=== PATIENT | female | born 1975 | race Caucasian/White ===

== ENCOUNTER 2017-06-28 09:16 | Day surgery (SDC) | payer OTHER ==
[2017-06-25 10:13] VITALS: BMI 19.3
[~2017-06-28 09:16] MED LIST: LEVOFLOXACIN 500 MG PREMIX BAG IVPB ONE
[2017-06-28] MEDS ORDERED: ONDANSETRON 4 MG/2 ML VIAL IVPUSH PRN (09:26)
[2017-06-28] MEDS ORDERED: oxyCODONE HCL 5 MG TABLET PO PRN (09:26)
[2017-06-28] MEDS ORDERED: LACTATED RINGERS SOLUTION 1,000 ML IV SCH (09:30)
[2017-06-28] MEDS ORDERED: MIDAZOLAM HCL 2 MG/2 ML SINGLE DOSE VIAL ONE ×2 (10:28)
[2017-06-28] MEDS ORDERED: LEVOFLOXACIN 500 MG PREMIX BAG IVPB ONE (10:30)
[2017-06-28] MEDS ORDERED: LEVOFLOXACIN 500 MG IVPB 100 ML IVPB ONE (10:47)
[2017-06-28] MEDS ORDERED: DEXAMETHASONE SOD PHOSPHATE 4 MG/1 ML VIAL ONE (10:56)
[2017-06-28 12:36] VITALS: TEMP 98
--- NOTE | 2017-06-28 13:11 | OP ---
Operative Note - Note: Operative Date: 06/28/17 Pre-Operative Diagnosis: left renal stone Operation: left eswl Findings: left 8 mm mid pole stone Post-Operative Diagnosis: Same as Pre-op Surgeon: Antolin Elizabeth Anesthesia: General
[2017-06-28 15:10] VITALS: BP 106/66; PULSE 84
--- NOTE | 2017-06-29 11:03 | OP ---
DATE OF OPERATION: 06/28/2017 PREOPERATIVE DIAGNOSIS: Left renal stone. POSTOPERATIVE DIAGNOSIS: Left renal stone. PROCEDURE: Left extracorporeal shock wave lithotripsy. ATTENDING: Merary Hector MD ANESTHESIA: General. DESCRIPTION OF OPERATION: The patient was brought in the operating room and placed in supine position on the operating room table. General anesthesia was administered. An 8-mm stone was noted under real-time ultrasonography and fluoroscopy. Antibiotics were given preoperatively. Lithotripsy was performed with 3000 impulses at 17 joules of power administered. Excellent fragmentation of the stone was noted. No complications were noted. The patient tolerated the procedure very well. MERARY HECTOR M.D. /[id number]
== END 2017-06-28 15:00 | disposition home or self-care (01) ==
LOC: JASU-SURG 09:16
PROVIDERS: ATTEND Urology
PROC: 0TF4XZZ Fragmentation in Left Kidney Pelvis, External Approach (ICD-10-PCS; principal; 2017-06-28 10:15)
DX: N20.0 Calculus of kidney (principal)
CPT/HCPCS: 84703; 94760

== ENCOUNTER 2017-11-15 21:58 | Emergency (ER) | payer OTHER ==
[2017-11-15 22:14] VITALS: BP 109/71; PULSE 72; TEMP 98.1; BMI 19.3
[2017-11-15] MEDS ORDERED: SODIUM CHLORIDE 1,000 ML IV ONE (23:55)
[2017-11-15] MEDS ORDERED: METOCLOPRAMIDE HCL INJECTION 10 MG/2 ML VIAL IVPUSH STA (23:55)
[2017-11-15] MEDS ORDERED: KETOROLAC TROMETHAMINE 30 MG/1 ML VIAL IVPUSH ONE (23:57)
--- NOTE | 2017-11-15 23:58 | PDOC ---
History of Present Illness - General Chief Complaint: Migraine Headache Stated Complaint: HEADACHE Time Seen by Provider: 11/15/17 22:42 History Source: Patient - History of Present Illness Initial Comments: 11/16/17 01:41 42 year old female with right sided headache, eye pain and face pain x 1 day with blurred vision. denies weakness, dizziness, diaphoresis, chest pain, NVD, abdominal pain. 11/16/17 01:43 Past History - Past Medical History Allergies/Adverse Reactions: Allergies Allergy/AdvReac Type Severity Reaction Status Date / Time morphine AdvReac Severe Verified 11/15/17 22:15 KIWI Allergy Severe Uncoded 11/15/17 22:15 Anemia: No Asthma: No Cancer: No Cardiac Disorders: No CVA: No COPD: No CHF: No Dementia: No Diabetes: No GI Disorders: No Disorders: No HTN: No Hypercholesterolemia: No Liver Disease: No Seizures: No Thyroid Disease: No - Surgical History Abdominal Surgery: Yes (renal stents/ then removed) Appendectomy: No Cardiac Surgery: No Cholecystectomy: Yes Lung Surgery: No Neurologic Surgery: No Orthopedic Surgery: No - Immunization History Immunization Up to Date: Yes - Suicide/Smoking/Psychosocial Hx Smoking Status: No Smoking History: Never smoked Have you smoked in the past 12 months: No Number of Cigarettes Smoked Daily: 0 Information on smoking cessation initiated: No Hx Alcohol Use: No Drug/Substance Use Hx: No Substance Use Type: None Hx Substance Use Treatment: No Review of Systems - Review of Systems Able to Perform ROS?: Yes Is the patient limited Zambian proficient: No Constitutional: No: Symptoms Reported, See HPI, Chills, Diaphoresis, Fever, Loss of Appetite, Malaise, Night Sweats, Weakness, Weight Stable, Unintentional Wgt. Loss, Unexplained wgt Loss, Other ABD/GI: No: Symptoms Reported, See HPI, Abdominal Distended, Abd. Pain w/ defecation, Blood Streaked Bowels, Constipated, Diarrhea, Difficulty Swallowing , Nausea, Poor Appetite, Poor Fluid Intake, Rectal Bleeding, Vomiting, Indigestion, Abdominal cramping, Tarry Stools, Other : No: Symptoms Reported, See HPI, Burning, Dysuria, Discharge, Frequency, Flank Pain, Hematuria, Incontinence, Pain, Urgency, Testicular Mass, Testicular Swelling, Lesions, Testicular Pain, Other Neurological: Yes: Headache. No: Symptoms reported, See HPI, Numbness, Paresthesia, Pre-Existing Deficit, Seizure, Tingling, Tremors, Weakness, Unsteady Gait, Ataxia, Dizziness, Other *Physical Exam - Vital Signs Last Vital Signs Temp Pulse Resp BP Pulse Ox 98.1 F 72 18 109/71 97 11/15/17 22:11 11/15/17 22:11 11/15/17 22:11 11/15/17 22:11 11/15/17 22:11 - Physical Exam General Appearance: Yes: Appropriately Dressed HEENT: positive: Normal ENT Inspection Respiratory/Chest: positive: Lungs Clear, Normal Breath Sounds Cardiovascular: positive: Regular Rhythm, Regular Rate Gastrointestinal/Abdominal: positive: Normal Bowel Sounds, Soft Extremity: positive: Normal Capillary Refill, Normal Inspection, Normal Range of Motion Integumentary: positive: Normal Color, Dry, Warm Neurologic: positive: wellness educator II-XII NML intact, Fully Oriented, Alert, Normal Mood/ Affect, Normal Response, Motor Strength 5/5, Finger to Nose, Other (PERRLA, VIsion right eye 20/25 left eye 20/20 with glasses) ED Treatment Course - LABORATORY CBC & Chemistry Diagram: 11/15/17 00:20 11/15/17 00:20 Progress Note - Progress Note Progress Note: A: headache P: CBC CMP UA UHCG CT head: neg *DC/Admit/Observation/Transfer Diagnosis at time of Disposition: Tension headache - Discharge Dispostion Disposition: HOME - Referrals Referrals: Batsheva Gomez MD [Primary Care Provider] - Call tomorrow - Patient Instructions Printed Discharge Instructions: Tension Headache Additional Instructions: drink plenty of fluids. follow up with your doctor as soon as possible you may take tylenol or ibuprofen for headache. - Post Discharge Activity
[2017-11-16] MEDS ORDERED: KETOROLAC TROMETHAMINE 30 MG/1 ML VIAL ONE (00:20)
[2017-11-16] MEDS ORDERED: METOCLOPRAMIDE HCL INJECTION 10 MG/2 ML VIAL ONE (00:20)
[2017-11-16 00:27] LABS: BASO % 1.9 % (0-2.0); EOS % 4.3 % (0-4.5); HEMATOCRIT 32.5 % (32.4-45.2); HEMOGLOBIN 10.6 GM/dL (10.7-15.3); LYMPH % 41.3 % (8-40); MCH 29.1 pg (25.7-33.7); MCHC 32.6 g/dl (32.0-36.0); MEAN CELL VOLUME 89.1 fl (80-96); MEAN PLT VOLUME 8.6 fl (7.5-11.1); NEUT % 40.5 % (42.8-82.8); PLATELET COUNT 342 K/MM3 (134-434); RBC 3.65 M/mm3 (3.60-5.2); RDW 17.5 % (11.6-15.6); WHITE BLOOD COUNT 6.2 K/mm3 (4.0-10.0)
[2017-11-16 00:42] LABS: INR 1.09 (0.82-1.09); PROTHROMBIN TIME (PATIENT) 12.3 SEC (9.98-11.88)
[2017-11-16 00:45] LABS: URINE APPEARANCE SLCLOUDY; URINE BILIRUBIN NEGATIVE (NEGATIVE); URINE BLOOD NEGATIVE (NEGATIVE); URINE COLOR LTYELLOW; URINE GLUCOSE (UA) NEGATIVE (NEGATIVE); URINE KETONE NEGATIVE (NEGATIVE); URINE LEUK ESTERASE NEGATIVE (NEGATIVE); URINE NITRITE NEGATIVE (NEGATIVE); URINE PROTEIN NEGATIVE (NEGATIVE); URINE UROBILINOGEN NEGATIVE mg/dL (0.2-1.0)
[2017-11-16 00:50] LABS: ALBUMIN 3.6 g/dl (3.4-5.0); ANION GAP 6 (8-16); BILIRUBIN,TOTAL 0.2 mg/dL (0.2-1.0); BLOOD UREA NITROGEN 17 mg/dL (7-18); CALCIUM 8.5 mg/dL (8.5-10.1); CHLORIDE 106 mmol/L (98-107); CO2 29 mmol/L (21-32); CREATININE 0.7 mg/dL (0.55-1.02); GLUCOSE,RANDOM 100 mg/dL (74-106); POTASSIUM 4.3 mmol/L (3.5-5.1); SGOT/AST 13 U/L (15-37); SGPT/ALT 17 U/L (12-78); SODIUM 141 mmol/L (136-145); TOT PROT 7.3 g/dl (6.4-8.2)
[2017-11-16 00:51] LABS: ALK PHOS 70 U/L (45-117)
== END 2017-11-16 02:05 | disposition home or self-care (01) ==
LOC: JER 21:58
PROC: 3E0333Z Introduction of Anti-inflammatory into Peripheral Vein, Percutaneous Approach (ICD-10-PCS; principal; 2017-11-15)
PROC: 3E033GC Introduction of Other Therapeutic Substance into Peripheral Vein, Percutaneous Approach (ICD-10-PCS; 2017-11-15)
DX: G44.209 Tension-type headache, unspecified, not intractable (principal)
CPT/HCPCS: 36415; 70450-TC; 80053; 81003; 84703; 85025; 85610; 86850; 86900; 86901; 96374; 96375; 99282-25

== ENCOUNTER 2018-04-09 22:55 | Emergency (ER) | payer OTHER ==
[2018-04-09 23:07] VITALS: TEMP 98; BMI 20.1
--- NOTE | 2018-04-09 23:27 | PDOC ---
History of Present Illness - History of Present Illness Initial Comments: 04/10/18 00:22 The patient is a 42 year old female with no significant PMH who presents for evaluation of generalized weakness and chest pain. The patient reports a 6 day history of worsening generalized weakness. She noted intermittent sharp left sided chest pain over the past 4 days prompting her presentation to the ED for further evaluation. She denies similar symptoms in the past and otherwise denies fevers, chills, SOB, nausea, vomiting, abdominal pain, or changes with urination or bowel movements. <Gregory Cheatham - Last Filed: 04/10/18 01:46> <Juany Gonzales - Last Filed: 04/10/18 03:30> - General Chief Complaint: Chest Pain Stated Complaint: CHEST PAIN Time Seen by Provider: 04/09/18 23:27 Past History - Past Medical History Anemia: No Asthma: No Cancer: No Cardiac Disorders: No CVA: No COPD: No CHF: No Dementia: No Diabetes: No GI Disorders: No Disorders: No HTN: No Hypercholesterolemia: No Liver Disease: No Seizures: No Thyroid Disease: No - Surgical History Abdominal Surgery: Yes (renal stents/ then removed) Appendectomy: No Cardiac Surgery: No Cholecystectomy: Yes Lung Surgery: No Neurologic Surgery: No Orthopedic Surgery: No - Immunization History Immunization Up to Date: Yes - Suicide/Smoking/Psychosocial Hx Smoking Status: No Smoking History: Never smoked Have you smoked in the past 12 months: No Number of Cigarettes Smoked Daily: 0 Information on smoking cessation initiated: No Hx Alcohol Use: No Drug/Substance Use Hx: No Substance Use Type: None Hx Substance Use Treatment: No <Gregory Cheatham - Last Filed: 04/10/18 01:46> <Juany Gonzales - Last Filed: 04/10/18 03:30> - Past Medical History Allergies/Adverse Reactions: Allergies Allergy/AdvReac Type Severity Reaction Status Date / Time morphine AdvReac Severe Verified 04/09/18 23:07 KIWI Allergy Severe Uncoded 04/09/18 23:07 Review of Systems - Review of Systems Comments:: 04/10/18 00:23 Constitutional: Generalized Weakness. No fevers, chills, malaise HEENT: No Rhinorrhea, nasal congestion, visual changes Cardiovascular: Chest pain, Lightheadedness. No syncope, palpitations, Respiratory: No Cough, SOB, Hemoptysis, Gastrointestinal: No Abdominal pain, Nausea, Vomiting, Constipation, Diarrhea, Melena Genitourinary: No Dysuria, Frequency, Urgency, Hesitancy, Hematuria, Flank pain Musculoskeletal: No Myalgia, arthralgia Skin: No rashes, itching, bruising, pallor Neurologic: No Headache, Dizziness, Numbness, Weakness, or Tingling Psychiatric: No Hallucinations. No SI or HI <Gregory Cheatham - Last Filed: 04/10/18 01:46> *Physical Exam - Vital Signs Last Vital Signs Temp Pulse Resp BP Pulse Ox 98.0 F 75 16 108/67 100 04/09/18 23:04 04/09/18 23:04 04/09/18 23:04 04/09/18 23:04 04/09/18 23:04 - Physical Exam Comments: 04/10/18 00:24 General Appearance: Nourished. No Apparent Distress HEENT: No Pharyngeal Erythema, Tonsillar Exudate, Tonsillar Erythema Neck: No Cervical Lymphadenopathy Respiratory/Chest: Lungs Clear, Normal Breath Sounds. Reproducible tenderness to palpation along the left sided sternum. No Crackles, Rales, Rhonchi, Wheezing Cardiovascular: Regular Rhythm, Regular Rate. No Murmur, Gallops, Rubs Gastrointestinal/Abdominal: Normal Bowel Sounds, Soft. No Guarding, Rebound, Tenderness Musculoskeletal: No CVA Tenderness Extremity: Normal Capillary Refill Integumentary: Normal Color, Dry, Warm Neurologic: Fully Oriented, Alert, Normal Mood/Affect, Normal Response, <Gregory Cheatham - Last Filed: 04/10/18 01:46> - Vital Signs Last Vital Signs Temp Pulse Resp BP Pulse Ox 98.0 F 70 18 90/61 100 04/09/18 23:04 04/10/18 01:19 04/10/18 01:19 04/10/18 01:19 04/10/18 01:19 <Juany Gonzales - Last Filed: 04/10/18 03:30> Heart Score/ECG Review #1 ECG reviewed & interpreted by me at: 00:33 General ECG Interpretation: Sinus Rhythm, Normal Rate, Normal Intervals, No acute ischemic changes <Gregory Cheatham - Last Filed: 04/10/18 01:46> ED Treatment Course - LABORATORY CBC & Chemistry Diagram: 04/09/18 23:30 04/09/18 23:30 <Ney Cheathamel - Last Filed: 04/10/18 01:46> - LABORATORY CBC & Chemistry Diagram: 04/09/18 23:30 04/09/18 23:30 - ADDITIONAL ORDERS Additional order review: Laboratory Results 04/10/18 04/09/18 02:05 23:30 Sodium 139 Potassium 4.1 Chloride 105 Carbon Dioxide 30 Anion Gap 4 L BUN 13 Creatinine 0.6 Creat Clearance w eGFR > 60 Random Glucose 96 Calcium 8.5 Total Bilirubin < 0.1 L AST 15 ALT 18 Alkaline Phosphatase 67 Creatine Kinase 114 Troponin I < 0.02 Total Protein 6.8 Albumin 3.5 Serum , Qual Negative 04/09/18 23:30 RBC 3.41 L MCV 88.9 MCHC 32.8 RDW 17.0 H MPV 8.7 Neutrophils % 57.8 D Lymphocytes % 27.0 D Monocytes % 11.6 H Eosinophils % 2.4 Basophils % 1.2 - Medications Given in the ED: ED Medications Discontinued Medications Generic Name Dose Route Start Last Admin Trade Name Rigoberto PRN Reason Stop Dose Admin Acetaminophen 1,000 mg 04/09/18 23:33 04/09/18 23:41 Ofirmev Injection - IVPB 04/09/18 23:34 1,000 mg ONCE ONE Administration Sodium Chloride 1,000 mls @ 1,000 mls/hr 04/09/18 23:33 04/09/18 23:41 Normal Saline - IV 04/10/18 00:32 1,000 mls/hr ASDIR STA Administration <Juany Gonzales - Last Filed: 04/10/18 03:30> Medical Decision Making - Medical Decision Making 04/10/18 00:26 The patient is a 42 year old female with no significant PMH who presents for evaluation of generalized weakness and chest pain. Differential includes but is not limited to: ACS, Musculoskeletal, Arrhythmia, Infectious, Metabolic Derangement. Given the patient's history and physical exam, we will obtain a cbc, cmp, troponin, ekg, chest plain film, UA to evaluate further for possible etiologies. We will treat with iv fluids and iv tylenol and continue to monitor and reassess while here in the ED. <Gregory Cheatham - Last Filed: 04/10/18 01:46> *DC/Admit/Observation/Transfer <Gregory Cheatham - Last Filed: 04/10/18 01:46> - Discharge Dispostion Decision to Admit order: No <Juany Gonzales - Last Filed: 04/10/18 03:30> Diagnosis at time of Disposition: Chest pain Qualifiers: Chest pain type: unspecified Qualified Code(s): R07.9 - Chest pain, unspecified - Discharge Dispostion Disposition: HOME Condition at time of disposition: Improved - Referrals Referrals: Tashi Cisneros MD [Staff Physician] - - Patient Instructions Printed Discharge Instructions: DI for Atypical Chest Pain Additional Instructions: Please return to the ER if you experience concerning or worsening symptoms including worsening chest pain, vomiting, or difficulty breathing. Your lab results were normal here in the ER. Please call to schedule a follow up appointment with our hostage negotiator Dr. Stewart within 2-3 days to discuss your ER visit and further management of your symptoms.
[2018-04-09] MEDS ORDERED: ACETAMINOPHEN 1000 MG/100 ML VIAL (NON FORMULARY) IVPB ONE (23:33)
[2018-04-09] MEDS ORDERED: SODIUM CHLORIDE 1,000 ML IV STA (23:33)
[2018-04-09] MEDS ORDERED: ACETAMINOPHEN INJECTION 100 ML IVPB ONE (23:36)
[2018-04-09 23:48] LABS: BASO % 1.2 % (0-2.0); EOS % 2.4 % (0-4.5); HEMATOCRIT 30.4 % (32.4-45.2); HEMOGLOBIN 9.9 GM/dL (10.7-15.3); MCH 29.1 pg (25.7-33.7); MCHC 32.8 g/dl (32.0-36.0); MEAN CELL VOLUME 88.9 fl (80-96); MEAN PLT VOLUME 8.7 fl (7.5-11.1); MONO % 11.6 % (3.8-10.2); NEUT % 57.8 % (42.8-82.8); PLATELET COUNT 366 K/MM3 (134-434); RBC 3.41 M/mm3 (3.60-5.2); WHITE BLOOD COUNT 8.5 K/mm3 (4.0-10.0)
--- NOTE | 2018-04-09 23:53 | PDOC ---
Attending Attestation - HPI HPI: 04/10/18 00:32 The patient is a 42 year old female with a significant PMH of chronic constipation who presents to the emergency department with 6 days of generalized weakness and 4 days of intermittent chest pain. She describes her chest pain as an intermittent sharp sensation localized on the left side with no radiation, which is aggravated by palpation and is nonexertional. The patient denies shortness of breath. She denies fevers or chills. She denies nausea or vomiting. Allergies: Morphine PCP: None reported. <Gagandeep Lopez - Last Filed: 04/10/18 00:32> - Resident Resident Name: Gregory Cheatham - ED Attending Attestation I have performed the following: I have examined & evaluated the patient, The case was reviewed & discussed with the resident, I agree w/resident's findings & plan, Exceptions are as noted - Physicial Exam PE: 04/10/18 00:31 GENERAL: The patient is in no acute distress. HEAD: Normal with no signs of trauma. EYES: PERRLA, EOMI, sclera anicteric, conjunctiva clear. ENT: Ears normal, nares patent, oropharynx clear without exudates. Moist mucous membranes. NECK: Normal range of motion, supple without lymphadenopathy, JVD, or masses. LUNGS: Breath sounds equal, clear to auscultation bilaterally. No wheezes, and no crackles. HEART:Regular rate and rhythm, normal S1 and S2 without murmur, rub or gallop. ABDOMEN: Soft, nontender, normoactive bowel sounds. No guarding, no rebound. No masses palpable. EXTREMITIES: Normal range of motion, no edema. No clubbing or cyanosis. No erythema, or tenderness. NEUROLOGICAL: Cranial nerves II through XII grossly intact. Normal speech. No focal neurological deficits. MUSCULOSKELETAL: Back non-tender to palpation, no CVA tenderness SKIN: Warm, Dry, normal turgor, no rashes or lesions noted. - Medical Decision Making DD includes: costochondritis/musculoskeletal (pain is reproducible with palpation), Pleural effusion, pneumothroax, PE unlikely (Low risk wells, PERC negative) ACS unlikely - chest pain does not worsen with exertion of any kind 04/10/18 00:31 EKG: SR rate of 68 bpm, axis nml, no st elevations or depressions, T wave upright 04/10/18 01:35 Laboratory Tests 04/09/18 04/09/18 23:30 23:30 WBC 8.5 Hgb 9.9 L Hct 30.4 L Plt Count 366 Sodium 139 Potassium 4.1 Chloride 105 Carbon Dioxide 30 BUN 13 Creatinine 0.6 Random Glucose 96 Creatine Kinase 114 Troponin I < 0.02 pt given tylenol for pain Will plan to discharge to home pt will be able to follow up with Dr Peacock in the office Return to the ER for any other concerns to complaints <Dhara Vasquez - Last Filed: 04/10/18 01:38> Heart Score/ECG Review - History History: Slightly suspicious - Electrocardiogram EKG: Normal - Age Age: </= 45 - Risk Factors Based on the list above the patient has:: No risk factors known - Troponin Troponin: </= normal limit - Score Heart Score - Total: 0 <Dhara Vasquez - Last Filed: 04/10/18 01:38>
[2018-04-10 00:12] LABS: ALBUMIN 3.5 g/dl (3.4-5.0); ANION GAP 4 (8-16); BLOOD UREA NITROGEN 13 mg/dL (7-18); CALCIUM 8.5 mg/dL (8.5-10.1); CHLORIDE 105 mmol/L (98-107); CO2 30 mmol/L (21-32); CREATININE 0.6 mg/dL (0.55-1.02); GLUCOSE,RANDOM 96 mg/dL (74-106); POTASSIUM 4.1 mmol/L (3.5-5.1); SGOT/AST 15 U/L (15-37); SODIUM 139 mmol/L (136-145); TOT PROT 6.8 g/dl (6.4-8.2)
[2018-04-10 00:16] LABS: ALK PHOS 67 U/L (45-117); SGPT/ALT 18 U/L (12-78)
[2018-04-10 00:57] LABS: BILIRUBIN,TOTAL < 0.1 mg/dL (0.2-1.0)
[2018-04-10 01:20] VITALS: BP 90/61; PULSE 70
--- NOTE | 2018-04-10 10:08 | EKG ---
Test Reason : Blood Pressure : / mmHG Vent. Rate : 067 BPM Atrial Rate : 067 BPM P-R Int : 172 ms QRS Dur : 082 ms QT Int : 410 ms P-R-T Axes : 042 012 030 degrees QTc Int : 433 ms NORMAL SINUS RHYTHM NORMAL ECG WHEN COMPARED WITH ECG OF 23-APR-2014 11:02, NO SIGNIFICANT CHANGE WAS FOUND Confirmed by CHIVO MUHAMMAD MD ([id number]) on 04/10/2018 10:08:02 AM Referred By: Confirmed By:CHIVO MUHAMMAD MD
== END 2018-04-10 03:39 | disposition home or self-care (01) ==
LOC: JER 22:55
PROC: 3E033NZ Introduction of Analgesics, Hypnotics, Sedatives into Peripheral Vein, Percutaneous Approach (ICD-10-PCS; principal; 2018-04-09)
DX: R07.9 Chest pain, unspecified (principal)
CPT/HCPCS: 36415; 71045-TC-FY; 80053; 82550; 84484; 84703; 85025; 93005; 93010; 96374; 99283-25; J0131; J7030

== ENCOUNTER 2018-06-09 22:34 | Emergency (ER) | payer OTHER ==
[2018-06-09 22:37] VITALS: BP 95/63; PULSE 72; TEMP 98.4; BMI 20.1
--- NOTE | 2018-06-09 23:00 | PDOC ---
History of Present Illness - General Chief Complaint: Lightheaded Stated Complaint: EAR PROBLEM Time Seen by Provider: 06/09/18 22:58 History Source: Patient Exam Limitations: No Limitations - History of Present Illness Initial Comments: 06/09/18 23:27 Ms. Gordon is a 42 yo F with a hx of nephrolithiasis who presents to the emergency department for right ear and post-auricular pain with concurrent right numbness on the right side of the head. She states the ear and post auricular pain has been ongoing for the past month without progressive worsening. She states she cleans her ears everyday with soap and water and uses her nail to get the soap out. Starting today, she began having numbness on the right side of her head. Endorses having multiple sneezes throughout the month that is new onset with multiple epistaxis with the most recent 1 week ago. Denies the following: recent URI, fevers, chills, nausea, vomiting, dizziness, chest pain, SOB, recent trauma, dysuria, diarrhea, and melena. Past History - Past Medical History Allergies/Adverse Reactions: Allergies Allergy/AdvReac Type Severity Reaction Status Date / Time morphine AdvReac Severe Verified 06/09/18 22:37 KIWI Allergy Severe Uncoded 06/09/18 22:37 Home Medications: Ambulatory Orders Ciprofloxacin HCl/Dexameth [Ciprodex Otic Suspension] 4 drop AD BID 7 Days #1 bottle 06/09/18 Anemia: No Asthma: No Cancer: No Cardiac Disorders: No CVA: No COPD: No CHF: No Dementia: No Diabetes: No GI Disorders: No Disorders: No HTN: No Hypercholesterolemia: No Liver Disease: No Seizures: No Thyroid Disease: No - Surgical History Abdominal Surgery: Yes (renal stents/ then removed) Appendectomy: No Cardiac Surgery: No Cholecystectomy: Yes Lung Surgery: No Neurologic Surgery: No Orthopedic Surgery: No - Immunization History Immunization Up to Date: Yes - Suicide/Smoking/Psychosocial Hx Smoking Status: No Smoking History: Never smoked Have you smoked in the past 12 months: No Number of Cigarettes Smoked Daily: 0 Hx Alcohol Use: No Drug/Substance Use Hx: No Substance Use Type: None Hx Substance Use Treatment: No Review of Systems - Review of Systems Able to Perform ROS?: Yes Constitutional: No: Chills, Diaphoresis, Fever, Weakness HEENTM: Yes: Ear Pain (right). No: Eye Pain, Recent change in vision, Nose Pain , Nose Congestion, Throat Pain, Throat Swelling, Mouth Pain Respiratory: No: Cough, Shortness of Breath, Hemoptysis Cardiac (ROS): No: Chest Pain, Lightheadedness, Palpitations, Syncope, Chest Tightness ABD/GI: No: Abdominal Distended, Constipated, Diarrhea, Nausea, Rectal Bleeding , Vomiting, Tarry Stools : No: Burning, Dysuria, Flank Pain, Hematuria Musculoskeletal: No: Back Pain Integumentary: No: Rash Neurological: Yes: Numbness (right side of the head). No: Headache, Tingling, Tremors, Weakness Psychiatric: No: Stressors Endocrine: No: Unexplained Weight Gain Hematologic/Lymphatic: No: Anemia *Physical Exam - Vital Signs Last Vital Signs Temp Pulse Resp BP Pulse Ox 98.4 F 72 18 95/63 98 06/09/18 22:35 06/09/18 22:35 06/09/18 22:35 06/09/18 22:35 06/09/18 22:35 - Physical Exam General Appearance: Yes: Nourished, Appropriately Dressed HEENT: positive: EOMI, DOC, Normal Voice, Symmetrical, Pharynx Normal, TM Dull (right side), Other (irritation to the ear canal at the 6 o'clock position right ear). negative: TM Bulging, TM Erythema Neck: positive: Trachea midline. negative: Lymphadenopathy (R), Lymphadenopathy (L) Respiratory/Chest: positive: Lungs Clear, Normal Breath Sounds. negative: Chest Tender, Respiratory Distress Cardiovascular: positive: Regular Rhythm, Regular Rate, S1, S2. negative: Systolic Murmur Vascular Pulses: Dorsalis-Pedis (R): 3+, Doralis-Pedis (L): 3+ Gastrointestinal/Abdominal: positive: Normal Bowel Sounds. negative: Tender Lymphatic: negative: Adenopathy Musculoskeletal: positive: Normal Inspection. negative: CVA Tenderness Extremity: positive: Normal Capillary Refill, Normal Inspection, Normal Range of Motion. negative: Tender, Pelvis Stable Integumentary: positive: Normal Color, Dry, Warm Neurologic: positive: terminal superintendent II-XII NML intact, Fully Oriented, Alert, Normal Mood/ Affect, Normal Response, Motor Strength 5/5 Medical Decision Making - Medical Decision Making 06/09/18 23:52 42 yo F presenting with ear canal pain and post auricular pain with associative right head numbness. Initial vitals: Initial Vital Signs Temp Pulse Resp BP Pulse Ox 98.4 F 72 18 95/63 98 06/09/18 22:35 06/09/18 22:35 06/09/18 22:35 06/09/18 22:35 06/09/18 22:35 ddx: BPPV, otitis externa vs media, mastoiditis, ear canal irritation (most likely), and sinusitis. She was evaluated and found to have no signs of infection on physical exam. On PE, we saw irritation in the right canal with slight dulling of the right TM. Likely the pain is due to excoriation from aggressive cleaning of the ear with the nail of the finger on a daily basis. will give her ciprodex. Dispo: DC to home *DC/Admit/Observation/Transfer Diagnosis at time of Disposition: Irritation of external ear canal Qualifiers: Laterality: right Qualified Code(s): H61.891 - Other specified disorders of right external ear - Discharge Dispostion Disposition: HOME Decision to Admit order: No - Prescriptions Prescriptions: Ciprofloxacin HCl/Dexameth [Ciprodex Otic Suspension] 4 drop AD BID 7 Days #1 bottle - Referrals Referrals: Batsheva Gomez MD [Primary Care Provider] - Aaron Rogers MD [Staff Physician] - - Patient Instructions Additional Instructions: You have been seen in the emergency department to evaluate your ear pain and right sided head numbness. Based on our physical examination, it appears you have irritations in the ear canal. Please follow up with your primary medical doctor within 24-48 hours. In addition, please follow up with Dr. Rogers the ENT specialist which ultimately may include needing a MRI to evaluate the ear more in depth. Please take the drops in the right ear twice a day 4 drops each time for 7 days. Please return to the emergency department if you have worsening of your symptoms or develop new concerning symptoms. Thank you. - Post Discharge Activity
--- NOTE | 2018-06-10 | PDOC ---
Attending Attestation - Resident Resident Name: RaulKelby - ED Attending Attestation I have performed the following: I have examined & evaluated the patient, The case was reviewed & discussed with the resident, I agree w/resident's findings & plan - HPI HPI: 06/09/18 23:55 Healthy 42-year-old female presents with 1 month of right ear irritation and episode today of lightheadedness. Patient describes 1 month of right ear canal discomfort with occasional dizziness with positional changes, particularly bending down. No hearing change/loss, no sinus issues, no f/c. no imbalance otherwise. Today, had 1-2 minutes of "scalp numbness" on the right so she presents for evaluation. no motor weakness, no headache, no tinnitus, no n/v. now resolved, presents for evaluation - Physicial Exam PE: 06/09/18 23:58 Vital signs normal Well-appearing seated in stretcher, speaking on her cell phone and texting Head is atraumatic, sensation is intact Right external ear with some superficial excoriations and auditory canal irritation, some dullness of the tympanic membrane but there is no clear effusion or infection. No periauricular lymphadenopathy or mastoid tenderness. Left ear is normal. Neck supple, no audible carotid bruit NEURO: Mental status: The patient is alert and oriented x3. Cranial nerves: Cranial nerves II through XII are intact Motor: The upper extremities are 5 over 5 in all muscle groups. The lower extremities are 5 over 5 in all muscle groups. Sensation: Sensation is intact to light touch throughout. Cerebellar: [id number] is normal in both upper extremities. Gait: Normal. Heel and toe walking are normal. Tandem gait is normal. - Medical Decision Making 06/09/18 23:59 42-year-old female with possible inflammatory process in her right auditory canal and right TM, neurologically intact without evidence of acute infection. Question Mnire's or labyrinthitis the tinnitus or vertigo, had normal CT imaging in November of this year. Patient reassured, she was most concerned that there was a foreign body in her ear We'll prescribe Ciprodex given the skin irritation and inflammation ENT referral, MRI as outpatient if symptoms persist Understands return criteria
== END 2018-06-10 00:31 | disposition home or self-care (01) ==
LOC: JER 22:34
DX: H61.891 Other specified disorders of right external ear (principal); N20.0 Calculus of kidney
CPT/HCPCS: 99281-25

== ENCOUNTER 2018-10-28 20:06 | Emergency (ER) | payer OTHER ==
[2018-10-28 20:12] VITALS: BP 112/70; PULSE 66; TEMP 97.4; BMI 20.9
--- NOTE | 2018-10-28 20:14 | PDOC ---
Rapid Medical Evaluation Time Seen by Provider: 10/28/18 20:09 Medical Evaluation: Allergies Allergy/AdvReac Type Severity Reaction Status Date / Time morphine AdvReac Severe Verified 10/27/18 16:41 KIWI Allergy Severe Uncoded 10/27/18 16:41 10/28/18 20:09 Pt c/o: rt flank pain since today, no chills, + nausea, pain to epigastric with eating, pending lithotripsy for left renal colic. Pt on brief exam: rt cva tenderness Patient ordered for: cbc. comp, lipase, ua, upreg, uc x Pt to proceed to the ED Discharge Disposition - Diagnosis Abdominal pain - Referrals Referrals: Batsheva Gomez MD [Primary Care Provider] - - Patient Instructions - Post Discharge Activity
[2018-10-28 21:01] LABS: BASO % 1.4 % (0-2.0); EOS % 2.3 % (0-4.5); HEMATOCRIT 31.3 % (32.4-45.2); HEMOGLOBIN 10.9 GM/dL (10.7-15.3); MCH 31.5 pg (25.7-33.7); MCHC 34.9 g/dl (32.0-36.0); MEAN CELL VOLUME 90.1 fl (80-96); MEAN PLT VOLUME 9.1 fl (7.5-11.1); MONO % 13.1 % (3.8-10.2); NEUT % 47.2 % (42.8-82.8); PLATELET COUNT 355 K/MM3 (134-434); RBC 3.48 M/mm3 (3.60-5.2); RDW 15.2 % (11.6-15.6); WHITE BLOOD COUNT 7.9 K/mm3 (4.0-10.0)
--- NOTE | 2018-10-28 21:14 | PDOC ---
History of Present Illness - General Chief Complaint: Pain, Acute Stated Complaint: RIGHT AND LEFT SIDE PAIN Time Seen by Provider: 10/28/18 20:09 History Source: Patient - History of Present Illness Initial Comments: 10/28/18 21:31 The patient is a 43 year old female with a PMH of L sided nephorlithiasis (s/p lithotripsy), R sided ureteral stent (2/2 to closed uterer) presents with B/L abdominal/flano pain. H/o recently diagnosed L sided nephrolithiasis with lithotripsy scheduled for Wednesday. Came to the ED this evening because she started to noticed R sided abdominal/flank pain. No fevers/chills, dysuria/ hematuria. Endorses nausea w/o vomiting. Allergy: Morphine Surgical:Hysterectomy, GB, Lithotripsy Social: denies toxic habits PMD: Dr. Fowler [place] Measurer: Dr. Elizabeth Past History - Past Medical History Allergies/Adverse Reactions: Allergies Allergy/AdvReac Type Severity Reaction Status Date / Time morphine AdvReac Severe Verified 10/28/18 20:12 KIWI Allergy Severe Uncoded 10/28/18 20:12 Home Medications: Ambulatory Orders NK [No Known Home Medication] 10/27/18 Anemia: No Asthma: No Cancer: No Cardiac Disorders: No CVA: No COPD: No CHF: No Dementia: No Diabetes: No GI Disorders: No Disorders: No HTN: No Hypercholesterolemia: No Liver Disease: No Seizures: No Thyroid Disease: No - Surgical History Abdominal Surgery: Yes (renal stents/ then removed) Appendectomy: No Cardiac Surgery: No Cholecystectomy: Yes Lung Surgery: No Neurologic Surgery: No Orthopedic Surgery: No - Immunization History Immunization Up to Date: Yes - Suicide/Smoking/Psychosocial Hx Smoking Status: No Smoking History: Never smoked Have you smoked in the past 12 months: No Number of Cigarettes Smoked Daily: 0 Hx Alcohol Use: No Drug/Substance Use Hx: No Substance Use Type: None Hx Substance Use Treatment: No *Physical Exam - Vital Signs Last Vital Signs Temp Pulse Resp BP Pulse Ox 97.4 F L 66 18 112/70 100 10/28/18 20:09 10/28/18 20:09 10/28/18 20:09 10/28/18 20:09 10/28/18 20:09 Moderate Sedation - Procedure Monitoring Vital Signs: Procedure Monitoring Vital Signs Temperature 97.4 F L 01/25/19 20:09 Pulse Rate 66 10/28/18 20:09 Respiratory Rate 18 10/28/18 20:09 Blood Pressure 112/70 10/28/18 20:09 O2 Sat by Pulse Oximetry (%) 100 10/28/18 20:09 ED Treatment Course - LABORATORY CBC & Chemistry Diagram: 10/28/18 20:39 10/28/18 20:39 Medical Decision Making - Medical Decision Making 10/28/18 21:43 43 year old female with B/L flank pain. H/o known nephrolith on L w/pending lithotripsy, now c/o R sided flank and abdominal pain. VS unremarkable. Mild TTP in suprapubic area. Frontal diagnosis: nephrolithiasis, cystitis/ pyelonephritis, gastritis, PUD, also consider . Will obtain basic labs , UA/Urine culture, Urine . and Renal U/S. Tylenol for pain control. Reassess. 10/28/18 22:51 Urine negative UA clean No leukocytosis CMP unremarkable Patient reassessed @ bedside. Symptomatically improved. Renal U/S pending. 10/28/18 23:27 Renal ultrasound shows mild to moderate R sided hydronephrosis. As patient is symptomatically improved, ambulatory, tolerating PO intake and has previously scheduled nephrology appointment in 2 days will discharge home with return precautions. Patient is comfortable with discharge plan and understands the importance of follow-up evaluation. I discussed the physical exam findings, ancillary test results and final diagnoses with the patient. I answered all of the patient's questions and the patient understands her discharge instructions and follow up care including follow-up with her nephrology as previously scheduled. The patient will return to the Emergency Department with any new/worsening/concerning symptoms. *DC/Admit/Observation/Transfer Diagnosis at time of Disposition: Flank pain - Discharge Dispostion Disposition: HOME Condition at time of disposition: Good Decision to Admit order: No - Referrals Referrals: Batsheva Gomez MD [Primary Care Provider] - - Patient Instructions Printed Discharge Instructions: Hydronephrosis -- Adult Additional Instructions: You were evaluated today for your flank pain. An ultrasound of your kidneys showed R sided hydronephrosis. At this time you are safe for discharge home. We are providing you with a copy of your ultrasound. Please take this to your previously scheduled nephrology appointment. 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 Return to the Emergency Department for any new/worsening/concerning symptoms. - Post Discharge Activity
[2018-10-28] MEDS ORDERED: ACETAMINOPHEN 1000 MG/100 ML VIAL (NON FORMULARY) IVPB ONE (21:35)
--- NOTE | 2018-10-28 21:40 | PDOC ---
Attending Attestation - HPI HPI: 10/28/18 22:06 The patient is a 43-year-old female with a past medical history significant for L sided nephrolithiasis, R sided ureteral stent presents to the emergency department with abdominal pain. The patient presents with bilateral flank pain. The patient presents with 1 day hx of bilateral flank pain, worse on the right side. The patient reports associated concern of Mid-upper abdominal pain, that s aggravated with PO intake. The patient states she was recently diagnosed with nephrolithiasis and is scheduled for lithotripsy on 10/31/2017 at 6:[address] Elizabeth. Denies fever, chills, chest pain, SOB, urinary symptoms or changes in bowel habits. Allergies: Morphine and Kiwi Social history: None reported Surgical history: Hysterectomy, GB, Lithotripsy PCP: Dr. Fowler - Physicial Exam PE: 10/28/18 23:25 GENERAL: Awake, alert, and fully oriented, in no acute distress HEAD: No signs of trauma EYES: PERRLA, EOMI, sclera anicteric, conjunctiva clear ENT: Auricles normal inspection, hearing grossly normal, nares patent, oropharynx clear without exudates. Moist mucosa NECK: Normal ROM, supple, no lymphadenopathy, JVD, or masses LUNGS: Breath sounds equal, clear to auscultation bilaterally. No wheezes, and no crackles HEART: Regular rate and rhythm, normal S1 and S2, no murmurs, rubs or gallops ABDOMEN: No flank pain. Soft, nontender. No guarding, no rebound. No masses EXTREMITIES: Normal range of motion, no edema. No clubbing or cyanosis. No cords, erythema, or tenderness NEUROLOGICAL: Cranial nerves II through XII grossly intact. Normal speech. SKIN: Warm, Dry, normal turgor, no rashes or lesions noted. - Medical Decision Making 10/28/18 22:06 Documentation prepared by Nurys Miller, acting as medical underwriter for Juany Gonzales MD. <Nurys Miller - Last Filed: 10/28/18 23:24> - Resident Resident Name: Stephany Whaley - ED Attending Attestation I have performed the following: I have examined & evaluated the patient, The case was reviewed & discussed with the resident, I agree w/resident's findings & plan - Medical Decision Making 10/28/18 23:26 Labs normal; sono normal 10/28/18 23:33 Pt's exam is normal. She feels better with ofirmev; Pt is afebrile. She has no flank pain with hard percussion. 10/29/18 00:47 Pt will follow up for outpatient surgical procedure with her urologist in 3 days as previously scheduled. Stable for d/c home. Return for worsening pain or fever. <Juany Gonzales - Last Filed: 10/29/18 00:48>
[2018-10-28 21:52] LABS: ALBUMIN 3.8 g/dl (3.4-5.0); ALK PHOS 70 U/L (45-117); ANION GAP 8 MMOL/L (8-16); BILIRUBIN,TOTAL 0.2 mg/dL (0.2-1); BLOOD UREA NITROGEN 15 mg/dL (7-18); CALCIUM 8.3 mg/dL (8.5-10.1); CHLORIDE 104 mmol/L (98-107); CO2 28 mmol/L (21-32); CREATININE 0.7 mg/dL (0.55-1.3); GLUCOSE,RANDOM 86 mg/dL (74-106); LIPASE 228 U/L (73-393); MAGNESIUM 1.8 mg/dL (1.8-2.4); POTASSIUM 3.8 mmol/L (3.5-5.1); SGOT/AST 11 U/L (15-37); SGPT/ALT 16 U/L (13-61); SODIUM 140 mmol/L (136-145); TOT PROT 7.1 g/dl (6.4-8.2)
[2018-10-28 22:19] LABS: URINE APPEARANCE SLCLOUDY; URINE BILIRUBIN NEGATIVE (<2.0 mg/dL); URINE COLOR YELLOW; URINE GLUCOSE (UA) NEGATIVE (NEGATIVE); URINE KETONE NEGATIVE (NEGATIVE); URINE LEUK ESTERASE NEGATIVE (NEGATIVE); URINE NITRITE NEGATIVE (NEGATIVE); URINE PROTEIN NEGATIVE (NEGATIVE); URINE UROBILINOGEN NEGATIVE mg/dL (0.2-1.0)
[2018-10-28 22:20] LABS: HCG,QUALITATIVE URINE Negative
[2018-10-28] MEDS ORDERED: ACETAMINOPHEN INJECTION 100 ML IVPB ONE (23:00)
== END 2018-10-28 23:34 | disposition home or self-care (01) ==
LOC: JER 20:06
PROC: 3E033NZ Introduction of Analgesics, Hypnotics, Sedatives into Peripheral Vein, Percutaneous Approach (ICD-10-PCS; principal; 2018-10-28)
DX: N13.30 Unspecified hydronephrosis (principal); Z87.442 Personal history of urinary calculi; Z90.49 Acquired absence of other specified parts of digestive tract; Z90.710 Acquired absence of both cervix and uterus
CPT/HCPCS: 36415; 76775-TC; 80053; 81003; 83690; 83735; 84703; 85025; 87086; 96374; 99283-25; J0131

== ENCOUNTER 2018-10-31 09:37 | Day surgery (SDC) | payer OTHER ==
[2018-10-27 16:41] VITALS: BMI 20.9
[2018-10-31] MEDS ORDERED: PROPOFOL 20 ML ONE (11:46)
[2018-10-31] MEDS ORDERED: LIDOCAINE HCL/PF 2% SDV 5ML VIAL ONE ×2 (11:46→12:09)
[2018-10-31] MEDS ORDERED: MIDAZOLAM HCL 2 MG/2 ML SINGLE DOSE VIAL ONE (11:46)
[2018-10-31] MEDS ORDERED: KETOROLAC TROMETHAMINE 30 MG/1 ML VIAL ONE (12:02)
--- NOTE | 2018-10-31 13:03 | OP ---
Operative Note - Note: Operative Date: 10/31/18 Pre-Operative Diagnosis: Left renal stone Operation: Left ESWL Findings: 3 mm upper pole left renal stone Surgeon: Antolin Elizabeth Anesthesia: Fractional Estimated Blood Loss (mls): 0
[2018-10-31 16:09] VITALS: BP 90/55; PULSE 76; TEMP 98
--- NOTE | 2018-10-31 19:32 | OP ---
DATE OF OPERATION: 10/31/2018 PREOPERATIVE DIAGNOSIS: Left renal stone. POSTOPERATIVE DIAGNOSIS: Left renal stone. PROCEDURE: Left extracorporeal shock wave lithotripsy. ATTENDING: Merary Hector MD ANESTHESIA: General. DESCRIPTION OF OPERATION: Patient was brought in the operating room, placed in supine position on the operating room table. Ultrasonography and fluoroscopy were performed. A 3-mm left upper pole stone was identified. Anesthesia and preoperative antibiotics were then given. Shock wave lithotripsy was performed. No complications were noted. The disposition of the patient was to the recovery room. MERARY HECTOR M.D. [id number]
== END 2018-10-31 16:09 | disposition home or self-care (01) ==
LOC: JASU-SURG 09:37
PROVIDERS: ATTEND Urology
PROC: 0TF4XZZ Fragmentation in Left Kidney Pelvis, External Approach (ICD-10-PCS; principal; 2018-10-31 18:30)
DX: N20.0 Calculus of kidney (principal)
CPT/HCPCS: 84703

== ENCOUNTER 2019-04-01 09:58 | Emergency (ER) | payer OTHER ==
[2019-04-01 10:03] VITALS: BMI 20.9
[2019-04-01] MEDS ORDERED: SODIUM CHLORIDE 0.9% 500 ML INFUS.BAG IV ONE (10:09)
--- NOTE | 2019-04-01 10:18 | PDOC ---
History of Present Illness - General Chief Complaint: Pain, Acute Stated Complaint: LEFT FLANK PAIN Time Seen by Provider: 04/01/19 10:07 - History of Present Illness Initial Comments: The pt is a 43F w/ a history of nephrolithiasis, L lithotripsy, R ureteral sent s/p removal, s/p BTL, s/p jennifer who presents for evaluation of 3 days of b/l flank pain. Her pain is achy/sharp, constant, non-radiating, associated w/ decreased PO intake. She denies dysuria, hematuria, N/V/C/D, or blood in her stool, vaginal bleeding/discharge. Notes no menses for this past month. She tried rishabh tea for her pain with some relief. 04/01/19 10:33 Past History - Past Medical History Allergies/Adverse Reactions: Allergies Allergy/AdvReac Type Severity Reaction Status Date / Time morphine AdvReac Severe Verified 04/01/19 10:03 KIWI Allergy Severe Uncoded 04/01/19 10:03 Home Medications: Ambulatory Orders Ibuprofen 600 mg PO Q8H PRN #14 tablet 04/01/19 Anemia: No Asthma: No Cancer: No Cardiac Disorders: No CVA: No COPD: No CHF: No Dementia: No Diabetes: No GI Disorders: No Disorders: No HTN: No Hypercholesterolemia: No Liver Disease: No Seizures: No Thyroid Disease: No - Surgical History Abdominal Surgery: Yes (renal stents/ then removed) Appendectomy: No Cardiac Surgery: No Cholecystectomy: Yes Lung Surgery: No Neurologic Surgery: No Orthopedic Surgery: No - Immunization History Immunization Up to Date: Yes - Suicide/Smoking/Psychosocial Hx Smoking Status: No Smoking History: Never smoked Have you smoked in the past 12 months: No Number of Cigarettes Smoked Daily: 0 Hx Alcohol Use: No Drug/Substance Use Hx: No Substance Use Type: None Hx Substance Use Treatment: No Review of Systems - Review of Systems Able to Perform ROS?: Yes Comments:: GENERAL/CONSTITUTIONAL: No fever or chills. No weakness HEAD, EYES, EARS, NOSE AND THROAT: No change in vision. No ear pain or discharge. No sore throat CARDIOVASCULAR: No chest pain or shortness of breath RESPIRATORY: Denies cough, hemoptysis GASTROINTESTINAL: No nausea, vomiting, diarrhea or constipation GENITOURINARY: No dysuria, frequency, or change in urination MUSCULOSKELETAL: No joint or muscle swelling or pain. No neck or back pain SKIN: No rash NEUROLOGIC: No headache, vertigo, loss of consciousness, or change in strength/ sensation ENDOCRINE: No increased thirst. No abnormal weight change HEMATOLOGIC/LYMPHATIC: No anemia, easy bleeding, or history of blood clots ALLERGIC/IMMUNOLOGIC: No hives or skin allergy 04/01/19 10:17 Is the patient limited [place] proficient: No *Physical Exam - Vital Signs Last Vital Signs Temp Pulse Resp BP Pulse Ox 98.3 F 80 18 95/56 L 99 04/01/19 10:01 04/01/19 10:01 04/01/19 10:01 04/01/19 10:04/01/19 10:01 - Physical Exam Comments: GENERAL: Awake, alert, and oriented to person/place/time, in no acute distress HEAD: No signs of trauma, normocephalic, atraumatic EYES: PERRLA, EOMI, sclera anicteric, conjunctiva clear ENT: Hearing grossly normal, nares patent, oropharynx clear without exudates. No uvular deviation. Moist mucosa LUNGS: No distress, speaks in full sentences, clear to auscultation bilaterally HEART: Regular rate and rhythm, normal S1 and S2, no murmurs appreciated, peripheral pulses normal and equal bilaterally ABDOMEN: Soft, b/l flank TTP, L inguinal TTP, b/l mild CVA TTP w/o rebound or guarding, normoactive bowel sounds EXTREMITIES: Normal inspection, Normal range of motion, no edema. No clubbing or cyanosis NEUROLOGICAL: Cranial nerves II through XII grossly intact. Normal speech, normal gait, no focal sensorimotor deficits SKIN: Warm, Dry 04/01/19 10:18 ED Treatment Course - LABORATORY CBC & Chemistry Diagram: 04/01/19 10:30 04/01/19 10:30 Medical Decision Making - Medical Decision Making The pt is a 43F w/ a history of nephrolithiasis, L lithotripsy, R ureteral sent s/p removal, s/p BTL, s/p jennifer who presents for evaluation of 3 days of b/l flank pain Ddx includes nephrolithiasis, UTI/pyelo, less likely SBO, colitis, pt s/p jennifer ED Course CMP, CBC, UA, UCx, Upreg IVF, Tylenol UA w/ trace blood No leukocytosis No CHANELL LFTs unremarkable No anemia Pt w/ stable right hydronephrosis Pt feels improved s/p Tylenol and IVF Plan for D/C w/ Urology and PCP f/u Discharge instructions and return precautions given Pt in agreement and verbalized understanding Dispo: home 04/01/19 13:14 *DC/Admit/Observation/Transfer Diagnosis at time of Disposition: Flank pain Hydronephrosis Qualifiers: Hydronephrosis type: unspecified Qualified Code(s): N13.30 - Unspecified hydronephrosis - Discharge Dispostion Disposition: HOME Condition at time of disposition: Improved Decision to Admit order: No - Prescriptions Prescriptions: Ibuprofen 600 mg PO Q8H PRN #14 tablet PRN Reason: Pain - Referrals Referrals: Batsheva Gomez MD [Primary Care Provider] - Antolin Elizabeth MD [Staff Physician] - - Patient Instructions Printed Discharge Instructions: DI for Flank Pain Additional Instructions: You were seen in the Emergency Department for evaluation of flank pain. Your ultrasound was negative and your labs were unremarkable. Review the handout provided at discharge and follow up with your Urologist and primary care provider. You may take Ibuprofen or Tylenol for pain. Return to the Emergency Department if you develop worsening/persistent pain, inability to tolerate food , chest pain, trouble breathing, blood in your urine or stool, worsening symptoms, or any new/concerning symptoms. - Post Discharge Activity
[2019-04-01] MEDS ORDERED: ACETAMINOPHEN 325 MG TABLET (FP) PO ONE (10:33)
[2019-04-01 10:51] LABS: BASO % 2.5 % (0-2.0); EOS % 3.4 % (0-4.5); HEMATOCRIT 33.4 % (32.4-45.2); HEMOGLOBIN 10.9 GM/dL (10.7-15.3); LYMPH % 25.2 % (8-40); MCH 29.5 pg (25.7-33.7); MCHC 32.7 g/dl (32.0-36.0); MEAN CELL VOLUME 90.3 fl (80-96); MEAN PLT VOLUME 8.7 fl (7.5-11.1); MONO % 21.5 % (3.8-10.2); NEUT % 47.4 % (42.8-82.8); RDW 17.6 % (11.6-15.6); WHITE BLOOD COUNT 6.4 K/mm3 (4.0-10.0)
[2019-04-01 10:55] LABS: EPI CELLS 2.4 /HPF (0-5/HPF); HYALINE CASTS 2 /lpf (0-8); PH,URINE 6.5 (5.0-8.0); URINE APPEARANCE CLEAR; URINE BACTERIA 173.6 /hpf (NEGATIVE); URINE BILIRUBIN NEGATIVE (NEGATIVE); URINE COLOR YELLOW; URINE GLUCOSE (UA) NEGATIVE (NEGATIVE); URINE KETONE NEGATIVE (NEGATIVE); URINE LEUK ESTERASE NEGATIVE (NEGATIVE); URINE NITRITE NEGATIVE (NEGATIVE); URINE PROTEIN NEGATIVE (NEGATIVE); URINE RBC 7 /hpf (0-4); URINE UROBILINOGEN 0.2 mg/dL (0.2-1.0); URINE WBC 1 /hpf (0-5)
[2019-04-01] MEDS ORDERED: ACETAMINOPHEN 325 MG TABLET (FP) ONE (11:00)
--- NOTE | 2019-04-01 11:00 | PDOC ---
Attending Attestation - Resident Resident Name: Torres Gupta - ED Attending Attestation I have performed the following: I have examined & evaluated the patient, The case was reviewed & discussed with the resident, I agree w/resident's findings & plan - HPI HPI: 04/01/19 10:58 43 year old female with a PMH of L sided nephrolithiasis (s/p lithotripsies), R sided ureteral stent (2/2 to closed ureter) presenting with b/l flank pain x 3 days, left > right. described as sharp/aching, constant, nonradiating. feels similar to prior kidney stones. Urgent care yesterday, no remarkable findings. No f/c, n/v/d, bloody stools, hematuria, dysuria. 1 month late on period. Allergy: Morphine Surgical:Hysterectomy, GB, Lithotripsy Social: denies toxic habits PMD: Dr. Hancock [employer] Supervisor: Dr. Elizabeth - Physicial Exam PE: 04/01/19 11:03 Agree with the resident's HPI and PE as documented in the electronic medical record. NAD, EOMI, PERRL, MMM, nl conjunctiva, anicteric; neck supple. lungs clear, RRR , abdomen soft nontender. +left CVAT. no rebound or guarding. [place] x4, no focal neuro deficits. No peripheral edema. normal color for ethnicity, WWP. 04/01/19 11:54 - Medical Decision Making 04/01/19 11:00 See HPI for details. Prior notes reviewed, including admissions, discharges and consultations. Vital signs reviewed, BP soft, 95/60, baseline per records here, mentating and well appearing otherwise. no tachy, no fever or systemic findings DDX renal colic, kidney stones, obstructed stone, UTI, pyelonephritis. Doubt obstruction or infectious colitis, as no BM or abdominal pain, passing gas and able to tolerate PO. laboratory results and imaging reviewed, basic labs and lytes wnl, LFTs normal, normal WBC ct. UA with trace blood, RBC 7; does not appear infections neg preg test. ED course -interventions: IVF, analgesia, reassess. feels improved on tylenol/toradol does not appear toxic, sx very similar to prior clinical presentations defer CT imaging due to risk of radiation/costs outweighing benefits with clinical history and findings Clinically doubt any intra-abdominal process at this time and defer further imaging. renal US Stable right-sided hydronephrosis, otherwise no acute findings On clinical reevaluation, patient has much improved declined and nsaid. Discussed This with patient this could be a passage of a small stone without overt evidence of hydronephrosis on imaging and with trace blood in the UA. Remainder of workup has been negative including normal creatinine and no evidence of infection/pyelonephritis. Patient will be discharged with urology follow-up, she has seen Dr. tee wallace, in the past and told to stay hydrated with the recent heat wave, OTC analgesia, supportive care and return precautions for worsening symptoms including pain, inability to tolerate by mouth intake, vomiting, infection/fevers. 04/01/19 11:01 04/01/19 11:55 04/01/19 11:55 04/01/19 13:14
[2019-04-01 11:13] LABS: ALBUMIN 3.8 g/dl (3.4-5.0); BILIRUBIN,TOTAL 0.4 mg/dL (0.2-1); CALCIUM 8.7 mg/dL (8.5-10.1); CREATININE 0.7 mg/dL (0.55-1.3); POTASSIUM 4.1 mmol/L (3.5-5.1); TOT PROT 7.4 g/dl (6.4-8.2)
[2019-04-01 11:31] LABS: PLATELET COUNT 345 K/MM3 (134-434)
[2019-04-01] MEDS ORDERED: KETOROLAC TROMETHAMINE 15 MG/ML VIAL IVPUSH ONE (11:53)
[2019-04-01] MEDS ORDERED: KETOROLAC TROMETHAMINE 15 MG/ML VIAL ONE (12:05)
[2019-04-01 13:07] LABS: ANISOCYTOSIS 0; HELMET CELLS 0; HOWELL-JOLLY BODIES 0; MACROCYTOSIS 0; OVALOCYTE 0; PLATELET ESTIMATE NORMAL; ROULEAU 0; SICKELED CELLS 0; TARGET CELLS 0; TEAR DROP CELLS 0; TOXIC GRANULATION 0
[2019-04-01 13:31] VITALS: BP 101/63; PULSE 68; TEMP 98
== END 2019-04-01 13:36 | disposition home or self-care (01) ==
LOC: JER 09:58
PROC: 3E0333Z Introduction of Anti-inflammatory into Peripheral Vein, Percutaneous Approach (ICD-10-PCS; principal; 2019-04-01)
PROC: 3E0337Z Introduction of Electrolytic and Water Balance Substance into Peripheral Vein, Percutaneous Approach (ICD-10-PCS; 2019-04-01)
DX: N13.30 Unspecified hydronephrosis (principal); Z87.442 Personal history of urinary calculi
CPT/HCPCS: 36415; 76775-TC; 80053; 81003; 84703; 85025; 87086; 96374; 99282-25

== ENCOUNTER 2019-10-03 07:21 | Inpatient (IN) | payer OTHER ==
--- NOTE | 2019-10-03 07:41 | PDOC ---
History of Present Illness - General Chief Complaint: Syncope/Near Syncope Stated Complaint: SYNCOPE,ABD PAIN Time Seen by Provider: 10/03/19 07:40 - History of Present Illness Initial Comments: HPI: 44yo F with PMH of nephrolithiasis (s/p lithotripsby about one year ago and ureteral stent several years ago), anemia, bilateral tubal ligation, cholecystitis presenting with R. flank pain and two syncopal episodes. Patient states this pain is similar to when she has had kidney stones in the past. Has taken awtn-ahm-wqipser medications at home with minimal relief. Last saw her urologist one month ago. Her pain is rated 10/10 and described as sharp. Patient denies urinary symptoms. This morning after getting up from the toilet, patient felt weak/dizzy/diaphoretic and next remembers waking up in the living room. She syncopized and suffered an unwitnessed fall. Her daughter who was nearby heard the noise and noted that she saw the patient on the floor having landed with her head on a pillow. EMS was notified. By the time the ambulance arrived, patient was propped with her back against the couch when she experienced another syncopal episode-- this time witnessed-- for about thirty seconds. Patient denies chest pain or shortness of breath. No fevers or chills. PCP: Dr. Gomez Urology: Dr. Elizabeth ROS: Constitutional: no fever, +diaphoresis HEENT: no throat pain, no dysphagia Cardiovascular: no chest pain, no palpitations Respiratory: no cough, no shortness of breath Gastrointestinal: +abdominal pain, +vomiting Genitourinary: +flank pain, no dysuria Musculoskeletal: no myalgia, no arthralgia Skin: no rash, no itching Neurologic: +lightheadedness, +weakness PE: General: Awake, alert, and fully oriented, in no acute distress Head: No signs of trauma Eyes: EOMI, sclera anicteric ENT: Moist mucus membranes Neck: Normal ROM, supple Lungs: Lungs clear, Normal breath sounds Cardio: Regular rhythm, S1 and S2 present Abdomen: Soft, nontender. No guarding, no rebound, no masses; pain is overlying with right flank, but no increased tenderness elicited upon palpation Extremities: Normal range of motion, Distal pulses present SKIN: Warm, Dry, normal turgor Neurologic: Cranial nerves II through XII intact. Normal speech, sensation, strength, coordination, and gait. ED Course/MDM: DDX including but not limited to nephrolithiasis, UTI/pyelonephritis, aortic dissection, vasovagal syncope, cardiogenic syncope, metabolic syncope, neurogenic syncope, postural syncope, aortic dissection, , seizure Labs, EKG CT spiral POCUS Fluids Ofirmev (patient states she has an adverse reaction to morphine) 10/03/19 07:41 POCUS renal shows right hydronephrosis CBC WBC 7.3 K/mm3 (4.0-10.0) 10/03/19 08:00 RBC 3.82 M/mm3 (3.60-5.2) 10/03/19 08:00 Hgb 11.7 GM/dL (10.7-15.3) 10/03/19 08:00 Hct 35.0 % (32.4-45.2) 10/03/19 08:00 MCV 91.4 fl (80-96) 10/03/19 08:00 MCH 30.6 pg (25.7-33.7) 10/03/19 08:00 MCHC 33.4 g/dl (32.0-36.0) 10/03/19 08:00 RDW 17.1 % (11.6-15.6) H 10/03/19 08:00 Plt Count 281 K/MM3 (134-434) 10/03/19 08:00 MPV 9.0 fl (7.5-11.1) 10/03/19 08:00 Absolute Neuts (auto) 5.8 K/mm3 (1.5-8.0) 10/03/19 08:00 Neutrophils % 79.5 % (42.8-82.8) D 10/03/19 08:00 Lymphocytes % 10.6 % (8-40) D 10/03/19 08:00 Monocytes % 9.1 % (3.8-10.2) 10/03/19 08:00 Eosinophils % 0.4 % (0-4.5) D 10/03/19 08:00 Basophils % 0.4 % (0-2.0) 10/03/19 08:00 Nucleated RBC % 0 % (0-0) 10/03/19 08:00 No leukocytosis CMP Sodium 139 mmol/L (136-145) 10/03/19 08:00 Potassium 3.7 mmol/L (3.5-5.1) 10/03/19 08:00 Chloride 108 mmol/L (98-107) H 10/03/19 08:00 Carbon Dioxide 23 mmol/L (21-32) 10/03/19 08:00 Anion Gap 7 MMOL/L (8-16) L 10/03/19 08:00 BUN 7.9 mg/dL (7-18) 10/03/19 08:00 Creatinine 0.6 mg/dL (0.55-1.3) 10/03/19 08:00 Est GFR (CKD-EPI)AfAm 126.69 10/03/19 08:00 Est GFR (CKD-EPI)NonAf 109.31 10/03/19 08:00 Random Glucose 109 mg/dL (74-106) H 10/03/19 08:00 Calcium 8.3 mg/dL (8.5-10.1) L 10/03/19 08:00 Total Bilirubin 0.3 mg/dL (0.2-1) 10/03/19 08:00 AST 30 U/L (15-37) 10/03/19 08:00 ALT 25 U/L (13-61) 10/03/19 08:00 Alkaline Phosphatase 66 U/L (45-117) 10/03/19 08:00 Troponin I < 0.02 ng/ml (0.00-0.05) 10/03/19 08:20 Total Protein 6.8 g/dl (6.4-8.2) 10/03/19 08:00 Albumin 3.4 g/dl (3.4-5.0) 10/03/19 08:00 Electrolytes unremarkable Cr normal No transaminitis Tpn undetectable EKG: rate 69, QTc 435, NSR CT as read by radiology: "EXAM#: TYPE/EXAM: RESULT: [id number] CT/SPIRAL- RENAL- STONE CT HISTORY PROVIDED: Right flank pain TECHNIQUE: Sequential axial images were obtained from the domes of the diaphragm through the symphysis pubis utilizing urinary tract calculi protocol. The lung bases are clear. There is no evidence of calcifications within the kidneys, ureters or urinary bladder suspicious for urinary tract calculi. There is a mild degree of right-sided hydronephrosis with dilatation of the proximal two thirds of the right ureter. The distal third of the ureter could not be identified and does not appear to be dilated. The etiology for the mild hydronephrosis is uncertain. There does not appear to be an obstructing calculus or mass lesion. A follow-up contrast- enhanced study with delayed imaging may be helpful. There is no evidence of left -sided hydronephrosis or obstructive uropathy. No significant abnormalities of the liver, spleen, pancreas, or adrenal glands are identified. There are a few tiny hypodensities within the liver that most likely represent cysts, however, they are too small to accurately characterize. The gallbladder has been removed. There is no evidence of intra-abdominal, retroperitoneal or pelvic mass lesions, fluid collections or lymphadenopathy. The uterus is markedly enlarged consistent with leiomyomata. There is a small amount of free fluid within the cul-de-sac. There is no evidence of acute bony pathology. IMPRESSION : 1. No evidence of urinary tract calculi. 2. Mild right-sided hydronephrosis and hydroureter without obvious obstruction. Clinical correlation and follow-up recommended. 3. No definite evidence of acute pathology within the abdomen or pelvis. Please see above discussion. Reported By: Steve Tapia MD 10/03/19 1002 " 10/03/19 10:[address] Gomez, Awaiting callback from Britney CHAN 10/03/19 10:34 Received call back from call service; Dr. Vahid Cody is admitting Dr. Gomez's patients today. He can be reached at [phone], 10/03/19 11:[address] Cody in the ED who accepted patient for admission under himself 10/03/19 11:47 Past History - Past Medical History Allergies/Adverse Reactions: Allergies Allergy/AdvReac Type Severity Reaction Status Date / Time morphine AdvReac Severe Verified 10/03/19 08:29 KIWI Allergy Severe Uncoded 10/03/19 08:29 Home Medications: Ambulatory Orders Ferrous Sulfate [Feosol] 325 mg PO DAILY 10/03/19 Anemia: No Asthma: No Cancer: No Cardiac Disorders: No CVA: No COPD: No CHF: No Dementia: No Diabetes: No GI Disorders: No Disorders: No HTN: No Hypercholesterolemia: No Liver Disease: No Seizures: No Thyroid Disease: No - Surgical History Abdominal Surgery: Yes (renal stents/ then removed) Appendectomy: No Cardiac Surgery: No Cholecystectomy: Yes Lung Surgery: No Neurologic Surgery: No Orthopedic Surgery: No - Immunization History Immunization Up to Date: Yes - Psycho Social/Smoking Cessation Hx Smoking Status: No Smoking History: Never smoked Have you smoked in the past 12 months: No Number of Cigarettes Smoked Daily: 0 Hx Alcohol Use: No Drug/Substance Use Hx: No Substance Use Type: None Hx Substance Use Treatment: No ED Treatment Course - LABORATORY CBC & Chemistry Diagram: 10/03/19 08:00 10/03/19 08:00 Discharge - Discharge Information Problems reviewed: Yes Clinical Impression/Diagnosis: Syncope and collapse, Flank pain Condition: Guarded - Admission Yes - Follow up/Referral - Patient Discharge Instructions - Post Discharge Activity
[2019-10-03] MEDS ORDERED: ACETAMINOPHEN 1000 MG/100 ML VIAL (NON FORMULARY) IVPB ONE (08:12)
[2019-10-03] MEDS ORDERED: ACETAMINOPHEN INJECTION 100 ML IVPB ONE (08:15)
--- NOTE | 2019-10-03 08:15 | PDOC ---
Attending Attestation - Resident Resident Name: Natividad Alfonso - ED Attending Attestation I have performed the following: I have examined & evaluated the patient, The case was reviewed & discussed with the resident, I agree w/resident's findings & plan, Exceptions are as noted - HPI HPI: 10/03/19 09:18 44yo female with 2 syncopal episodes this AM. 1 episode of bilious vomiting/ scant blood per the daughter. Pt states b/l flank pain which is chronic- hx of kidney stones and hx of chronic hydro on the R. No f/c. States flu like symptoms yesterday and didn't eat or drink all day. Pt states worsening flank pain overnight. Per the daughter- 2 witnessed syncopal episodes- landed on pillows. Pt states constipated and took a laxative, states bm was black this AM , but also on iron tablets. Denies cp/sob. Denies f.c. Denies dysuria. Pt denies sherwood. No blurred vision. NO paresthesias. - Physicial Exam PE: 10/03/19 09:51 Gen: aaox3, nad heent: PERRl, EOMI, dry mm neck: supple heart: +s1s2 reg lungs: cta b/l abd: soft, b/l R>L cva ttp, suprapubic ttp ext: no c/c/e neuro: cn ii-xii grossly intact, no focal deficits, moves all extremities - Medical Decision Making 10/03/19 09:52 a/p: 44yo female with n/v and 2 syncopal episodes -no head trauma -b/l flank pain that is worse than normal -will send labs, ekg, ct abd/pelvis -bedside ultrasound show R mod hydro -will need obs for syncope x 2 -rectal per the resident Heart Score/ECG Review - ECG Intrepretation Comment:: 10/03/19 09:54 sinus at 76, nl axis, nl interval, no acute st/t wave findings 10/03/19 09:54 repeat ekg: sinus at 69, nl axis, nl interval, no acute st/t wave findings
[2019-10-03 08:44] LABS: BASO % 0.4 % (0-2.0); EOS % 0.4 % (0-4.5); HEMOGLOBIN 11.7 GM/dL (10.7-15.3); LYMPH % 10.6 % (8-40); MCH 30.6 pg (25.7-33.7); MCHC 33.4 g/dl (32.0-36.0); MEAN CELL VOLUME 91.4 fl (80-96); MONO % 9.1 % (3.8-10.2); NEUT % 79.5 % (42.8-82.8); PLATELET COUNT 281 K/MM3 (134-434); RBC 3.82 M/mm3 (3.60-5.2); RDW 17.1 % (11.6-15.6); WHITE BLOOD COUNT 7.3 K/mm3 (4.0-10.0)
[2019-10-03 09:11] LABS: ALBUMIN 3.4 g/dl (3.4-5.0); BILIRUBIN,TOTAL 0.3 mg/dL (0.2-1); BLOOD UREA NITROGEN 7.9 mg/dL (7-18); CALCIUM 8.3 mg/dL (8.5-10.1); CREATININE 0.6 mg/dL (0.55-1.3); POTASSIUM 3.7 mmol/L (3.5-5.1); TOT PROT 6.8 g/dl (6.4-8.2)
[2019-10-03 09:30] LABS: EPI CELLS 1.9 /HPF (0-5/HPF); HYALINE CASTS 6 /lpf (0-8); URINE APPEARANCE CLEAR; URINE BACTERIA 35.6 /hpf (NEGATIVE); URINE BILIRUBIN NEGATIVE (NEGATIVE); URINE COLOR YELLOW; URINE GLUCOSE (UA) NEGATIVE (NEGATIVE); URINE KETONE NEGATIVE (NEGATIVE); URINE LEUK ESTERASE NEGATIVE (NEGATIVE); URINE NITRITE NEGATIVE (NEGATIVE); URINE PROTEIN NEGATIVE (NEGATIVE); URINE RBC 2 /hpf (0-4); URINE UROBILINOGEN 0.2 mg/dL (0.2-1.0); URINE WBC 2 /hpf (0-5)
[2019-10-03 09:34] LABS: INR 1.1 (0.83-1.09)
--- NOTE | 2019-10-03 10:30 | EKG ---
Test Reason : Blood Pressure : / mmHG Vent. Rate : 069 BPM Atrial Rate : 069 BPM P-R Int : 166 ms QRS Dur : 076 ms QT Int : 406 ms P-R-T Axes : 043 006 026 degrees QTc Int : 435 ms NORMAL SINUS RHYTHM NORMAL ECG WHEN COMPARED WITH ECG OF 03-OCT-2019 07:29, NO SIGNIFICANT CHANGE WAS FOUND Confirmed by MD Barreto Edward ([id number]) on 10/03/2019 10:29:51 AM Referred By: Confirmed By:Arik Barreto MD
--- NOTE | 2019-10-03 10:30 | EKG ---
Test Reason : Blood Pressure : / mmHG Vent. Rate : 076 BPM Atrial Rate : 076 BPM P-R Int : 168 ms QRS Dur : 076 ms QT Int : 382 ms P-R-T Axes : 056 007 038 degrees QTc Int : 429 ms NORMAL SINUS RHYTHM NORMAL ECG WHEN COMPARED WITH ECG OF 09-APR-2018 23:38, NO SIGNIFICANT CHANGE WAS FOUND Confirmed by MD Barreto Edward ([id number]) on 10/03/2019 10:29:26 AM Referred By: Confirmed By:Arik Barreto MD
[2019-10-03] MEDS ORDERED: KETOROLAC TROMETHAMINE 30 MG/1 ML VIAL IVPUSH ONE (10:54)
[2019-10-03] MEDS ORDERED: KETOROLAC TROMETHAMINE 30 MG/1 ML VIAL ONE (11:02)
--- NOTE | 2019-10-03 12:16 | HP ---
Admitting History and Physical - Admission Chief Complaint: Acute syncope preceded by dizziness, nausea, and cold sweat. History of Present Illness: This 44 yr old female with history of nephrolithiasis, status post tubal ligation, lithotripsy, mild right sided hydronephrosis, and status post cholecystectomy admitted with acute syncope and collapse preceded by an acute severe bilateral lower abdominal pain, nausea, cold sweat, and dizziness having occurred twice this morning. 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 Cardiovascular: No: AFIB, Aneurysm, Aortic Insufficiency, Aortic Stenosis, CAD, CHF, Deep Vein Thrombosis, HTN, Hyperlipdemia, NV, Mitral Insufficiency, Mitral Stenosis, Murmur, Pulmonary Hypertension, Other Pulmonary: No: Asthma, Bronchitis, Cancer, COPD, O2 Dependent, Pneumonia, Previously Intubated, Pulmonary Embolus, Pulmonary Fibrosis, Sleep Apnea, Other Gastrointestinal: Yes: Constipation (On Ferrous sulfate 325mg po od) Hepatobiliary: Yes: Other (personal history of cholecystectomy) Renal/: Yes: Hematuria (microscopic), Renal Calculi Reproductive: Yes: Fibroids ...LMP: 10/14/18 Heme/Onc: No: Anemia, B12 Deficiency, Bleeding Disorder, Cancer, Current Chemotherapy, Current Radiation Therapy, Hemochromatosis, Hypercoaguable State, Myeloproliferative Synd, Sickle Cell Disease, Sickle Cell Trait, Thrombocytopenia, Other Infectious Disease: No: AIDS, C-Diff, Herpes Zoster, HIV, MRSA, STD's, Tuberculosis, VREF, Other Psych: No: Addictions, Anxiety, Bipolar, Depression, Panic, Psychosis, Schizophrenia, Other Musculoskeletal: No: Bursitis, Chronic low back pain, Hemiparesis, Hemiplegia, Osteoarthritis, Paraplegia, Other Rheumatology: No: Fibromyalgia, Gout, Lupus, Rheumatoid Arthritis, Sarcoidosis, Vasculitis, Other ENT: No: Allergic Rhinitis, Sinusitis, Other Endocrine: No: Librado's Disease, [place]'s Disease, Diabetes Insipidus, Diabetes Mellitus, Hyperparathyroidism, Hyperthyroidism, Hypothyroidism, Osteopenia, SIADH, Other Dermatology: No: Basal Cell, Cellulitis, Eczema, Melanoma, Psoriasis, Squamous Cell, Other - Past Surgical History Past Surgical History: Yes: , Tubal Ligation, Cholecystectomy - Smoking History Smoking history: Never smoked Have you smoked in the past 12 months: No Aproximately how many cigarettes per day: 0 - Alcohol/Substance Use Hx Alcohol Use: No History of Substance Use: reports: None - Social History ADL: Independent Home Medications - Allergies Allergies/Adverse Reactions: Allergies Allergy/AdvReac Type Severity Reaction Status Date / Time morphine AdvReac Severe Verified 10/03/19 08:29 KIWI Allergy Severe Uncoded 10/03/19 08:29 - Home Medications Home Medications: Ambulatory Orders NK [No Known Home Medication] 10/03/19 Family Medical History Family Hx Renal Disease: Mother (nephrolithiasis) Review of Systems - Review of Systems Constitutional: reports: Diaphoresis (preceded syncope), Weakness (preceded syncope) Eyes: reports: No Symptoms HENT: reports: No Symptoms Neck: reports: No Symptoms Cardiovascular: reports: No Symptoms Respiratory: reports: No Symptoms Gastrointestinal: reports: Abdominal Pain (lower bilateral pain), Constipation, Nausea Genitourinary: reports: Flank Pain, Hematuria, Urgency Breasts: reports: No Symptoms Reported Musculoskeletal: reports: No Symptoms Integumentary: reports: No Symptoms Neurological: reports: Syncope (preceded by acute severe lower abdominal pain, nausea, dizziness, and cold sweat) Hematology/Lymphatic: reports: No Symptoms Psychiatric: reports: No Symptoms Physical Examination Vital Signs: Vital Signs Temperature 98.8 F 10/03/19 07:25 Pulse Rate 73 10/03/19 07:25 Respiratory Rate 11 10/03/19 07:25 Blood Pressure 105/65 10/03/19 07:25 O2 Sat by Pulse Oximetry (%) 99 10/03/19 07:46 Constitutional: Yes: Well Nourished, Moderate Distress Eyes: Yes: Conjunctiva Clear, EOM Intact HENT: Yes: Atraumatic, Normocephalic Neck: Yes: Supple, Trachea Midline Cardiovascular: Yes: Regular Rate and Rhythm Respiratory: Yes: Regular, CTA Bilaterally Gastrointestinal: Yes: Normal Bowel Sounds, Soft, Tenderness (bilateral lower part of abdomen) ...Rectal Exam: Yes: Deferred Renal/: Yes: CVA Tenderness - Left, CVA Tenderness - Right, Hematuria ( microscopic) Breast(s): Yes: WNL Musculoskeletal: Yes: WNL Extremities: Yes: WNL Edema: No Peripheral Pulses WNL: Yes Peripheral Pulses: Left Radial: 3+, Right Radial: 3+, Left Doralis Pedis: 3+, Right Dorsalis Pedis: 3+, Left Femoral: 3+, Right Femoral: 3+ Integumentary: Yes: WNL Neurological: Yes: WNL ...Motor Strength: WNL Psychiatric: Yes: WNL, Alert, Oriented Labs: CBC, BMP 10/03/19 08:00 10/03/19 08:00 Imaging - Results Other: Report Reviewed (Lab data reviewed) Problem List - Problems (1) Flank pain Code(s): R10.9 - UNSPECIFIED ABDOMINAL PAIN (2) Syncope and collapse Code(s): R55 - SYNCOPE AND COLLAPSE (3) Abdominal pain Code(s): R10.9 - UNSPECIFIED ABDOMINAL PAIN (4) Constipation Code(s): K59.00 - CONSTIPATION, UNSPECIFIED Qualifiers: Constipation type: slow transit constipation Qualified Code(s): K59.01 - Slow transit constipation (5) Hydronephrosis Code(s): N13.30 - UNSPECIFIED HYDRONEPHROSIS Qualifiers: Hydronephrosis type: unspecified Qualified Code(s): N13.30 - Unspecified hydronephrosis Assessment/Plan Assessment/plan: Acute syncope and collapse, acute bilateral lower abdominal pain, mild right sided hydronephrosis; Oral Tylenol for analgesia, IV fluids.
[2019-10-03] MEDS ORDERED: ACETAMINOPHEN 500 MG TABLET (FP) PO PRN (12:33)
[2019-10-03] MEDS ORDERED: POLYETHYLENE GLYCOL 3350 119 GM BTL PO ONE (12:33)
[2019-10-03] MEDS ORDERED: FERROUS SO4 325 MG TABLET (FP) ONE (13:13)
[2019-10-03] MEDS: D5-1/2NS+20 MEQ KCL - 20 MEQ/1,000 ML INFUS.BAG IV SCH ×2 (13:21→18:25)
[2019-10-03] MEDS ORDERED: ONDANSETRON 4 MG/2 ML VIAL IVPUSH ONE (14:35)
[2019-10-03] MEDS ORDERED: ONDANSETRON 4 MG/2 ML VIAL ONE (14:36)
[2019-10-03] MEDS ORDERED: FAMOTIDINE 20 MG/50 ML IVPB 20 MG/50 ML MG IVPB ONE (14:45)
[2019-10-04] MEDS ORDERED: ONDANSETRON 4 MG TABLET PO PRN (01:01)
[2019-10-04 07:02] LABS: BASO % 0.7 % (0-2.0); EOS % 1.4 % (0-4.5); HEMATOCRIT 31.2 % (32.4-45.2); HEMOGLOBIN 10.4 GM/dL (10.7-15.3); LYMPH % 16.5 % (8-40); MCH 30.5 pg (25.7-33.7); MCHC 33.3 g/dl (32.0-36.0); MEAN CELL VOLUME 91.7 fl (80-96); MONO % 11.7 % (3.8-10.2); NEUT % 69.7 % (42.8-82.8); PLATELET COUNT 241 K/MM3 (134-434); RBC 3.41 M/mm3 (3.60-5.2); RDW 17.5 % (11.6-15.6); WHITE BLOOD COUNT 4.8 K/mm3 (4.0-10.0)
[2019-10-04 07:37] LABS: ALBUMIN 2.8 g/dl (3.4-5.0); BILIRUBIN,TOTAL 0.2 mg/dL (0.2-1); BLOOD UREA NITROGEN 7.4 mg/dL (7-18); CALCIUM 7.9 mg/dL (8.5-10.1); CREATININE 0.5 mg/dL (0.55-1.3); TOT PROT 5.7 g/dl (6.4-8.2)
[2019-10-04] MEDS: FERROUS SO4 325 MG TABLET (FP) PO SCH (10:01)
--- NOTE | 2019-10-04 14:36 | PN ---
Progress Note, Physician Chief Complaint: Patient seen and examined at the bedside in ICU, feeling much better, feeling stronger and no longer dizzy, diaphoretic or weak. History of Present Illness: This 44 yr old female with hx of nephrolithiasis, status post tubal ligation, status post lithotripsy, and mild right sided hydronephrosis admitted via ER with acute syncope and collapse, acute right sided flank pain, acute periumbilical pain, acute nausea, and acute dehydration. - Current Medication List Current Medications: Active Medications Acetaminophen (Tylenol -) 1,000 mg PO Q8H PRN PRN Reason: MODERATE PAIN Ferrous Sulfate (Feosol -) 325 mg PO DAILY [facility] Last Admin: 10/04/19 10:01 Dose: 325 mg Potassium Chloride/Dextrose/Sod Cl (D5-1/2ns+20 Meq Kcl -) 20 meq in 1,000 mls @ 125 mls/hr IV ASDIR [facility] Last Admin: 10/03/19 18:25 Dose: 125 mls/hr Ondansetron HCl (Zofran -) 4 mg PO Q8H PRN PRN Reason: NAUSEA - Objective Vital Signs: Vital Signs Temperature 98 F 10/04/19 12:00 Pulse Rate 76 10/04/19 12:00 Respiratory Rate 18 10/04/19 12:00 Blood Pressure 96/61 10/04/19 12:00 O2 Sat by Pulse Oximetry (%) 98 10/03/19 21:00 Constitutional: Yes: Well Nourished, Mild Distress Eyes: Yes: Conjunctiva Clear, EOM Intact HENT: Yes: Atraumatic, Normocephalic Neck: Yes: Supple, Trachea Midline Cardiovascular: Yes: Regular Rate and Rhythm Respiratory: Yes: Regular, CTA Bilaterally Gastrointestinal: Yes: Normal Bowel Sounds, Soft, Tenderness (mild right flank tenderness) ...Rectal Exam: Yes: Deferred Genitourinary: Yes: WNL, CVA Tenderness - Right (mild) Breast(s): Yes: WNL Musculoskeletal: Yes: WNL Extremities: Yes: WNL Edema: No Peripheral Pulses WNL: Yes Peripheral Pulses: Left Radial: 3+, Right Radial: 3+, Left Doralis Pedis: 3+, Right Dorsalis Pedis: 3+, Left Femoral: 3+, Right Femoral: 3+ Integumentary: Yes: WNL Neurological: Yes: Alert, Oriented ...Motor Strength: WNL Psychiatric: Yes: Alert, Oriented Labs: CBC, BMP 10/04/19 05:35 10/04/19 05:35 INR, PTT INR 1.10 (0.83-1.09) H 10/03/19 08:00 - ....Imaging Other: Report Reviewed (Lab data reviewed) Problem List - Problems (1) Flank pain Code(s): R10.9 - UNSPECIFIED ABDOMINAL PAIN (2) Syncope and collapse Code(s): R55 - SYNCOPE AND COLLAPSE (3) Abdominal pain Code(s): R10.9 - UNSPECIFIED ABDOMINAL PAIN (4) Constipation Code(s): K59.00 - CONSTIPATION, UNSPECIFIED Qualifiers: Constipation type: slow transit constipation Qualified Code(s): K59.01 - Slow transit constipation (5) Hydronephrosis Code(s): N13.30 - UNSPECIFIED HYDRONEPHROSIS Qualifiers: Hydronephrosis type: unspecified Qualified Code(s): N13.30 - Unspecified hydronephrosis (6) Transaminasemia Code(s): R74.0 - NONSPEC ELEV OF LEVELS OF TRANSAMNS & LACTIC ACID DEHYDRGNSE Assessment/Plan Assessment/plan: acute right sided renal colic, acute syncope and collapse, acute dehydration, acute gastritis, acute transaminasemia mild right sided hydronephrosis; IV fluids, oral Famotidine, oral ferrous sulfate, ambulation.
[2019-10-04] MEDS: D5-1/2NS+20 MEQ KCL - 20 MEQ/1,000 ML INFUS.BAG IV SCH (16:05)
[2019-10-04] MEDS: FAMOTIDINE 20 MG TABLET PO SCH (18:56)
[2019-10-04] MEDS ORDERED: TAMSULOSIN HCL 0.4 MG CAP PO ONE (21:16)
[2019-10-04] MEDS ORDERED: INSULIN (NOVOLOG) ASPART 100 UNITS/ML 10ML VIAL ONE (21:57)
[2019-10-04] MEDS ORDERED: BISACODYL 10 MG SUPP.RECT RC ONE (22:15)
--- NOTE | 2019-10-04 22:55 | CONS ---
DATE OF CONSULTATION: DATE OF DICTATION: 10/04/2019 HISTORY OF PRESENT ILLNESS: The patient is a 44-year-old female admitted via the emergency room with acute syncope which was preceded by severe bilateral lower abdominal pain, nausea, vomiting, cold sweats as well as vertigo. It occurred twice this morning. The patient came to the emergency room. She does have history of nephrolithiasis, and she is status post nephrolithotripsy. She also had history of right kidney stones. She denies any chest pain or shortness of breath. She is status post bilateral tubal ligation as well as a cholecystectomy in the past. In the emergency room, a CAT scan of the abdomen and pelvis was performed. This revealed right-sided hydronephrosis. There was also dilated proximal 2/3 of the ureter. The distal 1/3 of the ureter was unable to be visualized. There was no evidence of an obstructing stone or mass lesion in the right side. The left side was normal. LABORATORY DATA: The patient's lab data revealed a BUN and creatinine of 7.9 over 0.6. White count is 4.1, hemoglobin and hematocrit is 10.4 over 31.2, platelets were 241. The urine revealed 1+ blood, negative nitrates. PT, INR was 13 over 1.1, respectively. The patient continues to complain of right sided abdominal pain. She is no longer nauseous at present. Does have some frequency. Abdomen soft. There is some right CVA tenderness. No organomegaly is palpated. IMPRESSION: At present is right hydronephrosis, history of nephrolithiasis, possible spontaneous passage of stone. Will recommend straining all urine, repeating renal sonogram in a.m., increasing p.o. fluids. Will follow with you. Flavio [id number]
[2019-10-05 06:08] LABS: BASO % 0.9 % (0-2.0); EOS % 4.5 % (0-4.5); HEMATOCRIT 31.2 % (32.4-45.2); HEMOGLOBIN 10.5 GM/dL (10.7-15.3); LYMPH % 36.7 % (8-40); MCH 30.4 pg (25.7-33.7); MCHC 33.5 g/dl (32.0-36.0); MEAN CELL VOLUME 90.7 fl (80-96); MEAN PLT VOLUME 8.9 fl (7.5-11.1); MONO % 23.6 % (3.8-10.2); NEUT % 34.3 % (42.8-82.8); PLATELET COUNT 261 K/MM3 (134-434); RBC 3.44 M/mm3 (3.60-5.2); RDW 17.1 % (11.6-15.6); WHITE BLOOD COUNT 3.6 K/mm3 (4.0-10.0)
[2019-10-05 06:38] LABS: ALBUMIN 2.9 g/dl (3.4-5.0); ALK PHOS 80 U/L (45-117); ANION GAP 7 MMOL/L (8-16); BILIRUBIN,TOTAL < 0.1 mg/dL (0.2-1); BLOOD UREA NITROGEN 4.4 mg/dL (7-18); CHLORIDE 108 mmol/L (98-107); CO2 26 mmol/L (21-32); CREATININE 0.6 mg/dL (0.55-1.3); GLUCOSE,RANDOM 105 mg/dL (74-106); POTASSIUM 3.9 mmol/L (3.5-5.1); SGOT/AST 77 U/L (15-37); SGPT/ALT 173 U/L (13-61); SODIUM 140 mmol/L (136-145); TOT PROT 5.8 g/dl (6.4-8.2)
[2019-10-05] MEDS: D5-NS + 20 MEQ KCL - 20 MEQ/1,000 ML INFUS.BAG IV SCH (09:50)
[2019-10-05] MEDS: FERROUS SO4 325 MG TABLET (FP) PO SCH (09:54)
[2019-10-05] MEDS: FAMOTIDINE 20 MG TABLET PO SCH (09:54)
[2019-10-05 11:09] LABS: ANISOCYTOSIS 0; MACROCYTOSIS 0; PLATELET ESTIMATE NORMAL
--- NOTE | 2019-10-05 17:48 | PN ---
Progress Note, Physician Chief Complaint: Patient examined at the bedside in ICU. Feeling stronger. Denies to nausea, vomiting, dizziness, cold sweat. Still remains hypotensive. History of Present Illness: This 44 yr old female with history of nephrolithiasis, tubal ligation, lithotripsy, and mild right sided hydronephrosis admitted via ER with acute syncope and collapse with unwitnessed concussion, acutely severe right flank pain, acute periumbilical pain, acute nausea, acute diaphoresis, acute dizziness and acute dehydration. - Current Medication List Current Medications: Active Medications Famotidine (Pepcid -) 20 mg PO DAILY [facility] Last Admin: 10/05/19 09:54 Dose: 20 mg Ferrous Sulfate (Feosol -) 325 mg PO DAILY [facility] Last Admin: 10/05/19 09:54 Dose: 325 mg Dextrose/Sodium Chloride (Dextrose 5%-Normal Saline+20 Meq Kcl -) 20 meq in 1, 000 mls @ 100 mls/hr IV ASDIR [facility] Last Admin: 10/05/19 09:50 Dose: 100 mls/hr Ondansetron HCl (Zofran -) 4 mg PO Q8H PRN PRN Reason: NAUSEA - Objective Vital Signs: Vital Signs Temperature 98.4 F 10/05/19 08:53 Pulse Rate 72 10/05/19 14:00 Respiratory Rate 17 10/05/19 14:00 Blood Pressure 90/63 10/05/19 14:00 O2 Sat by Pulse Oximetry (%) 97 10/05/19 08:51 Constitutional: Yes: Well Nourished, No Distress, Calm Eyes: Yes: Conjunctiva Clear, EOM Intact HENT: Yes: Atraumatic, Normocephalic Neck: Yes: Supple, Trachea Midline Cardiovascular: Yes: Regular Rate and Rhythm Respiratory: Yes: Regular, CTA Bilaterally Gastrointestinal: Yes: Normal Bowel Sounds, Soft ...Rectal Exam: Yes: Deferred Genitourinary: Yes: CVA Tenderness - Right (Minimal) Breast(s): Yes: WNL Musculoskeletal: Yes: WNL Extremities: Yes: WNL Edema: No Peripheral Pulses WNL: Yes Peripheral Pulses: Left Radial: 3+, Right Radial: 3+, Left Doralis Pedis: 3+, Right Dorsalis Pedis: 3+, Left Femoral: 3+, Right Femoral: 3+ Integumentary: Yes: WNL Neurological: Yes: Alert, Oriented ...Motor Strength: WNL Psychiatric: Yes: Alert, Oriented Labs: CBC, BMP 10/05/19 05:20 10/05/19 05:20 INR, PTT INR 1.10 (0.83-1.09) H 10/03/19 08:00 - ....Imaging Other: Report Reviewed (Lab data reviewed. Urology consult read and appreciated. ) Problem List - Problems (1) Flank pain Code(s): R10.9 - UNSPECIFIED ABDOMINAL PAIN (2) Syncope and collapse Code(s): R55 - SYNCOPE AND COLLAPSE (3) Abdominal pain Code(s): R10.9 - UNSPECIFIED ABDOMINAL PAIN (4) Constipation Code(s): K59.00 - CONSTIPATION, UNSPECIFIED Qualifiers: Constipation type: slow transit constipation Qualified Code(s): K59.01 - Slow transit constipation (5) Hydronephrosis Code(s): N13.30 - UNSPECIFIED HYDRONEPHROSIS Qualifiers: Hydronephrosis type: unspecified Qualified Code(s): N13.30 - Unspecified hydronephrosis (6) Transaminasemia Code(s): R74.0 - NONSPEC ELEV OF LEVELS OF TRANSAMNS & LACTIC ACID DEHYDRGNSE (7) Hypoproteinemia Code(s): E77.8 - OTHER DISORDERS OF GLYCOPROTEIN METABOLISM (8) Hypoalbuminemia Code(s): E88.09 - OTH DISORDERS OF PLASMA-PROTEIN METABOLISM, NEC (9) Renal colic on right side Code(s): N23 - UNSPECIFIED RENAL COLIC (10) Acute dehydration Code(s): E86.0 - DEHYDRATION (11) Orthostatic hypotension Code(s): I95.1 - ORTHOSTATIC HYPOTENSION Assessment/Plan Assessment/plan: Acute syncope and collapse, acute dehydration, acute orthostatic hypotension, acute right flank pain, acute periumbilical pain, acute transaminasemia (gradually resolving), acute renal colic; IV fluids, Oral Tylenol prn for body pain (menstrual period), delinquency prevention social worker request, discharge planning.
[2019-10-05] MEDS ORDERED: ACETAMINOPHEN 500 MG TABLET (FP) PO PRN (17:50)
[2019-10-05 18:37] VITALS: BMI 20.9
--- NOTE | 2019-10-05 20:00 | PN ---
Progress Note (short form) - Note Progress Note: UROLOGY NOTE: 44 y/o F w/ right flank pain, colicky in naturePt w/ h/o nephroithioasis in past. S/p right laser lithotripsy. Presenting to ER with acute onset of right flank pain, n/v. CTAP reveals R hydro, U/S reveals R hydro as well as hydroureter. Will take to OR in am for cysto right retrograde pyelogram possible right ureteroscopic laser lithotripsy. Will keep npo after midnight.
[2019-10-06 06:48] LABS: BASO % 0.6 % (0-2.0); EOS % 4.6 % (0-4.5); HEMATOCRIT 30.9 % (32.4-45.2); HEMOGLOBIN 10.3 GM/dL (10.7-15.3); LYMPH % 34.2 % (8-40); MCH 30.5 pg (25.7-33.7); MCHC 33.3 g/dl (32.0-36.0); MEAN CELL VOLUME 91.7 fl (80-96); MEAN PLT VOLUME 9.2 fl (7.5-11.1); MONO % 22.6 % (3.8-10.2); PLATELET COUNT 264 K/MM3 (134-434); RBC 3.37 M/mm3 (3.60-5.2); WHITE BLOOD COUNT 5.1 K/mm3 (4.0-10.0)
[2019-10-06 07:13] LABS: ALBUMIN 2.8 g/dl (3.4-5.0); BILIRUBIN,TOTAL 0.3 mg/dL (0.2-1); BLOOD UREA NITROGEN 8.6 mg/dL (7-18); CALCIUM 8.3 mg/dL (8.5-10.1); CREATININE 0.6 mg/dL (0.55-1.3); POTASSIUM 4.2 mmol/L (3.5-5.1); TOT PROT 5.8 g/dl (6.4-8.2)
[2019-10-06] MEDS: D5-NS + 20 MEQ KCL - 20 MEQ/1,000 ML INFUS.BAG IV SCH ×3 (09:10→21:57)
[2019-10-06] MEDS: FAMOTIDINE 20 MG TABLET PO SCH (09:10)
[2019-10-06] MEDS: FERROUS SO4 325 MG TABLET (FP) PO SCH (09:10)
[2019-10-06 12:32] LABS: ANISOCYTOSIS 0; MACROCYTOSIS 0; PLATELET ESTIMATE NORMAL
[2019-10-06] MEDS ORDERED: MIDAZOLAM HCL 2 MG/2 ML SINGLE DOSE VIAL ONE (15:04)
[2019-10-06] MEDS ORDERED: PROPOFOL 20 ML ONE (15:04)
[2019-10-06] MEDS ORDERED: ceFAZolin SODIUM 1 GM VIAL ONE (15:04)
[2019-10-06] MEDS ORDERED: LIDOCAINE HCL/PF 2% SDV 5ML VIAL ONE (15:04)
[2019-10-06] MEDS ORDERED: DEXAMETHASONE SOD PHOSPHATE 4 MG/1 ML VIAL ONE (15:04)
[2019-10-06] MEDS ORDERED: ceFAZolin SODIUM 1 GM VIAL IVPB ONE (15:20)
--- NOTE | 2019-10-06 15:38 | HP ---
DATE OF ADMISSION: 10/03/2019 DATE OF DICTATION: 10/06/2019 HISTORY OF PRESENT ILLNESS: The patient is a 44-year-old female admitted to the hospital on October 05, 2019, with nausea, vomiting and acute pelvic pain causing syncope. A CT scan of the abdomen in the emergency room revealed a right hydroureteronephrosis down to the lower two-thirds of the ureter. The distal ureter was unable to be visualized. The patient underwent an ultrasound of his abdomen and pelvis. Twenty-four hours later this again revealed moderate right hydronephrosis with some post void residual. The bladder revealed a preload volume of 172. The post void volume was 26. The ultrasound stated that a distal obstruction cannot be excluded. The patient's urinalysis revealed positive blood, negative nitrites. Her BUN is 8.6 and creatinine is 0.6. Random glucose is 87. PT/INR is 13/1.1 respectively. CBC this morning revealed a white count of 5.1, hemoglobin of 10.3, hematocrit 30.9, platelets were 264. The patient continues to have right flank pain. She also had some dysuria and frequency. PHYSICAL EXAMINATION: General: Physical exam revealed a well-developed adult female. Abdomen: Her abdomen is soft. There was tenderness in the left flank. There was also tenderness in the left lower quadrant. Patient is presently menstruating. Vitals: Her vital signs are stable with a T maximum of 98.4, a blood pressure of 98/64, a pulse of 76 and respiration of 18. ALLERGIES: She denies any allergies. PLAN: Patient will undergo a cystoscopy, right retrograde pyelogram, possible right ureteroscopy with laser lithotripsy. This was explained to the patient and she agrees. Flavio [id number]
--- NOTE | 2019-10-06 15:40 | PN ---
Progress Note, Physician Chief Complaint: Patient examined at the bedside in ICU. Undergone cystoscopy and right ureteral stent placement. History of Present Illness: This 44 yr old female with hx of nephrolithiasis, status post right ureteral stent placement and removal, tubal ligation, lithotripsy, and mild right sided hydronephrosis and hydroureter, admitted via ER with acute syncope and collapse preceded by acute dehydration, nausea, dizziness and diaphoresis, unwitnessed concussion with LOC, acute right flank pain, acute periumbilical pain, and acute orthostatic hypotension. - Current Medication List Current Medications: Active Medications Acetaminophen (Tylenol -) 500 mg PO Q6H PRN PRN Reason: MODERATE PAIN 4-6 Last Admin: 10/05/19 20:03 Dose: 500 mg Famotidine (Pepcid -) 20 mg PO DAILY [facility] Last Admin: 10/06/19 09:10 Dose: Not Given Ferrous Sulfate (Feosol -) 325 mg PO DAILY [facility] Last Admin: 10/06/19 09:10 Dose: Not Given Dextrose/Sodium Chloride (Dextrose 5%-Normal Saline+20 Meq Kcl -) 20 meq in 1, 000 mls @ 100 mls/hr IV ASDIR [facility] Last Admin: 10/06/19 09:10 Dose: 100 mls/hr Ondansetron HCl (Zofran -) 4 mg PO Q8H PRN PRN Reason: NAUSEA - Objective Vital Signs: Vital Signs Temperature 97.8 F 10/06/19 10:24 Pulse Rate 78 10/06/19 10:24 Respiratory Rate 18 10/06/19 10:24 Blood Pressure 98/64 10/06/19 10:24 O2 Sat by Pulse Oximetry (%) 98 10/06/19 09:00 Constitutional: Yes: Well Nourished, No Distress, Calm Eyes: Yes: Conjunctiva Clear, EOM Intact HENT: Yes: Atraumatic, Normocephalic Neck: Yes: Supple, Trachea Midline Cardiovascular: Yes: Regular Rate and Rhythm Respiratory: Yes: Regular, CTA Bilaterally Gastrointestinal: Yes: Normal Bowel Sounds, Soft ...Rectal Exam: Yes: Deferred Genitourinary: Yes: WNL Breast(s): Yes: WNL Musculoskeletal: Yes: WNL Edema: No Peripheral Pulses WNL: Yes Peripheral Pulses: Left Radial: 3+, Right Radial: 3+, Left Doralis Pedis: 3+, Right Dorsalis Pedis: 3+, Left Femoral: 3+, Right Femoral: 3+ Integumentary: Yes: WNL Neurological: Yes: Alert, Oriented ...Motor Strength: WNL Psychiatric: Yes: Alert, Oriented Labs: CBC, BMP 10/06/19 05:25 10/06/19 05:25 INR, PTT INR 1.10 (0.83-1.09) H 10/03/19 08:00 - ....Imaging Other: Report Reviewed (Lab data reviewed, Urology note read and appreciated) Problem List - Problems (1) Flank pain Code(s): R10.9 - UNSPECIFIED ABDOMINAL PAIN (2) Syncope and collapse Code(s): R55 - SYNCOPE AND COLLAPSE (3) Abdominal pain Code(s): R10.9 - UNSPECIFIED ABDOMINAL PAIN (4) Constipation Code(s): K59.00 - CONSTIPATION, UNSPECIFIED Qualifiers: Constipation type: slow transit constipation Qualified Code(s): K59.01 - Slow transit constipation (5) Hydronephrosis Code(s): N13.30 - UNSPECIFIED HYDRONEPHROSIS Qualifiers: Hydronephrosis type: unspecified Qualified Code(s): N13.30 - Unspecified hydronephrosis (6) Transaminasemia Code(s): R74.0 - NONSPEC ELEV OF LEVELS OF TRANSAMNS & LACTIC ACID DEHYDRGNSE (7) Hypoproteinemia Code(s): E77.8 - OTHER DISORDERS OF GLYCOPROTEIN METABOLISM (8) Hypoalbuminemia Code(s): E88.09 - OTH DISORDERS OF PLASMA-PROTEIN METABOLISM, NEC (9) Renal colic on right side Code(s): N23 - UNSPECIFIED RENAL COLIC (10) Acute dehydration Code(s): E86.0 - DEHYDRATION (11) Orthostatic hypotension Code(s): I95.1 - ORTHOSTATIC HYPOTENSION (12) History of cholecystectomy Code(s): Z90.49 - ACQUIRED ABSENCE OF OTHER SPECIFIED PARTS OF DIGESTIVE TRACT (13) Enlarged uterus Code(s): N85.2 - HYPERTROPHY OF UTERUS (14) Leiomyoma Code(s): D21.9 - BENIGN NEOPLASM OF CONNECTIVE AND OTHER SOFT TISSUE, UNSP Assessment/Plan Assessment/plan: acute right flank pain, acute periumbilical pain, acute syncope and collapse, acute unwitnessed fall with concussion and LOC, acute dehydration, acute orthostatic hypotension, acute nausea, loss of appetite and poor intake of fluids for several days prior to admission, acute transaminasemia (gradually resolving), mild right sided hydronephrosis with hydroureter, undergone cystoscopy, right ureteroscopy, right stone basketting, right mid ureteral biopsy,and right ureteral stent placement; IV fluids, oral Cephalexin, oral Tylenol prn for body pain.
[2019-10-06] MEDS ORDERED: SUCCINYLCHOLINE CHLORIDE 200 MG/10 ML SYRINGE ONE (15:50)
[2019-10-06] MEDS ORDERED: EPHEDRINE SULFATE/0.9% NACL/PF 50 MG/10 ML SYRINGE NR ONE (15:59)
--- NOTE | 2019-10-06 16:08 | OP ---
Operative Note - Note: Operative Date: 10/06/19 Pre-Operative Diagnosis: rt. hydronephrosis Operation: cysto, rt. retro, rt. ureteroscopy, rt. stone basketting and rt. mid- ureteral bx. and jj stent placement Findings: rt. ureteral stones, rt. mid-ureteral lesion, rt. hydro Post-Operative Diagnosis: Same as Pre-op Surgeon: Edith Rodriguez Anesthesia: General Specimens Removed: rt. ureteral stones, rt. ureteral lesion, urine Estimated Blood Loss (mls): 0 Drains & Tubes with Location: 24cm-6f rt. jj stent, 18f 10cc berrios Drains, Volume Out (mls): 0 Blood Volume Replaced (mls): 0 Fluid Volume Replaced (mls): 0 Operative Report Dictated: Yes
[2019-10-06] MEDS ORDERED: CEPHALEXIN MONOHYDRATE 500 MG CAPSULE (UD) PO SCH (16:15)
[2019-10-06] MEDS ORDERED: ONDANSETRON 4 MG TABLET PO PRN (16:28)
[2019-10-06] MEDS ORDERED: ACETAMINOPHEN 500 MG TABLET (FP) PO PRN (16:28)
--- NOTE | 2019-10-06 16:39 | OP ---
DATE OF OPERATION: 10/06/2019 PREOPERATIVE DIAGNOSIS: Right hydroureteronephrosis, history of nephrolithiasis. POSTOPERATIVE DIAGNOSIS: Right hydroureteronephrosis, history of nephrolithiasis, with stones in right lower ureter and a ureteral lesion in the right midureter. OPERATIVE PROCEDURE: Cystourethroscopy, right retrograde pyelogram, right ureteroscopy, right stone basketing, ureteral biopsy, and placement of a JJ stent. ANESTHESIA: General. DESCRIPTION OF PROCEDURE: Under above-stated anesthesia, patient is prepped and draped in the usual sterile manner. She was placed in the dorsal lithotomy position. Cystoscopy revealed a normal bladder. Ureteral orifices were within normal limits. There was efflux of urine from the left. None was seen from the right. A Flexi-Tip catheter was placed into the right ureteral orifice and 5 mL of contrast was injected. X-rays revealed a hydroureteronephrosis to the level of the lower third ureter. There appeared to be a tight strictured area at that point. A Glidewire was passed up the right renal unit. The cystoscope was removed. Ureteroscopy was performed. Several stones were found in the lower ureter. A stone basket was introduced and the stones were retrieved. Continuation of the ureteroscopy revealed a papillary lesion on the 6 o'clock position of the midureter. Flexible biopsy forceps were introduced and a biopsy of the lesion was taken. Continuation of ureteroscopy revealed a dilated right renal pelvis and calyceal system. The wire was left in the kidney. The ureteroscope was removed. A 24-cm 6-Tamazight JJ stent was left in place. X-rays confirmed good position of the stent. The bladder was emptied, scope was removed. Patient tolerated the procedure well. She returned to the recovery room in good condition. Flavio [id number]
[2019-10-06] MEDS ORDERED: PT OWN MED DRAWER 7, Y5N ONE ×2 (17:48→21:06)
[2019-10-06] MEDS: CEPHALEXIN MONOHYDRATE 500 MG CAPSULE (UD) PO SCH ×2 (17:55→21:31)
[2019-10-06] MEDS: oxyCODONE HCL 5 MG TABLET PO PRN (18:20)
[2019-10-07] MEDS: CEPHALEXIN MONOHYDRATE 500 MG CAPSULE (UD) PO SCH ×3 (05:33→21:30)
--- NOTE | 2019-10-07 08:36 | PN ---
Progress Note, Physician Chief Complaint: Patient seen and examined at the bedside. Denies to nausea, or abdominal pain. Appetite fair. Passing blood in urine. History of Present Illness: This 44 yr old female with hx of nephrolithiasis, personal hx of right ureteral stent placement and removal due to obstruction, tubal ligation, lithotripsy, and mild right sided hydronephrosis and hydroureter, admitted via ER with acute syncope and collapse preceded by acute volume depletion, nausea, dizziness and diaphoresis, unwitnessed concussion with LOC, acute right flank pain, acute periumbilical pain, and acute orthostatic hypotension. - Current Medication List Current Medications: Active Medications Acetaminophen (Tylenol -) 500 mg PO Q6H PRN PRN Reason: MODERATE PAIN 4-6 Acetaminophen (Tylenol -) 325 mg PO Q4H PRN PRN Reason: PAIN SCALE 1-5 Cephalexin HCl (Keflex -) 500 mg PO TID [facility] Last Admin: 10/07/19 05:33 Dose: 500 mg Famotidine (Pepcid -) 20 mg PO DAILY [facility] Ferrous Sulfate (Feosol -) 325 mg PO DAILY [facility] Dextrose/Sodium Chloride (Dextrose 5%-Normal Saline+20 Meq Kcl -) 20 meq in 1, 000 mls @ 100 mls/hr IV ASDIR [facility] Last Admin: 10/06/19 21:57 Dose: 100 mls/hr Ondansetron HCl (Zofran -) 4 mg PO Q8H PRN PRN Reason: NAUSEA Oxycodone HCl (Roxicodone -) 5 mg PO Q4H PRN PRN Reason: PAIN SCALE 1-5 Last Admin: 10/06/19 18:20 Dose: 5 mg - Objective Vital Signs: Vital Signs Temperature 98.5 F 10/07/19 06:43 Pulse Rate 61 10/07/19 06:43 Respiratory Rate 16 10/07/19 06:43 Blood Pressure 97/63 10/07/19 06:43 O2 Sat by Pulse Oximetry (%) 98 10/06/19 20:46 Constitutional: Yes: Well Nourished, Calm, Mild Distress Eyes: Yes: Conjunctiva Clear, EOM Intact HENT: Yes: Atraumatic, Normocephalic Neck: Yes: Supple, Trachea Midline Cardiovascular: Yes: Regular Rate and Rhythm Respiratory: Yes: Regular, CTA Bilaterally Gastrointestinal: Yes: Normal Bowel Sounds, Soft ...Rectal Exam: Yes: Deferred Genitourinary: Yes: Paz Present, Hematuria Breast(s): Yes: WNL Musculoskeletal: Yes: WNL Extremities: Yes: WNL Edema: No Peripheral Pulses WNL: Yes Peripheral Pulses: Left Radial: 3+, Right Radial: 3+, Left Doralis Pedis: 3+, Right Dorsalis Pedis: 3+, Left Femoral: 3+, Right Femoral: 3+ Integumentary: Yes: WNL Neurological: Yes: Alert, Oriented ...Motor Strength: WNL Psychiatric: Yes: Alert, Oriented Labs: CBC, BMP 10/06/19 05:25 10/06/19 05:25 INR, PTT INR 1.10 (0.83-1.09) H 10/03/19 08:00 Problem List - Problems (1) Flank pain Code(s): R10.9 - UNSPECIFIED ABDOMINAL PAIN (2) Syncope and collapse Code(s): R55 - SYNCOPE AND COLLAPSE (3) Abdominal pain Code(s): R10.9 - UNSPECIFIED ABDOMINAL PAIN (4) Constipation Code(s): K59.00 - CONSTIPATION, UNSPECIFIED Qualifiers: Constipation type: slow transit constipation Qualified Code(s): K59.01 - Slow transit constipation (5) Hydronephrosis Code(s): N13.30 - UNSPECIFIED HYDRONEPHROSIS Qualifiers: Hydronephrosis type: unspecified Qualified Code(s): N13.30 - Unspecified hydronephrosis (6) Transaminasemia Code(s): R74.0 - NONSPEC ELEV OF LEVELS OF TRANSAMNS & LACTIC ACID DEHYDRGNSE (7) Hypoproteinemia Code(s): E77.8 - OTHER DISORDERS OF GLYCOPROTEIN METABOLISM (8) Hypoalbuminemia Code(s): E88.09 - OTH DISORDERS OF PLASMA-PROTEIN METABOLISM, NEC (9) Renal colic on right side Code(s): N23 - UNSPECIFIED RENAL COLIC (10) Acute dehydration Code(s): E86.0 - DEHYDRATION (11) Orthostatic hypotension Code(s): I95.1 - ORTHOSTATIC HYPOTENSION (12) History of cholecystectomy Code(s): Z90.49 - ACQUIRED ABSENCE OF OTHER SPECIFIED PARTS OF DIGESTIVE TRACT (13) Enlarged uterus Code(s): N85.2 - HYPERTROPHY OF UTERUS (14) Leiomyoma Code(s): D21.9 - BENIGN NEOPLASM OF CONNECTIVE AND OTHER SOFT TISSUE, UNSP Assessment/Plan Assessment/plan: acute syncope and collapse, acute right flank pain, acute periumbilical pain, acute unwitnessed fall with concussion and LOC, acute orthostatic hypotension, acute dehydration, acute transaminasemia improving, mild right sided hydronephrosis with hydroureter, undergone cystoscopy, right retrograde pyelogram, right ureteroscopy, right stone basketting, right mid ureteral biopsy, and right ureteral 24cm JJ stent placement; IV fluids, oral Cephalexin, oral Oxycodone for body pain prn.
--- NOTE | 2019-10-07 08:44 | PN ---
Progress Note (short form) - Note Progress Note: 44 F s/p GA for cysto stent insertion. pt feels well. no comps. good result of anesthetic care.
[2019-10-07] MEDS: FERROUS SO4 325 MG TABLET (FP) PO SCH (10:32)
[2019-10-07] MEDS: FAMOTIDINE 20 MG TABLET PO SCH (10:32)
[2019-10-07] MEDS: ACETAMINOPHEN 325 MG TABLET (FP) PO PRN ×2 (10:51→21:32)
[2019-10-07] MEDS: D5-NS + 20 MEQ KCL - 20 MEQ/1,000 ML INFUS.BAG IV SCH (21:34)
[2019-10-08] MEDS: oxyCODONE HCL 5 MG TABLET PO PRN (01:05)
[2019-10-08] MEDS: CEPHALEXIN MONOHYDRATE 500 MG CAPSULE (UD) PO SCH ×3 (06:03→21:46)
[2019-10-08 07:36] LABS: BASO % 0.7 % (0-2.0); EOS % 2.2 % (0-4.5); HEMATOCRIT 32.3 % (32.4-45.2); HEMOGLOBIN 10.7 GM/dL (10.7-15.3); MCH 30.6 pg (25.7-33.7); MCHC 33.2 g/dl (32.0-36.0); MEAN CELL VOLUME 92.2 fl (80-96); MONO % 14.9 % (3.8-10.2); NEUT % 54.2 % (42.8-82.8); PLATELET COUNT 326 K/MM3 (134-434); RDW 16.9 % (11.6-15.6); WHITE BLOOD COUNT 7.9 K/mm3 (4.0-10.0)
[2019-10-08 08:15] LABS: BILIRUBIN,TOTAL 0.2 mg/dL (0.2-1); BLOOD UREA NITROGEN 10.2 mg/dL (7-18); CALCIUM 8.4 mg/dL (8.5-10.1); CREATININE 0.6 mg/dL (0.55-1.3); POTASSIUM 4.5 mmol/L (3.5-5.1)
[2019-10-08] MEDS: FAMOTIDINE 20 MG TABLET PO SCH (10:07)
[2019-10-08] MEDS: ACETAMINOPHEN 325 MG TABLET (FP) PO PRN (10:08)
--- NOTE | 2019-10-08 12:02 | PN ---
Progress Note, Physician Chief Complaint: Acute right flank pain, nausea, hematuria, urine leaking from genital area. History of Present Illness: This 44 yr old female with history of nephrolithiasis, tubal ligation, nephrolithotripsy, status post cholecystectomy, and mild right sided hydronephrosis admitted via ER with acute syncope and collapse preceded by dizziness, cold sweat, and nausea; acute right flank pain, acute periumbilical pain, dehydration, and orthostatic hypotension. - Current Medication List Current Medications: Active Medications Acetaminophen (Tylenol -) 325 mg PO Q4H PRN PRN Reason: PAIN SCALE 1-5 Last Admin: 10/08/19 10:08 Dose: 325 mg Cephalexin HCl (Keflex -) 500 mg PO TID [facility] Last Admin: 10/08/19 06:03 Dose: 500 mg Famotidine (Pepcid -) 20 mg PO DAILY [facility] Last Admin: 10/08/19 10:07 Dose: 20 mg Ferrous Sulfate (Feosol -) 325 mg PO DAILY [facility] Last Admin: 10/07/19 10:32 Dose: 325 mg Dextrose/Sodium Chloride (Dextrose 5%-Normal Saline+20 Meq Kcl -) 20 meq in 1, 000 mls @ 100 mls/hr IV ASDIR [facility] Last Admin: 10/07/19 21:34 Dose: 100 mls/hr Ondansetron HCl (Zofran -) 4 mg PO Q8H PRN PRN Reason: NAUSEA Oxycodone HCl (Roxicodone -) 5 mg PO Q4H PRN PRN Reason: PAIN SCALE 1-5 Last Admin: 10/08/19 01:05 Dose: 5 mg - Objective Vital Signs: Vital Signs Temperature 97.4 F L 10/08/19 10:41 Pulse Rate 73 10/08/19 10:41 Respiratory Rate 18 10/08/19 10:41 Blood Pressure 102/72 10/08/19 10:41 O2 Sat by Pulse Oximetry (%) 98 10/07/19 21:00 Constitutional: Yes: Moderate Distress, Other (Lethargic) Eyes: Yes: Conjunctiva Clear, EOM Intact HENT: Yes: Atraumatic, Normocephalic Neck: Yes: Supple, Trachea Midline Cardiovascular: Yes: Regular Rate and Rhythm Respiratory: Yes: Regular, CTA Bilaterally Gastrointestinal: Yes: Normal Bowel Sounds, Soft, Other (status post cholecystectomy) ...Rectal Exam: Yes: Deferred Genitourinary: Yes: CVA Tenderness - Right, Paz Present, Hematuria Breast(s): Yes: WNL Musculoskeletal: Yes: WNL Extremities: Yes: WNL Edema: No Peripheral Pulses WNL: Yes Peripheral Pulses: Left Radial: 3+, Right Radial: 3+, Left Doralis Pedis: 3+, Right Dorsalis Pedis: 3+, Left Femoral: 3+, Right Femoral: 3+ Neurological: Yes: Alert, Oriented ...Motor Strength: WNL Psychiatric: Yes: Alert, Oriented Labs: CBC, BMP 10/08/19 06:45 10/08/19 06:00 INR, PTT INR 1.10 (0.83-1.09) H 10/03/19 08:00 - ....Imaging Ultrasound: Report Reviewed (Renal sonogram - both kidneys without gross evidence of hydronephrosis) Other: Report Reviewed (Lab data reviewed) Problem List - Problems (1) Flank pain Code(s): R10.9 - UNSPECIFIED ABDOMINAL PAIN (2) Syncope and collapse Code(s): R55 - SYNCOPE AND COLLAPSE (3) Abdominal pain Code(s): R10.9 - UNSPECIFIED ABDOMINAL PAIN (4) Constipation Code(s): K59.00 - CONSTIPATION, UNSPECIFIED Qualifiers: Constipation type: slow transit constipation Qualified Code(s): K59.01 - Slow transit constipation (5) Hydronephrosis Code(s): N13.30 - UNSPECIFIED HYDRONEPHROSIS Qualifiers: Hydronephrosis type: unspecified Qualified Code(s): N13.30 - Unspecified hydronephrosis (6) Transaminasemia Code(s): R74.0 - NONSPEC ELEV OF LEVELS OF TRANSAMNS & LACTIC ACID DEHYDRGNSE (7) Hypoproteinemia Code(s): E77.8 - OTHER DISORDERS OF GLYCOPROTEIN METABOLISM (8) Hypoalbuminemia Code(s): E88.09 - OTH DISORDERS OF PLASMA-PROTEIN METABOLISM, NEC (9) Renal colic on right side Code(s): N23 - UNSPECIFIED RENAL COLIC (10) Acute dehydration Code(s): E86.0 - DEHYDRATION (11) Orthostatic hypotension Code(s): I95.1 - ORTHOSTATIC HYPOTENSION (12) History of cholecystectomy Code(s): Z90.49 - ACQUIRED ABSENCE OF OTHER SPECIFIED PARTS OF DIGESTIVE TRACT (13) Enlarged uterus Code(s): N85.2 - HYPERTROPHY OF UTERUS (14) Leiomyoma Code(s): D21.9 - BENIGN NEOPLASM OF CONNECTIVE AND OTHER SOFT TISSUE, UNSP Assessment/Plan Assessment/plan: acute syncope and collapse, acute unwitnessed fall with concussion with LOC, intermittent acute right flank pain, acute periumbilical pain, mild right sided hydronephrosis resolved, acute dehydration, acute orthostatic hypotension, acute transaminasemia, gross hematuria; IV fluids, oral Tylenol for body pain, oral Cephalexin, status post cystoscopy, right retrograde pyelogram, right ureteroscopy, right stone basketting, right ureteral 24cm JJ stent placement.
[2019-10-08] MEDS: FERROUS SO4 325 MG TABLET (FP) PO SCH (12:49)
[2019-10-08] MEDS: D5-NS + 20 MEQ KCL - 20 MEQ/1,000 ML INFUS.BAG IV SCH (18:48)
[2019-10-09] MEDS: CEPHALEXIN MONOHYDRATE 500 MG CAPSULE (UD) PO SCH (06:16)
[2019-10-09] MEDS: D5-NS + 20 MEQ KCL - 20 MEQ/1,000 ML INFUS.BAG IV SCH (06:17)
[2019-10-09 06:32] LABS: BASO % 1.2 % (0-2.0); EOS % 4.5 % (0-4.5); HEMATOCRIT 31.5 % (32.4-45.2); HEMOGLOBIN 10.6 GM/dL (10.7-15.3); LYMPH % 33.4 % (8-40); MCH 30.4 pg (25.7-33.7); MCHC 33.6 g/dl (32.0-36.0); MEAN CELL VOLUME 90.6 fl (80-96); MEAN PLT VOLUME 8.8 fl (7.5-11.1); MONO % 15.4 % (3.8-10.2); NEUT % 45.5 % (42.8-82.8); PLATELET COUNT 343 K/MM3 (134-434); RBC 3.48 M/mm3 (3.60-5.2); RDW 16.5 % (11.6-15.6); WHITE BLOOD COUNT 6.3 K/mm3 (4.0-10.0)
[2019-10-09 07:02] LABS: ALBUMIN 2.9 g/dl (3.4-5.0); BILIRUBIN,TOTAL 0.1 mg/dL (0.2-1); BLOOD UREA NITROGEN 12.3 mg/dL (7-18); CALCIUM 8.4 mg/dL (8.5-10.1); CREATININE 0.5 mg/dL (0.55-1.3); POTASSIUM 4.2 mmol/L (3.5-5.1); TOT PROT 5.8 g/dl (6.4-8.2)
[2019-10-09] MEDS ORDERED: morphine CARPU-JECT 2 MG/1 ML DISP.SYRIN IVPUSH ONE (07:34)
--- NOTE | 2019-10-09 07:46 | PN ---
Progress Note, Physician Chief Complaint: No specific complaints History of Present Illness: This 44 yr old female with hx of nephrolithiasis, mild right sided hydronephrosis, lithotripsy, and tubal ligation admitted via ER with acute right flank pain preseceded by nausea, diaphoresis, and dizziness and subsequently followed by an acute syncope and collapse, and concussion with LOC. - Current Medication List Current Medications: Active Medications Acetaminophen (Tylenol -) 325 mg PO Q4H PRN PRN Reason: PAIN SCALE 1-5 Last Admin: 10/08/19 10:08 Dose: 325 mg Cephalexin HCl (Keflex -) 500 mg PO TID [facility] Last Admin: 10/09/19 06:16 Dose: 500 mg Famotidine (Pepcid -) 20 mg PO DAILY [facility] Last Admin: 10/08/19 10:07 Dose: 20 mg Ferrous Sulfate (Feosol -) 325 mg PO DAILY [facility] Last Admin: 10/08/19 12:49 Dose: Not Given Dextrose/Sodium Chloride (Dextrose 5%-Normal Saline+20 Meq Kcl -) 20 meq in 1, 000 mls @ 100 mls/hr IV ASDIR [facility] Last Admin: 10/09/19 06:17 Dose: 100 mls/hr Ondansetron HCl (Zofran -) 4 mg PO Q8H PRN PRN Reason: NAUSEA Oxycodone HCl (Roxicodone -) 5 mg PO Q4H PRN PRN Reason: PAIN SCALE 1-5 Last Admin: 10/08/19 01:05 Dose: 5 mg - Objective Vital Signs: Vital Signs Temperature 98 F 10/09/19 02:00 Pulse Rate 63 10/09/19 04:00 Respiratory Rate 20 10/09/19 04:00 Blood Pressure 96/65 10/09/19 04:00 O2 Sat by Pulse Oximetry (%) 98 10/08/19 22:00 Constitutional: Yes: Well Nourished, No Distress Eyes: Yes: Conjunctiva Clear, EOM Intact HENT: Yes: Atraumatic, Normocephalic Neck: Yes: Supple, Trachea Midline Cardiovascular: Yes: Regular Rate and Rhythm Respiratory: Yes: Regular, CTA Bilaterally Gastrointestinal: Yes: Normal Bowel Sounds, Soft ...Rectal Exam: Yes: Deferred Genitourinary: Yes: Paz Present Breast(s): Yes: WNL Musculoskeletal: Yes: WNL Extremities: Yes: WNL Edema: No Peripheral Pulses WNL: Yes Peripheral Pulses: Left Radial: 3+, Right Radial: 3+, Left Doralis Pedis: 3+, Right Dorsalis Pedis: 3+, Left Femoral: 3+, Right Femoral: 3+ Integumentary: Yes: WNL Neurological: Yes: WNL, Alert, Oriented ...Motor Strength: WNL Psychiatric: Yes: WNL Labs: CBC, BMP 10/09/19 05:30 10/09/19 05:30 INR, PTT INR 1.10 (0.83-1.09) H 10/03/19 08:00 - ....Imaging Other: Report Reviewed (Lab data reviewed) Problem List - Problems (1) Flank pain Code(s): R10.9 - UNSPECIFIED ABDOMINAL PAIN (2) Syncope and collapse Code(s): R55 - SYNCOPE AND COLLAPSE (3) Abdominal pain Code(s): R10.9 - UNSPECIFIED ABDOMINAL PAIN (4) Constipation Code(s): K59.00 - CONSTIPATION, UNSPECIFIED Qualifiers: Constipation type: slow transit constipation Qualified Code(s): K59.01 - Slow transit constipation (5) Hydronephrosis Code(s): N13.30 - UNSPECIFIED HYDRONEPHROSIS Qualifiers: Hydronephrosis type: unspecified Qualified Code(s): N13.30 - Unspecified hydronephrosis (6) Transaminasemia Code(s): R74.0 - NONSPEC ELEV OF LEVELS OF TRANSAMNS & LACTIC ACID DEHYDRGNSE (7) Hypoproteinemia Code(s): E77.8 - OTHER DISORDERS OF GLYCOPROTEIN METABOLISM (8) Hypoalbuminemia Code(s): E88.09 - OTH DISORDERS OF PLASMA-PROTEIN METABOLISM, NEC (9) Renal colic on right side Code(s): N23 - UNSPECIFIED RENAL COLIC (10) Acute dehydration Code(s): E86.0 - DEHYDRATION (11) Orthostatic hypotension Code(s): I95.1 - ORTHOSTATIC HYPOTENSION (12) History of cholecystectomy Code(s): Z90.49 - ACQUIRED ABSENCE OF OTHER SPECIFIED PARTS OF DIGESTIVE TRACT (13) Enlarged uterus Code(s): N85.2 - HYPERTROPHY OF UTERUS (14) Leiomyoma Code(s): D21.9 - BENIGN NEOPLASM OF CONNECTIVE AND OTHER SOFT TISSUE, UNSP Assessment/Plan Assessment/plan: acute right flank pain, acute syncope and collapse, acute concussion with LOC, acute dehydration, acute orthostatic hypotension, acute transaminasemia gradually resolving; IV fluids, Paz catheter in place, orange urine, oral Zofran as needed, cystoscopy, right retrograde pyelogram, right ureteroscopy, right stone basketting, right ureter 24cm JJ stent placement.
[2019-10-09 08:53] VITALS: PULSE 78; TEMP 98.4
[2019-10-09] MEDS: FAMOTIDINE 20 MG TABLET PO SCH (10:21)
[2019-10-09] MEDS: FERROUS SO4 325 MG TABLET (FP) PO SCH (10:21)
--- NOTE | 2019-10-09 11:27 | CONS ---
DATE OF CONSULTATION: DATE OF DICTATION: 10/08/2019 HISTORY: Postoperative day 2 status post cystoscopy, right retrograde pyelogram, right ureteroscopy, right mid ureteral biopsy, and right stone basketing with placement of a right JJ stent. PHYSICAL EXAMINATION: Vital Signs: Patient is afebrile. Her maximum temperature is 98.3, blood pressure 92/68. White count 7.9, BUN 10.3, creatinine 0.6. Abdomen: Her abdomen is soft. Genitourinary: Paz patent. Urine pink. PLAN: We will discontinue Paz in AM. If patient voids well, we will clear urologically for discharge. We will follow up patient in office and perform a stone workup. Flavio [id number]
[2019-10-09 11:45] VITALS: BP 101/60
[2019-10-09] MEDS ORDERED: POLYETHYLENE GLYCOL 3350 119 GM BTL PO ONE (11:50)
--- NOTE | 2019-10-09 12:19 | DS ---
Physical Examination Vital Signs: Vital Signs Temperature 98.4 F 10/09/19 08:00 Pulse Rate 78 10/09/19 08:00 Respiratory Rate 20 10/09/19 08:00 Blood Pressure 101/60 10/09/19 11:45 O2 Sat by Pulse Oximetry (%) 100 10/09/19 09:00 Constitutional: Yes: No Distress Eyes: Yes: Conjunctiva Clear HENT: Yes: Atraumatic Neck: Yes: Trachea Midline Respiratory: Yes: Regular, CTA Bilaterally Gastrointestinal: Yes: Normal Bowel Sounds, Soft, Other (constipation) ...Rectal Exam: Yes: Deferred Renal/: Yes: WNL Breast(s): Yes: WNL Musculoskeletal: Yes: WNL Extremities: Yes: WNL Edema: No Peripheral Pulses: Left Radial: 3+, Right Radial: 3+, Left Doralis Pedis: 3+, Right Dorsalis Pedis: 3+, Left Femoral: 3+, Right Femoral: 3+ Integumentary: Yes: WNL Neurological: Yes: Alert, Oriented ...Motor Strength: WNL Psychiatric: Yes: Alert Labs: CBC, BMP 10/09/19 05:30 10/09/19 05:30 Discharge Summary Problems reviewed: Yes Reason For Visit: FLANK PAIN,SYNCOPE AND COLLAPSE Current Active Problems Acute dehydration (Acute) Enlarged uterus (Acute) Flank pain (Acute) History of cholecystectomy (Acute) Hypoalbuminemia (Acute) Hypoproteinemia (Acute) Leiomyoma (Acute) Orthostatic hypotension (Acute) Renal colic on right side (Acute) Syncope and collapse (Acute) Transaminasemia (Acute) Condition: Guarded - Instructions Referrals: Batsheva Gomez MD [Primary Care Provider] - Disposition: HOME - Home Medications Comprehensive Discharge Medication List: Ambulatory Orders Cephalexin Monohydrate [Keflex -] 500 mg PO TID capsule 10/09/19 for 7 days Famotidine [Pepcid -] 20 mg PO DAILY #0 tablet 10/09/19 Ferrous Sulfate [Feosol] 325 mg PO DAILY ud 10/09/19 Drink at least 2 quarts of fluids daily. Follow up with Dr. Edith Rodriguez on Wednesday. Follow up with Dr. Batsheva Gomez Regular diet. Activity as tolerated. Total time spent over 30 minutes.
--- NOTE | 2019-10-10 13:51 | PATH ---
Surgical Pathology Report Patient Name: VANITA WOLF Med. Rec. #: [id number] /Age/Gender: 1975 (Age: 44) / F Account: [id number] Location: EMERGENCY ROOM Taken: 10/06/2019 Received: 10/09/2019 Reported: 10/10/2019 Physicians: Flavio Turcios M.D. Specimen(s) Received A: URETAERAL LEGION UPPER PORTION OF THE LOWER THIRD B: RIGHT URETERAL STONE Clinical History Flank pain Final Diagnosis A. URETERAL LESION, UPPER POSTERIOR OF THE LOWER THIRD, BIOPSY: MUCOSAL TISSUE SHOWING EPITHELIAL DENUDATION AND MILD CHRONIC INFLAMMATION. NO EVIDENCE OF MALIGNANCY. B. RIGHT URETERAL STONE, REMOVAL: URETERAL CALCULI; SENT FOR CHEMICAL ANALYSIS. Electronically Signed Dixie Ferrari M.D. Gross Description A. Received in formalin labeled "ureteral lesion," is a 0.2 cm greatest dimension lovett soft tissue fragment. The formalin is filtered and the specimen is entirely submitted in one cassette. B. Received fresh labeled "ureteral stone," are 2 black, irregular calculi measuring 0.1 and 0.7 cm in greatest dimension. The specimen is sent for chemical analysis. /10/09/2019 saudi10/09/2019
[2019-11-06 13:07] LABS: CA OXALATE MONOHYDR. 46 % (.); CALCIUM PHOSPHATE 24 % (.); SIZE 5x4x2 mm (.)
== END 2019-10-09 13:32 | disposition home or self-care (01) | DRG 446 ==
LOC: JER 07:21 → JERBED 10:13 → J2W 17:08 → OBSVTOIN 10-07 08:55
PROVIDERS: ADMIT Internal Medicine; ATTEND Internal Medicine
PROC: BT1DZZZ Fluoroscopy of Right Kidney, Ureter and Bladder (ICD-10-PCS; 2019-10-06)
PROC: 0T768DZ Dilation of Right Ureter with Intraluminal Device, Via Natural or Artificial Opening Endoscopic (ICD-10-PCS; principal; 2019-10-06 13:00)
PROC: 0TC68ZZ Extirpation of Matter from Right Ureter, Via Natural or Artificial Opening Endoscopic (ICD-10-PCS; 2019-10-06 13:00)
DX: N13.2 Hydronephrosis with renal and ureteral calculous obstruction (principal); R55 Syncope and collapse; I95.1 Orthostatic hypotension; R74.0 Nonspecific elevation of levels of transaminase and lactic acid dehydrogenase [LDH]; E86.0 Dehydration; E88.09 Other disorders of plasma-protein metabolism, not elsewhere classified
CPT/HCPCS: 36415; 70450-TC; 74176-TC; 76775; 76775-TC; 76856-TC; 80053; 81003; 82272; 82360; 84484; 85025; 85610; 87086; 88300-TC; 88305-TC; 93005; 93010; 94010; 94760; 99285-25; G0378; J0131

== ENCOUNTER 2020-05-19 18:07 | Emergency (ER) | payer OTHER ==
[2020-05-19 18:12] VITALS: BP 113/77; PULSE 80; TEMP 98; BMI 21.7
[2020-05-19] MEDS ORDERED: ONDANSETRON 4 MG/2 ML VIAL IVPUSH ONE (19:07)
[2020-05-19] MEDS ORDERED: PANTOPRAZOLE SODIUM 40 MG VIAL IVPUSH ONE (19:07)
[2020-05-19] MEDS ORDERED: KETOROLAC TROMETHAMINE 30 MG/1 ML VIAL IVPUSH ONE (19:07)
--- NOTE | 2020-05-19 19:13 | PDOC ---
History of Present Illness - General Chief Complaint: Pain Stated Complaint: ABDOMINAL PAIN Time Seen by Provider: 05/19/20 18:54 History Source: Patient Exam Limitations: No Limitations - History of Present Illness Initial Comments: 05/19/20 19:08 44-year-old female no significant past medical history presenting to the ED complaining of bilateral flank pain with nausea with associated pain radiating to the groin. Patient states she was seen and evaluated at [facility] 3 weeks ago and found to have a kidney stone with right-sided hydronephrosis. Patient was to follow-up with both her [facility] H[facility]ORIAN and urologist and was scheduled for a lithotripsy with her urologist (Bin) in June. However patient states that her pain has worsened and that she is having difficulty eating secondary to nausea. Patient is able to pass urine and denies any hematuria. Patient is also complaining of a frontal headache which she took Tylenol for with only mild relief. Headache not associated with lacrimation, fever, vomiting, changes in vision, photophobia or neck stiffness; not maximal intensity at onset and non- exertional at onset. Pt otherwise denies: fevers, chills, syncope, lightheadedness, dizziness, changes in vision, changes in hearing, neck pain, chest pain, shortness of breath, palpitations, back pain, vomiting, diarrhea, constipation, melena, hematochezia, dysuria, hematuria, increased urinary frequency/urgency, vaginal bleeding, vaginal discharge. Past History - Medical History Allergies/Adverse Reactions: Allergies Allergy/AdvReac Type Severity Reaction Status Date / Time morphine AdvReac Severe Verified 05/19/20 18:12 KIWI Allergy Severe Uncoded 05/19/20 18:12 Home Medications: Ambulatory Orders NK [No Known Home Medication] 05/19/20 Anemia: No Asthma: No Cancer: No Cardiac Disorders: No CVA: No COPD: No CHF: No Dementia: No Diabetes: No GI Disorders: No Disorders: No HTN: No Hypercholesterolemia: No Kidney Stones: Yes Liver Disease: No Seizures: No Thyroid Disease: No - Surgical History Abdominal Surgery: Yes (renal stents/ then removed) Appendectomy: No Cardiac Surgery: No Cholecystectomy: Yes Lung Surgery: No Neurologic Surgery: No Orthopedic Surgery: No - Reproductive History Is Patient Now?: No - Immunization History Immunization Up to Date: Yes - Psycho-Social/Smoking History Smoking Status: No Smoking History: Never smoked Have you smoked in the past 12 months: No Number of Cigarettes Smoked Daily: 0 *Physical Exam - Vital Signs Last Vital Signs Temp Pulse Resp BP Pulse Ox 98 F 80 18 113/77 100 05/19/20 18:09 05/19/20 18:09 05/19/20 18:09 05/19/20 18:09 05/19/20 18:09 - Physical Exam 05/19/20 19:11 Gen: AAOx 3, no acute distress, comfortable, no signs of respiratory distress HENT: atraumatic, normocephalic with no laceration or contusion. Nasal mucosa without erythema. Oropharynx without erythema or exudates. Mucous membranes moist. EYES: PERRL, EOM intact, conjunctiva pink NECK: supple; trachea midline; no JVD, no lymphadenopathy, or thyromegaly CV: RRR no murmurs, gallops, or rubs. CHEST: CTA b/l no wheezing, rales or rhonchi ABD: +BS/ND. no TTP; soft, no rebound, no guarding -CVAT PELVIC: No external lesions, vaginal vault: - white discharge, no blood, - midline tenderness elicited with manual exam, no CMT or adnexal tenderness; os unable to be visualized EXTREMITY: no cyanosis or erythema. 2+ dorsalis pedis, posterior tibial, and radial pulse. No pedal edema; no calf swelling or tenderness SKIN: no rash, warm and dry, no diaphoresis HEME: no purpura or ecchymosis NEURO: normal speech, CN II-XII intact, sensation intact, normal gait, no cerebellar deficits MS: 5/5 strength in all extremities, FROM intact in all extremities. 05/19/20 23:36 ED Treatment Course - LABORATORY CBC & Chemistry Diagram: 05/19/20 20:24 05/19/20 20:24 Medical Decision Making - Medical Decision Making 05/19/20 19:12 44 year old female with known kidney stone with flank pain, lower abdominal pain and GARCIA VSS Will obtain labs UA UC Will administer Protonix, toradol, zofran Labs all within normal limits UA negative for UTI or hematuria CT shows mild right hydronephrosis no evidence for renal ureteral or urinary bladder stone no perinephric stranding Complex appearing 2.9 cm left ovarian cyst small amount of cul-de-sac free fluid likely physiological Will obtain TVUS to further asses and r/o torsion Due to shift change pt signed out pending TVUS results and further management Discharge - Discharge Information Problems reviewed: Yes Clinical Impression/Diagnosis: Ovarian cyst Qualifiers: Laterality: left Qualified Code(s): N83.202 - Unspecified ovarian cyst, left s matthew Condition: Stable Disposition: HOME - Follow up/Referral - Patient Discharge Instructions Patient Printed Discharge Instructions: DI for Ovarian Cyst Additional Instructions: PLEASE FOLLOW UP WITH [facility] AND UROLOGY - Post Discharge Activity Work/Back to School Note: Back to Work
--- NOTE | 2020-05-19 20:04 | PDOC ---
*Physical Exam - Vital Signs Last Vital Signs Temp Pulse Resp BP Pulse Ox 98 F 80 18 113/77 100 05/19/20 18:09 05/19/20 18:09 05/19/20 18:09 05/19/20 18:09 05/19/20 18:09 ED Treatment Course - LABORATORY CBC & Chemistry Diagram: 05/19/20 20:24 05/19/20 20:24 Medical Decision Making - Medical Decision Making 05/19/20 20:04 Patient seen by the advanced practice provider under my supervision. Ancillary testing reviewed as necessary. I agree with plan as outlined by the advanced practice provider. Discharge - Discharge Information Problems reviewed: Yes Clinical Impression/Diagnosis: Ovarian cyst Qualifiers: Laterality: left Qualified Code(s): N83.202 - Unspecified ovarian cyst, left side Condition: Stable Disposition: HOME - Follow up/Referral - Patient Discharge Instructions Patient Printed Discharge Instructions: DI for Ovarian Cyst Additional Instructions: PLEASE FOLLOW UP WITH [facility] AND UROLOGY - Post Discharge Activity Work/Back to School Note: Back to Work
[2020-05-19] MEDS ORDERED: PANTOPRAZOLE SODIUM 40 MG VIAL ONE (20:29)
[2020-05-19] MEDS ORDERED: KETOROLAC TROMETHAMINE 30 MG/1 ML VIAL ONE (20:29)
[2020-05-19] MEDS ORDERED: SODIUM CHLORIDE 0.9% 500 ML INFUS.BAG IV ONE (20:36)
[2020-05-19 21:01] LABS: BASO % 1.3 % (0-2.0); EOS % 2.2 % (0-4.5); HEMATOCRIT 36.6 % (32.4-45.2); LYMPH % 31.3 % (8-40); MCH 30.9 pg (25.7-33.7); MCHC 32.9 g/dl (32.0-36.0); MEAN PLT VOLUME 9.3 fl (7.5-11.1); MONO % 11.4 % (3.8-10.2); NEUT % 53.8 % (42.8-82.8); PLATELET COUNT 352 K/MM3 (134-434); RBC 3.89 M/mm3 (3.60-5.2); RDW 15.2 % (11.6-15.6); WHITE BLOOD COUNT 7.5 K/mm3 (4.0-10.0)
[2020-05-19 21:09] LABS: INR 1.04 (0.83-1.09); PROTHROMBIN TIME (PATIENT) 12.3 SEC (9.7-13.0)
[2020-05-19 21:11] LABS: ACTIVATED PTT 31.9 SECONDS (25.2-36.5)
[2020-05-19 21:33] LABS: URINE APPEARANCE Error; URINE BILIRUBIN NEGATIVE (NEGATIVE); URINE COLOR YELLOW; URINE GLUCOSE (UA) NEGATIVE (NEGATIVE); URINE KETONE NEGATIVE (NEGATIVE); URINE LEUK ESTERASE NEGATIVE (NEGATIVE); URINE NITRITE NEGATIVE (NEGATIVE); URINE PROTEIN NEGATIVE (NEGATIVE); URINE UROBILINOGEN 0.2 mg/dL (0.2-1.0)
[2020-05-19 21:37] LABS: ALBUMIN 3.9 g/dl (3.4-5.0); ALK PHOS 74 U/L (45-117); ANION GAP 7 MMOL/L (8-16); BILIRUBIN,TOTAL 0.2 mg/dL (0.2-1); BLOOD UREA NITROGEN 10.8 mg/dL (7-18); CALCIUM 8.7 mg/dL (8.5-10.1); CHLORIDE 105 mmol/L (98-107); CO2 28 mmol/L (21-32); CREATININE 0.7 mg/dL (0.55-1.3); GLUCOSE,RANDOM 83 mg/dL (74-106); LIPASE 199 U/L (73-393); POTASSIUM 4.2 mmol/L (3.5-5.1); SGOT/AST 13 U/L (15-37); SGPT/ALT 17 U/L (13-61); SODIUM 140 mmol/L (136-145); TOT PROT 7.7 g/dl (6.4-8.2)
--- NOTE | 2020-05-19 23:50 | PDOC ---
*Physical Exam - Vital Signs Last Vital Signs Temp Pulse Resp BP Pulse Ox 98 F 80 18 113/77 100 05/19/20 18:09 05/19/20 18:09 05/19/20 18:09 05/19/20 18:09 05/19/20 18:09 - Physical Exam Received patient at sign out. At the time of sign out, patient had a pending TVUS. ED Treatment Course - LABORATORY CBC & Chemistry Diagram: 05/19/20 20:24 05/19/20 20:24 - ADDITIONAL ORDERS Additional order review: Laboratory Results 05/19/20 05/19/20 05/19/20 20:49 20:24 20:24 PT with INR 12.30 INR 1.04 PTT (Actin FS) 31.9 Sodium 140 Potassium 4.2 Chloride 105 Carbon Dioxide 28 Anion Gap 7 L BUN 10.8 Creatinine 0.7 Est GFR (CKD-EPI)AfAm 120.43 Est GFR (CKD-EPI)NonAf 103.90 Random Glucose 83 Calcium 8.7 Total Bilirubin 0.2 AST 13 L ALT 17 Alkaline Phosphatase 74 Total Protein 7.7 Albumin 3.9 Lipase 199 Beta HCG, Quant < 1.0 Urine Color Yellow Urine Appearance Error Urine pH 7.0 D Ur Specific [place] 1.022 Urine Protein Negative Urine Glucose (UA) Negative Urine Ketones Negative Urine Blood Negative Urine Nitrite Negative Urine Bilirubin Negative Urine Urobilinogen 0.2 Ur Leukocyte Esterase Negative 05/19/20 20:24 RBC 3.89 MCV 94.0 MCHC 32.9 RDW 15.2 MPV 9.3 Neutrophils % 53.8 Lymphocytes % 31.3 Monocytes % 11.4 H Eosinophils % 2.2 Basophils % 1.3 - Medications Given in the ED: ED Medications Discontinued Medications Generic Name Dose Route Start Last Admin Trade Name Freq PRN Reason Stop Dose Admin Ketorolac Tromethamine 30 mg 05/19/20 19:07 05/19/20 20:48 Toradol Injection - IVPUSH 05/19/20 19:08 30 mg ONCE ONE Administration Ondansetron HCl 4 mg 05/19/20 19:07 05/19/20 20:48 Zofran Injection IVPUSH 05/19/20 19:08 4 mg ONCE ONE Administration Pantoprazole Sodium 40 mg 05/19/20 19:07 05/19/20 20:48 Protonix Iv IVPUSH 05/19/20 19:08 40 mg ONCE ONE Administration Sodium Chloride 1,000 ml 05/19/20 20:36 05/19/20 20:49 Normal Saline - IV 05/19/20 20:37 1,000 ml ONCE ONE Administration Medical Decision Making - Medical Decision Making TVUS shows 2.9x2.6 cm left cyst likely hemmorhagic. Given the nature of the cyst size and contents, I recommended to the patient to follow up with her OBGYN physician within 1 week after discharge for follow up care and management. Per the patient, she had one that she follows with. At the time of sign out, the patient had resolution of pain and was able to ambulate on her own volition. I told the patient if she is unable to see her OBGYN physician, that she needs to use the one we refer to her within 1 week for follow up. Discharge - Discharge Information Problems reviewed: Yes Clinical Impression/Diagnosis: Ovarian cyst Qualifiers: Laterality: left Qualified Code(s): N83.202 - Unspecified ovarian cyst, left side Condition: Stable Disposition: HOME - Follow up/Referral Referrals: Chris Villa MD [Staff Physician] - - Patient Discharge Instructions Patient Printed Discharge Instructions: DI for Ovarian Cyst Additional Instructions: PLEASE FOLLOW UP WITH [facility] AND UROLOGY within 3 days after discharge for follow up care and management. Please return to the emergency department if you have worsening symptoms or new concerning symptoms. Your ultrasound report shows that you have a possible hemorrhagic cyst on the left ovarian. No blood flow interruption to both of your ovaries. Thank you. - Post Discharge Activity Work/Back to School Note: Back to Work
== END 2020-05-20 01:36 | disposition home or self-care (01) ==
LOC: JER 18:07
PROC: 3E0333Z Introduction of Anti-inflammatory into Peripheral Vein, Percutaneous Approach (ICD-10-PCS; principal; 2020-05-19)
PROC: 3E033GC Introduction of Other Therapeutic Substance into Peripheral Vein, Percutaneous Approach (ICD-10-PCS; 2020-05-19)
DX: N83.202 Unspecified ovarian cyst, left side (principal)
CPT/HCPCS: 36415; 74176-TC; 76830-TC; 80053; 81003; 83690; 84702; 85025; 85610; 85730; 87086; 99285-25

== ENCOUNTER 2020-07-22 04:39 | Day surgery (SDC) | payer OTHER ==
--- OUTSIDE RECORDS SUMMARY | 2020-07-12 16:01 | XMS ---
:1975 Author Organization [facility] Care Team Providers Name Role Phone RAYMON CURRIE MD Unavailable Unavailable STEVE TREADWELL Unavailable Unavailable Josselin Unavailable Unavailable Josselin Unavailable Unavailable Josselin Unavailable Unavailable RIZQALLA Unavailable Unavailable RAKHLIN Unavailable Unavailable MARIFER De La Fuente Unavailable Unavailable MARIFER De La Fuente Unavailable Unavailable Lida Das PA-C Unavailable Lida Das PA-C Unavailable Lida Das PA-C Unavailable OSSIP, M Unavailable Unavailable NURSE Unavailable Unavailable EMERGENCY Unavailable Unavailable JONH BECERRA Unavailable Unavailable Re-disclosure Warning The records that you are about to access may contain information from federally- assisted alcohol or drug abuse programs. If such information is present, then the following federally mandated warning applies: This information has been disclosed to you from records protected by federal confidentiality rules (42 CFR part 2). The federal rules prohibit you from making any further disclosure of this information unless further disclosure is expressly permitted by the written consent of the person to whom it pertains or as otherwise permitted by 42 CFR part 2. A general authorization for the release of medical or other information is NOT sufficient for this purpose. The Federal rules restrict any use of the information to criminally investigate or prosecute any alcohol or drug abuse patient.The records that you are about to access may contain highly sensitive health information, the redisclosure of which is protected by Article 27-F of the [facility] Public Health law. If you continue you may haveaccess to information: Regarding HIV / AIDS; Provided by facilities licensed or operated by the [facility] Office of Mental Health; or Provided by the [facility] Office for People With Developmental Disabilities. If such information is present, then the following [facility] mandated warning applies: This information has been disclosed to you from confidential records which are protected by state law. State law prohibits you from making any further disclosure of this information without the specific written consent of the person to whom it pertains, or as otherwise permitted by law. Any unauthorized further disclosure in violation of state law may result in a fine or alf sentence or both. A general authorization for the release of medical or other information is NOT sufficient authorization for further disclosure. Encounters Encounter Providers Location Date Indications Data Source(s ) Outpatient Attender: SVEN GAGNON-ER 05/03/2020 kidney stones [facility] MARCOVICIAttender: 02:10:00 PM EDT DOCTOR - 05/03/2020 EMERGENCYAdmitter: 07:16:00 PM EDT SVEN ROBERTSONIConsultant: YANELIS OSMANConsultant: CONSULT NURSEConsultant: Gregory SchwabConsultant: DA WHITTENENConsultant: Lorelei CAICEDO kidney stones Patient discharged. Outpatient Attender: KEENAN LOMAXHEM-ER 04/24/2020 chest pain, [place] JAIMEAAttender: DOCTOR 09:22:00 PM EDT sob, h [facility] EMERGENCYAdmitter: KEENAN - 04/25/2020 ache MICHAELZQBETTYEAConsultant: RAYMON 02:04:00 AM EDT KUSH BURCIAGAonsultant: LEONOR DIAMONDConsultant: Jennifer Das PA-C chest pain, sob, head ache Patient discharged. Insurance Providers Payer name Policy type Policy ID Covered Covered libertarian's Policy P neli / Coverage libertarian ID relationship to [facility] Inf ormation type alcazar AFFINITY [id number] SP [id number] AFFINITY [id number] Patient is [id number] HEALTH PLAN Insured AFFINITY [id number] Patient is [id number] HEALTH PLAN Ins[place] [id number] [place] [id number] Insured MEDICAID [id number] SP [id number] [facility] [id number] SP [id number] Problems, Conditions, and Diagnoses Code Display Name Description Problem Type Effective Data Dates Source(s) N13.30 Unspecified UNSPECIFIED Diagnosis 05/08/2020 [place] hydronephrosis HYDRONEPHROSIS 07:39:00 AM Hospi quin EDT D25.9 Leiomyoma of LEIOMYOMA OF Diagnosis 05/08/2020 [place] uterus, unspecified UTERUS, UNSPECIFIED 07:39:0 0 AM Hospital EDT R10.9 Unspecified UNSPECIFIED Diagnosis 05/08/2020 [place] abdominal pain ABDOMINAL PAIN 07:39:00 AM Hospi quin EDT R20.0 Anesthesia of skin ANESTHESIA OF SKIN Diagnosis 0 [place] 12:49:00 PM Hospital EDT R25.2 Cramp and spasm CRAMP AND SPASM Diagnosis 04/29/2020 [place] 12:49:00 PM Hospital EDT R06.02 Shortness of breath SHORTNESS OF BREATH Diagnosis 020 [place] 12:49:00 PM Hospital EDT R51 Headache HEADACHE Diagnosis 04/29/2020 [place] 12:49:00 PM Hospital EDT R07.89 Other chest pain OTHER CHEST PAIN Diagnosis 04/29/2020 [place] 12:49:00 PM Hospital EDT Results ID Date Data Source [id number] 07/12/2020 03:33:00 PM EDT [facility] Received: 07/12/2020 at 06:03:00 QTE : [place], [address]Gaston MD Received: 07/12/2020 at 06:03:00 QTE : [place], [address]Gaston MD Received: 07/12/2020 at 06:03:00 QTE : [place], [address]Gaston MD Received: 07/12/2020 at 06:03:00 QTE : [facility], [address], [place], [address], Gaston Coronel MD Received: 07/12/2020 at 06:03:00 QTE : [facility], [address], [place], [address], Gaston Coronel MD Received: 07/12/2020 at 06:03:00 QTE : [facility], [address], [place], [address], Gaston Coronel MD Received: 07/12/2020 at 06:03:00 QTE : [facility], [place], [address], Gaston Coronel MD Received: 07/12/2020 at 06:03:00 QTE : [facility], [place], [address], Gaston Coronel MD Name Value Range Interpretation Description Data Sup porting Code Source(s) Document(s ) Cholesterol 204 <200 Above high [facility] [Mass/volume] mg/dL normal Diagnostics in Serum or Plasma Cholesterol in 62 mg/dL > OR = Normal (applies [facility] HDL 50 to non-numeric Diagnostics [Mass/volume] results) in Serum or Plasma Triglyceride 88 mg/dL <150 Normal (applies [facility] [Mass/volume] to non-numeric Diagnostics in Serum or results) Plasma Cholesterol in 123 Above high [facility] LDL mg/dL normal Diagnostics [Mass/volume] (calc) in Serum or Plasma by calculation Reference range: <100Desirable range <10 0 mg/dL for primary prevention;<70 mg/dL for patients with CHD or diabetic patientswi th > or = 2 CHD risk factors.LDL-C is now calculated using the JerSuzettecalc lation, which is a validated novel method providingbetter accuracy than the Friede jayden equation in theestimation of LDL-C.Jer SS et al. CHRISTINA. 2013;310(19 ): 9240-4741(http://education.Playdate App.com/faq/GWP749) Cholesterol.total/Cholesterol in 3.3 (calc) <5.0 Normal (applies [facility] HDL [Mass Ratio] in Serum or to non-numeric Diagnostics Plasma results) Cholesterol non HDL [Mass/volume] 142 mg/dL <130 Above high [facility] in Serum or Plasma (calc) normal Diagnostics For patients with diabetes plus 1 major ASCVD riskfactor, treating to a non-HDL-C goal of <100 mg/dL(LDL-C of <70 mg/dL) i s considered a therapeuticoption. ID Date Data Source [id number] 07/12/2020 03:33:00 PM EDT [facility] Received: 07/12/2020 at 06:03:00 QTE : [facility], [place], [address], Gaston Coronel MD Received: 07/12/2020 at 06:03:00 QTE : [facility], [address]Gaston MD Received: 07/12/2020 at 06:03:00 QTE : [facility], [address], Gaston Coronel MD Received: 07/12/2020 at 06:03:00 QTE : [facility], [address], Gaston Coronel MD Received: 07/12/2020 at 06:03:00 QTE : [facility], [address]Gaston MD Received: 07/12/2020 at 06:03:00 QTE : [facility], [address]Gaston MD Received: 07/12/2020 at 06:03:00 QTE : [facility] [place], [address]Gaston MD Received: 07/12/2020 at 06:03:00 QTE : [facility] [place], [address]Gaston MD Name Value Range Interpretation Description Data Source(s ) Supporting Code Document(s ) Thyrotropin 0.80 Normal (applies [facility] [Units/volume] mIU/L to non-numeric Diagnostic s in Serum or results) Plasma Reference Range > or = 20 Years 0.40-4.50 Ranges First trimester 0.26- 2.66 Second trimester 0.55-2.73 Third trimester 0.43-2.91 Thyroxine (T4) free 1.0 ng/dL 0.8-1.8 Normal (applies to [facility] [Mass/volume] in Serum non-numeric results) or Plasma ID Date Data Source [id number] 07/12/2020 03:33:00 PM EDT [facility] Received: 07/12/2020 at 06:03:00 QTE : [facility] [place], [address]Gaston MD Received: 07/12/2020 at 06:03:00 QTE : [facility] [place], [address]Gaston MD Received: 07/12/2020 at 06:03:00 QTE : [facility] [place], [address]Gaston MD Received: 07/12/2020 at 06:03:00 QTE : [facility], [address]Gaston MD Received: 07/12/2020 at 06:03:00 QTE : [facility], [address]Gaston MD Received: 07/12/2020 at 06:03:00 QTE : [facility] [place], [address]Gaston MD Received: 07/12/2020 at 06:03:00 QTE : [facility] [place], [address]Gaston MD Received: 07/12/2020 at 06:03:00 QTE : [facility], [place], [address], Gaston Coronel MD Name Value Range Interpretation Description Data Source(s ) Supporting Code Document(s ) SPECIMEN [facility] COMPROMISED Whole blood, unspun or partially spun ge l barrier tubewas received more than 6 hours since collection. Afalse elevation of K, Phos and LD as well as a falsedecrease in glucose may occur due to prolonged conta ctwith red cells. ID Date Data Source [id number] 07/12/2020 03:33:00 PM EDT [facility] Received: 07/12/2020 at 06:03:00 QTE : [facility], [place], [address], Gaston Coronel MD Received: 07/12/2020 at 06:03:00 QTE : [facility], [place], [address], Gaston Coronel MD Received: 07/12/2020 at 06:03:00 QTE : [facility], [place], [address], Gaston Coronel MD Received: 07/12/2020 at 06:03:00 QTE : [facility], [place], [address], Gaston Coronel MD Received: 07/12/2020 at 06:03:00 QTE : [facility], [place], [address]Gaston MD Received: 07/12/2020 at 06:03:00 QTE : [facility], [place], [address], Gaston Coronel MD Received: 07/12/2020 at 06:03:00 QTE : [facility], [place], [address]Gaston MD Received: 07/12/2020 at 06:03:00 QTE : [facility], [address], [place], [address], Gaston Coronel MD Name Value Range Interpretation Description Data Source(s ) Supporting Code Document(s ) Iron 123 40-190 Normal (applies [facility] [Mass/volume] mcg/dL to non-numeric Diagnostics in Serum or results) Plasma Iron binding 332 250-450 Normal (applies [facility] capacity mcg/dL to non-numeric Diagnostics [Mass/volume] (calc) results) in Serum or Plasma Iron 37 % 16-45 Normal (applies [facility] saturation (calc) to non-numeric Diagnostics [Mass results) Fraction] in Serum or Plasma ID Date Data Source [id number] 07/12/2020 03:33:00 PM EDT [facility] Received: 07/12/2020 at 06:03:00 QTE : [facility], [place], [address], Gaston Coronel MD Received: 07/12/2020 at 06:03:00 QTE : [facility], [place], [address], Gaston Coronel MD Received: 07/12/2020 at 06:03:00 QTE : [facility], [address], Gaston Coronel MD Received: 07/12/2020 at 06:03:00 QTE : [facility], [address], Gaston Coronel MD Received: 07/12/2020 at 06:03:00 QTE : [facility] [place], [address], Gaston Coronel MD Received: 07/12/2020 at 06:03:00 QTE : [facility], [place], [address], Gaston Coronel MD Received: 07/12/2020 at 06:03:00 QTE : [facility], [address], Gaston Coronel MD Received: 07/12/2020 at 06:03:00 QTE : [facility], [address], [place], [address], Gaston Coronel MD Name Value Range Interpretation Description Data Source(s ) Supporting Code Document(s ) Glucose 86 mg/dL 65-99 Normal (applies to [facility] [Mass/volum non-numeric Diagnostics e] in Serum results) or Plasma Fasting reference interval Urea nitrogen 16 mg/dL 7-25 Normal (applies [facility] [Mass/volume] in Serum to non-numeric Di agnostics or Plasma results) Creatinine 0.70 mg/dL 0.50-1.10 Normal (applies [facility] [Mass/volume] in Serum to non-numeric Di agnostics or Plasma results) Glomerular filtration 104 > OR = 60 Normal (applies Qu est rate/1.73 sq mL/min/1.73m2 to non-numeric Diagnost ics M.predicted [Volume results) Rate/Area] in Serum, Plasma or Blood by Creatinine-based formula (MDRD) Glomerular filtration 120 > OR = 60 Normal (applies Qu est rate/1.73 sq M mL/min/1.73m2 to non-numeric Diagno stics predicted among blacks results) [Volume Rate/Area] in Serum or Plasma by Creatinine-based formula (MDRD) Urea NOT APPLICABLE 6-22 [facility] nitrogen/Creatinine (calc) Diagnostic s [Mass Ratio] in Serum or Plasma Sodium [Moles/volume] 140 mmol/L 135-146 Normal (applies Q uest in Serum or Plasma to non-numeric Diagno stics results) Potassium 4.2 mmol/L 3.5-5.3 Normal (applies [facility] [Moles/volume] in to non-numeric Diagnos tics Serum or Plasma results) Chloride 105 mmol/L 98-110 Normal (applies [facility] [Moles/volume] in to non-numeric Diagnos tics Serum or Plasma results) Carbon dioxide, total 26 mmol/L 20-32 Normal (applies Qu est [Moles/volume] in to non-numeric Diagnos tics Serum or Plasma results) Calcium [Mass/volume] 9.0 mg/dL 8.6-10.2 Normal (applies Qu est in Serum or Plasma to non-numeric Diagno stics results) Protein [Mass/volume] 6.7 g/dL 6.1-8.1 Normal (applies Qu est in Serum or Plasma to non-numeric Diagno stics results) Albumin [Mass/volume] 4.1 g/dL 3.6-5.1 Normal (applies Qu est in Serum or Plasma to non-numeric Diagno stics results) Globulin [Mass/volume] 2.6 g/dL (calc) 1.9-3.7 Normal (applies [facility] in Serum by to non-numeric Diagnostics calculation results) Albumin/Globulin [Mass 1.6 (calc) 1.0-2.5 Normal (applies [facility] Ratio] in Serum or to non-numeric Diagno stics Plasma results) Bilirubin.total 0.3 mg/dL 0.2-1.2 Normal (applies [facility] [Mass/volume] in Serum to non-numeric Di agnostics or Plasma results) Alkaline phosphatase 64 U/L 31-125 Normal (applies Que st [Enzymatic to non-numeric Diagnostics activity/volume] in results) Serum or Plasma Aspartate 15 U/L 10-35 Normal (applies [facility] aminotransferase to non-numeric Diagnost ics [Enzymatic results) activity/volume] in Serum or Plasma Alanine 13 U/L 6-29 Normal (applies [facility] aminotransferase to non-numeric Diagnost ics [Enzymatic results) activity/volume] in Serum or Plasma ID Date Data Source [id number] 07/12/2020 03:33:00 PM EDT [facility] Received: 07/12/2020 at 06:03:00 QTE : [facility] [place], [address], Gaston Coronel MD Received: 07/12/2020 at 06:03:00 QTE : [facility] [place], [address]Gaston MD Received: 07/12/2020 at 06:03:00 QTE : [place], [address]Gaston MD Received: 07/12/2020 at 06:03:00 QTE : [place], [address]Gaston MD Received: 07/12/2020 at 06:03:00 QTE : [facility], [address], [place], [address], Gaston Coronel MD Received: 07/12/2020 at 06:03:00 QTE : [facility], [address], [place], [address], Gaston Coronel MD Received: 07/12/2020 at 06:03:00 QTE : [facility], [address], [place], [address], Gaston Coronel MD Received: 07/12/2020 at 06:03:00 QTE : [facility], [address], [place], [address], Gaston Coronel MD Name Value Range Interpretation Description Data Sup porting Code Source(s) Document(s ) Leukocytes 5.7 3.8-10. Normal (applies [facility] [#/volume] in Thousand 8 to non-numeric Diagnostics Blood by /uL results) Automated count Erythrocytes 3.66 3.80-5. Below low normal [facility] [#/volume] in Million/ 10 Diagnostics Blood by uL Automated count Hemoglobin 11.0 11.7-15 Below low normal [facility] [Mass/volume] in g/dL .5 Diagnostics Blood Hematocrit 34.2 % 35.0-45 Below low normal [facility] [Volume .0 Diagnostics Fraction] of Blood by Automated count Erythrocyte mean 93.4 fL 80.0-10 Normal (applies [facility] corpuscular 0.0 to non-numeric Diagnostics volume [Entitic results) volume] by Automated count Erythrocyte mean 30.1 pg 27.0-33 Normal (applies [facility] corpuscular .0 to non-numeric Diagnostics hemoglobin results) [Entitic mass] by Automated count Erythrocyte mean 32.2 32.0-36 Normal (applies [facility] corpuscular g/dL .0 to non-numeric Diagnostics hemoglobin results) concentration [Mass/volume] by Automated count Erythrocyte 13.6 % 11.0-15 Normal (applies [facility] distribution .0 to non-numeric Diagnostics width [Ratio] by results) Automated count Platelets 428 140-400 Above high [facility] [#/volume] in Thousand normal Diagnostics Blood by /uL Automated count Platelet mean 12.4 fL 7.5-12. Normal (applies [facility] volume [Entitic 5 to non-numeric Diagnosti cs volume] in Blood results) by Conner Neutrophils 2075 1500-78 Normal (applies [facility] [#/volume] in cells/uL 00 to non-numeric Diagnostics Blood by results) Automated count Lymphocytes 2531 850-390 Normal (applies [facility] [#/volume] in cells/uL 0 to non-numeric Diagnostics Blood by results) Automated count Monocytes 787 200-950 Normal (applies [facility] [#/volume] in cells/uL to non-numeric Diagnostics Blood by results) Automated count Eosinophils 200 15-500 Normal (applies [facility] [#/volume] in cells/uL to non-numeric Diagnostics Blood by results) Automated count Basophils 108 0-200 Normal (applies [facility] [#/volume] in cells/uL to non-numeric Diagnostics Blood by results) Automated count Neutrophils/100 36.4 % 38-80 Below low normal [facility] leukocytes in Diagnostics Blood by Automated count Lymphocytes/100 44.4 % 15-49 Normal (applies [facility] leukocytes in to non-numeric Diagnostics Blood by results) Automated count Monocytes/100 13.8 % 0-13 Above high [facility] leukocytes in normal Diagnostics Blood by Automated count Eosinophils/100 3.5 % 0-8 Normal (applies [facility] leukocytes in to non-numeric Diagnostics Blood by results) Automated count Basophils/100 1.9 % 0-2 Normal (applies [facility] leukocytes in to non-numeric Diagnostics Blood by results) Automated count ID Date Data Source [id number] 07/12/2020 03:33:00 PM EDT [facility] Received: 07/12/2020 at 06:03:00 QTE : [facility] [place], [address], Gaston Coronel MD Received: 07/12/2020 at 06:03:00 QTE : [facility], [address], Gaston Coronel MD Received: 07/12/2020 at 06:03:00 QTE : [facility] [place], [address], Gaston Coronel MD Received: 07/12/2020 at 06:03:00 QTE : [facility], [place], [address], Gaston Coronel MD Received: 07/12/2020 at 06:03:00 QTE : [facility], [address], [place], [address], Gaston Coronel MD Received: 07/12/2020 at 06:03:00 QTE : [facility], [address], [place], [address], Gaston Coronel MD Received: 07/12/2020 at 06:03:00 QTE : [facility], [address], [place], [address], Gaston Coronel MD Received: 07/12/2020 at 06:03:00 QTE : [facility], [address], [place], [address], Gaston Coronel MD Name Value Range Interpretation Description Data Source(s ) Supporting Code Document(s ) Ferritin 8 ng/mL 16-232 Below low normal [facility] [Mass/volume Diagnostics ] in Serum or Plasma ID Date Data Source [id number] 07/12/2020 03:33:00 PM EDT [facility] Received: 07/12/2020 at 06:03:00 QTE : [facility], [address], [place], [address], Gaston Coronel MD Received: 07/12/2020 at 06:03:00 QTE : [facility], [place], [address], Gaston Coronel MD Received: 07/12/2020 at 06:03:00 QTE : [facility], [place], [address], Gaston Coronel MD Received: 07/12/2020 at 06:03:00 QTE : [facility], [place], [address], Gaston Coronel MD Received: 07/12/2020 at 06:03:00 QTE : [facility], [address], [place], [address], Gaston Coronel MD Received: 07/12/2020 at 06:03:00 QTE : [facility], [place], [address]Gaston MD Received: 07/12/2020 at 06:03:00 QTE : [facility], [place], [address]Gaston MD Received: 07/12/2020 at 06:03:00 QTE : [facility], [place], [address], Gaston Coronel MD Name Value Range Interpretation Description Data Source(s ) Supporting Code Document(s ) Hemoglobin 5.4 % of <5.7 Normal (applies [facility] A1c/Hemoglobin total to non-numeric Diagnostic s .total in Hgb results) Blood For the purpose of screening for the pre sence ofdiabetes:<5.7% Consistent with the absence of diabetes5.7-6.4% Consi stent with increased risk for diabetes (prediabetes)> or =6.5% Consistent with diabetesThis assay result is consistent with a decreased riskof diabetes.Current ly, no consensus exists regarding use ofhemoglobin A1c for diagnosis of diabet es in children.According to [place] Diabetes Association (ADA)guidelines, hemoglobin A1c <7.0% represents optimalcontrol in non- diabetic patients. Differen tmetrics may apply to specific patient populations.Standards of Medical Care in Diabetes(ADA). ID Date Data Source [id number] 06/19/2020 12:59:00 PM EDT [facility] Name Value Range Interpretation Description Data Sup porting Code Source(s) Document(s ) SARS [facility] coronavirus 2 RNA This lab was ordered by [facility] and reported by [facility]. ID Date Data Source [id number] 05/04/2020 08:43:39 AM EDT Nae Lemaita l Exam: Transvaginal pelvic ultrasound wit h duplex Doppler evaluation.History: Pelvic pain. Fibroids.Comparison: CT pelvis fro m 05/03/2020..Report:LMP 04/13 to 04/21/2020 Uterus is retroverted and measures in 9. 6 cm, in length, 7.5 cm in transverse and 6.7 cm in AP dimension. There is a 4.5 x 3 x 2 cm left fundal subserosal fibroid. There is a 2 cm right anterior uterine body fi broid. There is myometrial textural heterogeneity consistent with nondiscret e fibroids.The endometrium is partially obscured by fibroids and where visualize d measures 13 mm in AP dimension, with a menstrual cycle phase appropriate trilam inar appearance.There is a 2 cm featureless right ovarian cyst. The right ovary incl uding the cyst measures 4.6 x 2.5 x 2.5cm. There is a 3.5 x 3 x 2.5 cm left ovarian cyst filled with homogeneous low level echoes. The left ovary containing a comp tyshawn cyst measures4.5 x 3.5 x 3.2 cm.Duplex Doppler evaluation of both ovaries demon strates arterial and venous color and Doppler spectral flow.There is a small amount of free fluid in the pelvis.Impression: There is a fibroid uterus.There is a 3.5 cm co mplex left ovarian cyst with a differential diagnosis of endometrioma versus degener ating hemorrhagic physiological cyst, the former being favored.There is a 2 cm fea tureless right ovarian cyst, likely physiological.Given the complex left ova darrian cyst, consideration of follow-up study in 2-3 months is recommended and if pers istent can be further evaluated with pre and postcontrast pelvic MRI.PRELIMINARY REPO RT:Preliminary report created by: PATRICIA Whitakerreltrenainary report time: 6:37 PMPelvic ultrasound: Uterine fibroids. Ovarian cysts. Flow seen in anika th ovaries. Small amount of free pelvic fluid. Name Value Range Interpretation Code Description Data Janee rce(s) Supporting Document(s ) ID Date Data Source [id number] 05/03/2020 04:43:22 PM EDT [facility] Exam: Noncontrast CAT scan of the abdome n and pelvis.History: Bilateral flank painTechnique: Multiple sequential axial images are obtained from the domes of the diaphragms through the pubic symphysis w ithout administration of either intravenous or oral contrast material.One or more of the following dose reduction techniques were used: automated exposure control, adjust ment of the mA or kV according to patient size, use of iterative reconstruction te [place]nique.Findings: The visualized lung bases are clear.The liver, spleen, stomach, pa ncreas and adrenal glands are unremarkable. The patient is status post a cholecystec kermit.There is mild to moderate right hydroureteronephrosis with dilatation of the right ureter to the level of the pelvis. No discrete distal ureteral stone. No le ft-sided hydronephrosis. No discrete renal mass. No urinary calculi. No retroperito alessandra mass/lymphadenopathy.Unremarkable bowel loops. Normal appendix.Evaluation of the pelvis demonstrates an enlarged uterus likely related to fibroids. The left ova ry appears enlarged. No discrete distal ureteral or bladder calculi. Normal urin tabatha bladder and bowel loops. There is a small amount of ascites.There is marked L5-S1 degenerative disc disease.Impression: Mild to moderate right hydroureteronephrosis [place] secondary to the patient's fibroid uterus. No discrete distal ureteral ston e. Unremarkable left kidney.Probable fibroid uterus. Suggestion of an enlarged left o vary. Precautionary further evaluation with a pelvic ultrasound. Name Value Range Interpretation Code Description Data Janee rce(s) Supporting Document(s ) ID Date Data Source [id number] 05/05/2020 09:18:00 AM EDT [facility] Name Value Range Interpretation Description Data Sup porting Code Source(s) Document(s ) D/T RECEIVED 05/03/2020 [place] 15:38:26 Hospital D/T STARTED 05/04/2020 [place] 09:38:39 Hospital SOURCE: URINE [place] CLEAN [facility] CATCH STATUS FINAL [place] REPORT [facility] FINAL * [facility] =>10,000 <100,000 CFU/MLUROGENITAL AND/O R SKIN CONTAMINATION; PLEASE NOTIFYMICROBIOLOGY WITHIN 3 DAYS TO DISC USS, IF NECESSARY. ID Date Data Source [id number] 05/03/2020 04:36:00 PM EDT [facility] Name Value Range Interpretation Description Data Sup porting Code Source(s) Document(s ) U WBC 0-2 /HPF 0-4 [facility] U RBC 5-9 /HPF 0-2 * [facility] SQ EPI 11-14 /HPF 0-10 * [facility] BACTERIA MODERATE: NONE-FEW * [place] 21-50/hpf Hospital /HPF MUCUS MODERATE NONE-FEW * [place] [facility] Hospital ID Date Data Source [id number] 05/03/2020 03:48:00 PM EDT [facility] Name Value Range Interpretation Description Data Sup porting Code Source(s) Document(s ) U COLOR Yellow [facility] U APPEAR Clear [facility] U GLUC Negative NEG [place] MG/DL Hospital U BILI Negative [facility] U KETONE Negative NEG [place] MG/DL Hospital U SG 1.020 1.003-1. [place] 030 Hospital U BLOOD Small NEG * [facility] U PH 5.0 5.0-7.5 [facility] U PROTEIN Negative NEG [place] MG/DL [facility] U UROBILI 1.0 EU/DL 0.2-1.0 [facility] U NITRITE Negative [facility] U LEUK EST Negative [facility] ID Date Data Source [id number] 05/03/2020 03:36:00 PM EDT [facility] Name Value Range Interpretation Code Description Data Janee rce(s) Supporting Document(s ) APTT 30.3 SEC 23.3-32.5 [facility] This test is used to monitor H eparin Therapy ID Date Data Source [id number] 05/03/2020 03:36:00 PM EDT [facility] Name Value Range Interpretation Code Description Data Janee rce(s) Supporting Document(s ) . * [facility] INR Range: 2.0 - 3.0 STD Dose: P rophylaxis and treatment of venous thrombosis, pulmonary embo lism or prevention of systemic embolism. INR Range: 2.5 - 3.5 High Dose: High Risk patients with mechanical heart valves. INR 1.05 0.90-1.10 [facility] . * [facility] . PT 11.1 SEC 9.6-11.8 [facility] This test is used to monitor Oral Anticoagulant Therapy ID Date Data Source [id number] 05/03/2020 03:33:00 PM EDT [facility] Name Value Range Interpretation Description Data Sup porting Code Source(s) Document(s ) GLUCOSE 90 MG/DL 70-110 [facility] BUN 12 MG/DL 6-22 [facility] CREATININE 0.82 0.50-1.2 [place] MG/DL 0 Hospital SODIUM 138 135-145 [place] MMOL/L Hospital POTASSIUM 3.9 3.5-5.1 [place] mmol/L [facility] CHLORIDE 105 98-106 [place] MMOL/L [facility] CO2 25 20-29 [place] MMOL/L [facility] ANION GAP 8 MMOL/L 7-16 [facility] CALCIUM 9.0 8.7-10.7 [place] mg/dL [facility] TOT PROT 6.9 G/DL 6.1-8.0 [facility] ALBUMIN 4.2 G/DL 3.5-4.8 [facility] GLOBULIN 2.7 G/DL 1.3-4.5 [facility] BILIRUBIN,TOTA 0.3 0.3-1.2 [place] L mg/dL [facility] ALK PHOS 60 U/L 50-136 [facility] SGOT (AST) 15 U/L 8-42 [facility] SGPT (ALT) 8 U/L 30-65 Below low normal [facility] eGFR >60 ">60.0" [facility] mL/min./1.73 square meter eGFR IF >60 ">60.0" [facility] mL/min./1.73 square meter BILIRUBIN,DIRECT <0.2 MG/DL 0.0-0.3 [facility] Date Data Source [id number] 05/03/2020 03:33:00 PM EDT [facility] Name Value Range Interpretation Code Description Data Supporting Source(s) Document(s ) HCG STAT <5.0 "<5.0" [place] MIU/ML [facility] Human Chorionic Gonado tropin Approximate Gestational Age Approximate HCG Range 3 - 4 weeks 5.4 - 708 5 - 6 weeks 217 - 82323 7 - 8 weeks 9349 - 483622 9 - 10 weeks 81989 - 801342 12 - 14 weeks 01939 - 27104 15 - 16 weeks 57888 - 82573 17 - 18 weeks 1814 - 94085 5-10 mIU/mL range can occur in normal non- subject s. Resultsin this range should be correlated with the patient's clinicalcondition. ID Date Data Source [id number] 05/03/2020 03:15:00 PM EDT [facility] Name Value Range Interpretation Description Data Sup porting Code Source(s) Document(s ) WHITE BLOOD 6.6 4.0-11.5 [place] CELL COUNT K/[facility] RBC 3.80 4.20-5.4 Below low normal [address] HEMOGLOBIN 11.6 12.0-16. Below low normal [place] g/dL [address] [place] [address] HEMATOCRIT 35.9 % 37.0-47. Below low normal [address] MCV 94.5 FL 81.0-99. [address] MCH 30.5 PG 27.0-31. [address] MCHC 32.3 33.0-37. Below low normal [place] G/DL [address] [place] [address] RDW 14.7 % 11.5-14. Above high normal [address] PLT 392 140-440 [facility] MPV 10.5 FL 7.4-10.4 Above high normal [facility] NEUT% 53 % [facility] IMM GRAN% 0 % [facility] LYMPH% 31 % [facility] MONO% 13 % [facility] EOS% 2 % [facility] BASO% 1 % [facility] NEUT ABS 3.5 1.7-8.6 [place] X10E3/[facility] IMM GRAN ABS 0.0 0.0-0.1 [place] x10E3/uL Hospital LYMPH ABS 2.1 0.8-5.9 [place] X10E3/uL Hospital MONO ABS 0.8 0.0-1.0 [place] X10E3/ Hospital EOS ABS 0.1 0.0-0.7 [place] X10E3/uL Hospital BASO ABS 0.1 0.0-0.2 [place] X10E3/ Hospital ID Date Data Source [id number] 04/25/2020 10:58:51 AM EDT [facility] EXAM: CTA CHEST WITH CONTRAST (CTPA)Hist ory: Chest painCorrelative studies: No relevant studiesTechnique: IV contrast: With contrast timed for peak pulmonary arterial enhancementSlice thickness: 2.5 mmRange: Lung apex through upper abdomenPlanes presented: Axial and Coron al/Sagittal thick section 3D MIPDose Reduction: One or more of the following dose reduction techniques were used: automated exposure control, adjustment o f the mA and/or kV according to patient size, use of iterative reconstruction techniqu eFindings: Pulmonary arteries: There is no pulmonary embolism within the central an d major segmental pulmonary arteries.Lungs: There is a 3 mm right upper lobe calcifi ed granuloma image 32. No other nodules identified. There is no infiltratePleura l effusion: NonePneumothorax: NoneAirways: No bronchiectasis.Mediastinum: No mass or l ymphadenopathy.Mediastinal vessels: No aortic aneurysm or dissection.Heart: Not enlarg ed.Axilla: No lymphadenopathy.Adrenals: No nodule.Upper abdomen: NormalImpression: No evidence for pulmonary embolism within the central and major segmental pulmonar y arteries. Name Value Range Interpretation Code Description Data Janee rce(s) Supporting Document(s ) ID Date Data Source [id number] 04/25/2020 09:39:11 AM [facility]: DUPLEX DOPPLER BILATERAL LOWER EXT REMITY HISTORY: Bilateral leg painFINDINGS: Right:Common femoral vein: There is no D VT. There are normal venous waveforms.Femoral vein: There is no DVT. There are normal venous waveforms.Popliteal vein: There is no DVT. There are normal venous waveforms.Calf veins: There is no thrombosis in the posterior tibial and p eroneal calf veins.Superficial veins: There is no thrombus in the greater saphenous vein including the saphenofemoral junction.Left:Common femoral vein: There is no DVT. There are normal venous waveforms.Femoral vein: There is no DVT. There are normal venous waveforms.Popliteal vein: There is no DVT. There are normal venous waveforms.Calf veins: There is no thrombosis in the posterior tibial and p eroneal calf veins.Superficial veins: There is no thrombus in the greater saphenous vein including the saphenofemoral junction.Popliteal fossa: There is no Ba ker's cyst.IMPRESSION:There is no thrombosis as detailed above. Name Value Range Interpretation Code Description Data Janee rce(s) Supporting Document(s ) ID Date Data Source [id number] 04/24/2020 11:33:00 PM EDT [facility] Name Value Range Interpretation Description Data Sup porting Code Source(s) Document(s ) GLUCOSE 97 MG/DL 70-110 [facility] BUN 16 MG/DL 6-22 [facility] CREATININE 0.67 0.50-1.2 [place] MG/DL 0 [facility] SODIUM 136 135-145 [place] MMOL/L [facility] POTASSIUM 4.0 3.5-5.1 [place] mmol/L [facility] CHLORIDE 102 98-106 [place] MMOL/L [facility] CO2 24 20-29 [place] MMOL/L [facility] ANION GAP 10 7-16 [place] MMOL/L [facility] CALCIUM 8.9 8.7-10.7 [place] mg/dL [facility] TOT PROT 6.7 G/DL 6.1-8.0 [facility] ALBUMIN 4.2 G/DL 3.5-4.8 [facility] GLOBULIN 2.5 G/DL 1.3-4.5 [facility] BILIRUBIN,TOTA <0.2 0.3-1.2 Below low normal [facility] mg/dL [facility] ALK PHOS 63 U/L 50-136 [facility] SGOT (AST) 16 U/L 8-42 [facility] SGPT (ALT) 11 U/L 30-65 Below low normal [facility] eGFR >60 ">60.0" [facility] mL/min./1.73 square meter eGFR IF >60 ">60.0" [facility] mL/min./1.73 square meter BILIRUBIN,DIRECT <0.2 MG/DL 0.0-0.3 [facility] Date Data Source [id number] 04/24/2020 11:33:00 PM EDT [facility] Name Value Range Interpretation Description Data Sup porting Code Source(s) Document(s ) TROPONIN I <0.3 "<0.3" [place] ng/ml Hospital ID Date Data Source [id number] 04/24/2020 11:33:00 PM EDT [facility] Name Value Range Interpretation Code Description Data Supporting Source(s) Document(s ) HCG STAT <5.0 "<5.0" [place] MIU/ML [facility] Human Chorionic Gonado tropin Approximate Gestational Age Approximate HCG Range 3 - 4 weeks 5.4 - 708 5 - 6 weeks 217 - 53007 7 - 8 weeks 4059 - 901032 9 - 10 weeks 44723 - 128650 12 - 14 weeks 96155 - 79816 15 - 16 weeks 68018 - 01924 17 - 18 weeks 3696 - 32521 5-10 mIU/mL range can occur in normal non- subject s. Resultsin this range should be correlated with the patient's clinicalcondition. ID Date Data Source [id number] 04/24/2020 10:37:00 PM EDT [facility] Name Value Range Interpretation Code Description Data [facility](s) Supporting Document(s ) . * [facility] INR Range: 2.0 - 3.0 STD Dose: P rophylaxis and treatment of venous thrombosis, pulmonary embo lism or prevention of systemic embolism. INR Range: 2.5 - 3.5 High Dose: High Risk patients with mechanical heart valves. INR 1.01 0.90-1.10 [facility] . * [facility] . PT 10.7 SEC 9.6-11.8 [facility] This test is used to monitor Oral Anticoagulant Therapy ID Date Data Source [id number] 04/24/2020 10:37:00 PM EDT [facility] Name Value Range Interpretation Code Description Data [facility] rce(s) Supporting Document(s ) APTT 24.0 SEC 23.3-32.5 [facility] This test is used to monitor H eparin Therapy ID Date Data Source [id number] 04/24/2020 10:37:00 PM EDT [facility] Name Value Range Interpretation Description Data Sup porting Code Source(s) Document(s ) D-DIMER 0.75 "<0.50" Above high normal [place] (PE/DVT) mg/LFEU Hospital According to the assay roof truss builder's pu blished package insert, anormal (<0.50 mg/L FEU) D-dimer result in conjunction with a non-highclinical probability assessment, excludes deep vein thrombosis (DVT)and p ulmonary embolism (PE) with high sensitivity. D-dimer values increase with age and thi s can make VTE exclusion ofan older population difficult. To address this, vera ruiz [employer], based on best available evidence and recent guide lines,recommends that clinicians use age-adjusted D-dimer thresholds inpatien ts greater than 50 years of age with; a) a low probability ofPE who do not meet all Pulmonary Embolism Rule Out Criteria, orb) in those with intermediate probability o f PE. The formula for anage-adjusted D-dimer cut-off is "age/100". For example, a 60 year oldpatient would have an age-adjusted cut-off of 0.60 mg/L FEU and an80 year o ld 0.80 mg/L FEU. ID Date Data Source [id number] 04/24/2020 10:20:00 PM EDT [facility] Name Value Range Interpretation Description Data Sup porting Code Source(s) Document(s ) WHITE BLOOD 8.1 4.0-11.5 [place] [facility] RBC 3.40 4.20-5.4 Below low normal [facility]/[address] HEMOGLOBIN 10.6 12.0-16. Below low normal [place] g/dL [address] [place] [address] HEMATOCRIT 32.5 % 37.0-47. Below low normal [address] MCV 95.6 FL 81.0-99. [address] MCH 31.2 PG 27.0-31. Above high normal [address] MCHC 32.6 33.0-37. Below low normal [place] G/DL Hospital RDW 14.8 % 11.5-14. Above high normal [address] PLT 377 140-440 [facility] MPV 11.0 FL 7.4-10.4 Above high normal [facility] NEUT% 52 % [facility] IMM GRAN% 0 % [facility] LYMPH% 31 % [facility] MONO% 14 % [facility] EOS% 2 % [facility] BASO% 1 % [facility] NEUT ABS 4.1 1.7-8.6 [place] 175420/[facility] IMM GRAN ABS 0.0 0.0-0.[address] LYMPH ABS 2.5 0.8-5.[address] MONO ABS 1.1 0.0-1.0 Above high normal [address] EOS ABS 0.2 0.0-0.[address] BASO ABS 0.1 0.0-0.[address] Procedure
[2020-07-19 15:05] VITALS: BMI 22.1
--- OUTSIDE RECORDS SUMMARY | 2020-07-22 04:43 | XMS ---
:1975 Author Organization [facility] Care Team Providers Name Role Phone RAYMON CURRIE MD Unavailable Unavailable STEVE TREADWELL Unavailable Unavailable Josselin Unavailable Unavailable Josselin Unavailable Unavailable Josselin Unavailable Unavailable RIZQALLA Unavailable Unavailable RAKHLIN Unavailable Unavailable MARIFER De La Fuente Unavailable Unavailable MARIFER De La Fuente Unavailable Unavailable Lida Das PA-C Unavailable Lida Das PA-C Unavailable Lida Das PA-C Unavailable Sigifredo OSMAN Unavailable Unavailable NURSE Unavailable Unavailable EMERGENCY Unavailable [...] is protected by Article 27-F of the [facility] Public Health law. If you continue you may haveaccess to information: Regarding HIV / AIDS; Provided by facilities licensed or operated by the [facility] Office of Mental Health; or Provided by the [facility] Office for People With Developmental Disabilities. If such information is present, then the following [facility] mandated warning applies: This information has been [...] law may result in a fine or senior living sentence or both. A general authorization for the release of medical or other information is NOT sufficient authorization for further disclosure. Encounters Encounter Providers Location Date Indications Data Source(s ) Outpatient Attender: SVEN LOMAXHEM-ER 05/03/2020 kidney stones [facility] MARCOVICIAttender: 02:10:00 PM EDT DOCTOR - 05/03/2020 EMERGENCYAdmitter: 07:16:00 PM EDT SVEN ROBERTSONIConsultant: YANELIS OSMANConsultant: CONSULT NURSEConsultant: Gregory SchwabConsultant: DA WHITTENENConsultant: Lorelei CAICEDO kidney stones Patient discharged. Outpatient Attender: KEENAN LOMAXHEM-ER 04/24/2020 chest pain, [place] JAIMEAAttender: DOCTOR 09:22:00 PM EDT sob, h [facility] EMERGENCYAdmitter: KEENAN - 04/25/2020 ache JAIMEAConsultant: RAYMON 02:04:00 AM EDT KUSH MDConsultant: LEONOR DIAMONDConsultant: Jennifer Das PA-C chest pain, sob, head ache Patient discharged. Insurance Providers Payer name Policy type Policy ID Covered Covered democrat's Policy P neli / Coverage democrat ID relationship to Alcazar Inf ormation type alcazar AFFINITY [id number] SP [id number] AFFINITY [id number] SP [id number] AETNA O [id number] AFFINITY [id number] Patient is [id number] HEALTH PLAN Insured AFFINITY [id number] Patient is [id number] HEALTH PLAN [place] [id number] [place] [id number] Ins[place] MEDICAID [id number] SP [id number] Problems, Conditions, and Diagnoses Code Display Name Description Problem Type Effective Data Dates Source(s) N13.30 Unspecified UNSPECIFIED Diagnosis 05/08/2020 [place] hydronephrosis HYDRONEPHROSIS 07:39:00 AM Hospi quin EDT D25.9 Leiomyoma of LEIOMYOMA OF Diagnosis 05/08/2020 [place] uterus, unspecified UTERUS, UNSPECIFIED 07:39:0 0 AM Hospital EDT R10.9 Unspecified UNSPECIFIED Diagnosis 05/08/2020 [place] abdominal pain ABDOMINAL PAIN 07:39:00 AM Hospi quin EDT R20.0 Anesthesia of skin ANESTHESIA OF SKIN Diagnosis 0 [place] 12:49:00 PM Hospital EDT R25.2 Cramp and spasm CRAMP AND SPASM Diagnosis 04/29/2020 [place] 12:49:00 PM Hospital EDT R06.02 Shortness of breath SHORTNESS OF BREATH Diagnosis 020 [place] 12:49:00 PM Hospital EDT R51 Headache HEADACHE Diagnosis 04/29/2020 [place] 12:49:00 PM Hospital EDT R07.89 Other chest pain OTHER CHEST PAIN Diagnosis 04/29/2020 [place] 12:49:00 PM Hospital EDT Results ID Date Data Source [id number] 07/18/2020 09:20:00 AM EDT [facility] Name Value Range Interpretation Description Data Sup porting Code Source(s) Document(s ) SARS [facility] coronavirus 2 RNA This lab was ordered by [facility] and reported by [facility]. ID Date Data Source [id number] 07/13/2020 03:21:00 PM EDT [facility] Received: 07/13/2020 at 02:20:00 QTE : [facility] [place], [place], [address], Gaston Coronel MD Name Value Range Interpretation Description Data Source(s ) Supporting Code Document(s ) O[facility] and [facility] Diagnostics identified in Stool by Trichrome stain OVA AND PARASITES, CONC AND PERM SMEAR Micro Number: [id number] Test Status: Final Specimen Source: FECES Spe cimen Quality: Adequate CONCENTRATION 1: No ova or parasites seen TRICHROME 1: No ova or parasites seen Routine Ova and Parasite exam may no t detect some parasites that occasionally cause diarrheal illness. Test code(s) 21969 (Cryptosporidium Ag., DFA) and/or 17830 (Cyclospora and Isospora Exam) may be ordered to detect these parasites. One negative sample does not necessari ly rule out the presence of a parasitic infection. For additional information, please refer to https://edu cation.Mebelrama/faq/IXB631 (This link is being provide d for informational/ educational purposes only.) ID Date Data Source [id number] 07/12/2020 03:33:00 PM EDT [facility] Received: 07/12/2020 at 06:03:00 QTE : [facility] [place], [address], Gaston Coronel MD Received: 07/12/2020 at 06:03:00 QTE : [facility] [place], [address], Gaston Coronel MD Received: 07/12/2020 at 06:03:00 QTE : [facility] [place], [address]Gaston MD Received: 07/12/2020 at 06:03:00 QTE : [facility] [place], [address]Gaston MD Received: 07/12/2020 at 06:03:00 QTE : [facility], [address]Gaston MD Received: 07/12/2020 at 06:03:00 QTE : [facility], [address]Gaston MD Received: 07/12/2020 at 06:03:00 QTE : [facility], [address], [place], [address], Gaston Coronel MD Received: 07/12/2020 at 06:03:00 QTE : [facility], [address] [place], [place], [address], Gaston Coronel MD Name Value Range Interpretation [...] risk factors.LDL-C is now calculated using the Selincalcu lation, which is a validated novel method providingbetter accuracy than the Friede jayden equation in theestimation of LDL-C.Jer SS et al. CHRISTINA. 2013;310(19 ): 3591-3508(http://education.N42DiagnVenatoRx Pharmaceuticals.com/faq/VVB535) Cholesterol.total/Cholesterol in 3.3 (calc) <5.0 Normal (applies [...] considered a therapeuticoption. ID Date Data Source [id number] 07/12/2020 03:33:00 PM EDT [facility] Received: 07/12/2020 at 06:03:00 QTE : [facility] [place], [place], [address]Gaston MD Received: 07/12/2020 at 06:03:00 QTE : [facility], [address], [place], [address], Gaston Coronel MD Received: 07/12/2020 at 06:03:00 QTE : [facility], [address], [place], [address], Gaston Coronel MD Received: 07/12/2020 at 06:03:00 QTE : [facility], [address], [place], [address], Gaston Coronel MD Received: 07/12/2020 at 06:03:00 QTE : [facility], [address], [place], [address]Gaston MD Received: 07/12/2020 at 06:03:00 QTE : [facility], [address], [place], [address]Gaston MD Received: 07/12/2020 at 06:03:00 QTE : [facility], [address], [place], [address]Gaston MD Received: 07/12/2020 at 06:03:00 QTE : [facility], [place], [address], Gaston Coronel MD Name Value Range Interpretation [...] results) or Plasma ID Date Data Source [id number] 07/12/2020 03:33:00 PM EDT [facility] Received: 07/12/2020 at 06:03:00 QTE : [facility], [address], [place], [address], Gaston Coronel MD Received: 07/12/2020 at 06:03:00 QTE : [facility], [address], [place], [address], Gaston Coronel MD Received: 07/12/2020 at 06:03:00 QTE : [facility], [address], [place], [address], Gaston Coronel MD Received: 07/12/2020 at 06:03:00 QTE : [facility], [address], [place], [address], Gaston Coronel MD Received: 07/12/2020 at 06:03:00 QTE : [facility], [address], [facility] [place], [address], Gaston Coronel MD Received: 07/12/2020 at 06:03:00 QTE : [facility], [address], [place], [address], Gaston Coronel MD Received: 07/12/2020 at 06:03:00 QTE : [facility], [address], [place], [address], Gaston Coronel MD Received: 07/12/2020 at 06:03:00 QTE : [facility], [address], [place], [address], Gaston Coronel MD Name Value Range Interpretation Description Data Source(s ) Supporting Code Document(s ) SPECIMEN [facility] COMPROMISED Whole blood, unspun or partially spun [facility] l barrier tubewas received more than 6 hours since collection. Afalse elevation of K, Phos and LD as well as a falsedecrease in glucose may occur due to prolonged conta ctwith red cells. ID Date Data Source [id number] 07/12/2020 03:33:00 PM EDT [facility] Received: 07/12/2020 at 06:03:00 QTE : [facility], [address], [place], [address], Gaston Coronel MD Received: 07/12/2020 at 06:03:00 QTE : [facility], [address], [place], [address], Gaston Coronel MD Received: 07/12/2020 at 06:03:00 QTE : [facility], [address], [place], [address], Gaston Coronel MD Received: 07/12/2020 at 06:03:00 QTE : [facility], [address], [place], [address], Gaston Coronel MD Received: 07/12/2020 at 06:03:00 QTE : [facility], [address], [place], [address], Gaston Coronel MD Received: 07/12/2020 at 06:03:00 QTE : [facility], [address], [place], [address], Gaston Coronel MD Received: 07/12/2020 at 06:03:00 QTE : [facility], [address], [place], [address], Gaston Coronel MD Received: 07/12/2020 at 06:03:00 QTE : [facility], [address], [place], [address], Gaston Coronel MD Name Value Range Interpretation [...] Serum or Plasma ID Date Data Source [id number] 07/12/2020 03:33:00 PM EDT [facility] Received: 07/12/2020 at 06:03:00 QTE : [facility], [place], [address], Gaston Coronel MD Received: 07/12/2020 at 06:03:00 QTE : [facility], [place], [address], Gaston Coronel MD Received: 07/12/2020 at 06:03:00 QTE : [facility], [place], [address], Gaston Coronel MD Received: 07/12/2020 at 06:03:00 QTE : [facility], [place], [address], Gaston Coronel MD Received: 07/12/2020 at 06:03:00 QTE : [facility], [place], [address], Gaston Coronel MD Received: 07/12/2020 at 06:03:00 QTE : [facility], [place], [address], Gaston Coronel MD Received: 07/12/2020 at 06:03:00 QTE : [facility], [place], [address], Gaston Coronel MD Received: 07/12/2020 at 06:03:00 QTE : [facility], [place], [address], Gaston Coronel MD Name Value Range Interpretation [...] Serum or Plasma ID Date Data Source [id number] 07/12/2020 03:33:00 PM EDT [facility] Received: 07/12/2020 at 06:03:00 QTE : [facility] [place], [address]Gaston MD Received: 07/12/2020 at 06:03:00 QTE : [facility], [address], Gaston Coronel MD Received: 07/12/2020 at 06:03:00 QTE : [facility], [address], Gaston Coronel MD Received: 07/12/2020 at 06:03:00 QTE : [facility], [address]Gaston MD Received: 07/12/2020 at 06:03:00 QTE : [facility], [address]Gaston MD Received: 07/12/2020 at 06:03:00 QTE : [facility], [address]Gaston MD Received: 07/12/2020 at 06:03:00 QTE : [facility] [place], [address]Gaston MD Received: 07/12/2020 at 06:03:00 QTE : [facility], [address], [place], [address], Gaston Coronel MD Name Value Range Interpretation [...] results) Automated count ID Date Data Source [id number] 07/12/2020 03:33:00 PM EDT [facility] Received: 07/12/2020 at 06:03:00 QTE : [facility], [place], [address], Gaston Coronel MD Received: 07/12/2020 at 06:03:00 QTE : [facility], [place], [address], Gaston Coronel MD Received: 07/12/2020 at 06:03:00 QTE : [facility], [address] [facility] [place], [address], Gaston Coronel MD Received: 07/12/2020 at 06:03:00 QTE : [facility], [address] [facility] [place], [address], Gaston Coronel MD Received: 07/12/2020 at 06:03:00 QTE : [facility], [place], [address]Gaston MD Received: 07/12/2020 at 06:03:00 QTE : [facility], [place], [address], Gaston Coronel MD Received: 07/12/2020 at 06:03:00 QTE : [facility], [address], [place], [address], Gaston Coronel MD Received: 07/12/2020 at 06:03:00 QTE : [facility], [address], [place], [address], Gaston Coronel MD Name Value Range Interpretation Description Data Source(s ) Supporting Code Document(s ) Ferritin 8 ng/mL 16-232 Below low normal [facility] in Serum or Plasma ID Date Data Source [id number] 07/12/2020 03:33:00 PM EDT [facility] Received: 07/12/2020 at 06:03:00 QTE : [facility], [address], [place], [address], Gaston Coronel MD Received: 07/12/2020 at 06:03:00 QTE : [facility], [place], [address], Gaston Coronel MD Received: 07/12/2020 at 06:03:00 QTE : [facility], [address], [place], [address], Gaston Coronel MD Received: 07/12/2020 at 06:03:00 QTE : [facility], [address], [place], [address], Gaston Coronel MD Received: 07/12/2020 at 06:03:00 QTE : [facility], [place], [address], Gaston Coronel MD Received: 07/12/2020 at 06:03:00 QTE : [facility], [place], [address], Gaston Coronel MD Received: 07/12/2020 at 06:03:00 QTE : [facility], [place], [address], Gaston Coronel MD Received: 07/12/2020 at 06:03:00 QTE : [facility], [address], [place], [address], Gaston Coronel MD Name Value Range Interpretation [...] diagnosis of diabet es in children.According to [place] Diabetes Association (ADA)guidelines, hemoglobin A1c <7.0% represents optimalcontrol in non- diabetic patients. Differen tmetrics may apply to specific patient populations.Standards of Medical Care in Diabetes(ADA). ID Date Data Source [id number] 06/19/2020 12:59:00 PM EDT [facility] Name Value Range Interpretation Description Data Sup porting Code Source(s) Document(s ) SARS [facility] coronavirus 2 RNA This lab was ordered by [facility] and reported by [facility]. ID Date Data Source [id number] 05/04/2020 08:43:39 AM EDT [facility] Exam: Transvaginal pelvic ultrasound wit h duplex [...] MRI.PRELIMINARY REPO RT:Preliminary report created by: PATRICIA Whitakerreliminary report time: 6:37 PMPelvic ultrasound: Uterine fibroids. Ovarian cysts. Flow seen in anika th ovaries. Small amount of free pelvic fluid. Name Value Range Interpretation Code Description Data Janee rce(s) Supporting Document(s ) ID Date Data Source [id number] 05/03/2020 04:43:22 PM EDT [facility] Exam: Noncontrast CAT scan of the abdome [...] Supporting Document(s ) ID Date Data Source [id number] 05/05/2020 09:18:00 AM EDT [facility] l Name Value Range Interpretation Description Data Sup porting Code Source(s) Document(s ) D/T RECEIVED 05/03/2020 [place] 15:38:26 Hospital D/T STARTED 05/04/2020 [place] 09:38:39 Hospital SOURCE: URINE [facility] CATCH STATUS FINAL [place] REPORT Hospital FINAL * [facility] =>10,000 <100,000 CFU/MLUROGENITAL AND/O R SKIN CONTAMINATION; PLEASE NOTIFYMICROBIOLOGY WITHIN 3 DAYS TO DISC USS, IF NECESSARY. ID Date Data Source [id number] 05/03/2020 04:36:00 PM EDT [facility] l Name Value Range Interpretation Description Data Sup porting Code Source(s) Document(s ) U WBC 0-2 /HPF 0-4 [facility] U RBC 5-9 /HPF 0-2 * [facility] SQ EPI 11-14 /HPF 0-10 * [facility] BACTERIA MODERATE: NONE-FEW * [place] 21-50/hpf Hospital /HPF MUCUS MODERATE NONE-FEW * [place] /HPF Hospital ID Date Data Source [id number] 05/03/2020 03:48:00 PM EDT [facility] l Name Value Range Interpretation Description Data Sup porting Code Source(s) Document(s ) U COLOR Yellow [facility] U APPEAR Clear [facility] U GLUC Negative NEG [place] MG/DL Hospital U BILI Negative NEG [facility] U KETONE Negative NEG [place] MG/DL Hospital U SG 1.020 1.003-1. [place] 030 Hospital U BLOOD Small NEG * [facility] U PH 5.0 5.0-7.5 [facility] U PROTEIN Negative NEG [place] MG/DL Hospital U UROBILI 1.0 EU/DL 0.2-1.0 [facility] U NITRITE Negative [facility] U LEUK EST Negative NEG [facility] ID Date Data Source [id number] 05/03/2020 03:36:00 PM EDT [facility] l Name Value Range Interpretation Code Description Data Janee rce(s) Supporting Document(s ) APTT 30.3 SEC 23.3-32.5 [facility] This test is used to monitor H eparin Therapy ID Date Data Source [id number] 05/03/2020 03:36:00 PM EDT [facility] l Name Value Range Interpretation Code Description Data Janee rce(s) Supporting Document(s ) . * [facility] INR Range: 2.0 - 3.0 STD Dose: P rophylaxis and treatment of venous thrombosis, pulmonary embo lism or prevention of systemic embolism. INR Range: 2.5 - 3.5 High Dose: High Risk patients with mechanical heart valves. INR 1.05 0.90-1.10 [facility] . * [facility] . PT 11.1 SEC 9.6-11.8 [facility] This test is used to monitor Oral Anticoagulant Therapy ID Date Data Source [id number] 05/03/2020 03:33:00 PM EDT [facility] Name Value Range Interpretation Description Data Sup porting Code Source(s) Document(s ) GLUCOSE 90 MG/DL 70-110 [facility] BUN 12 MG/DL 6-22 [facility] CREATININE 0.82 0.50-1.2 [place] MG/DL 0 [facility] SODIUM 138 135-145 [place] MMOL/L [facility] POTASSIUM 3.9 3.5-5.1 [place] mmol/L [facility] CHLORIDE 105 98-106 [place] MMOL/L [facility] CO2 25 20-29 [place] MMOL/L [facility] ANION GAP 8 MMOL/L 7-16 [facility] CALCIUM 9.0 8.7-10.7 [place] mg/dL [facility] TOT PROT 6.9 G/DL 6.1-8.0 [facility] ALBUMIN 4.2 G/DL 3.5-4.8 [facility] GLOBULIN 2.7 G/DL 1.3-4.5 [facility] BILIRUBIN,TOTA 0.3 0.3-1.2 [place] L mg/dL [facility] ALK PHOS 60 U/L 50-136 [facility] SGOT (AST) 15 U/L 8-42 [facility] SGPT (ALT) 8 U/L 30-65 Below low normal [facility] eGFR >60 ">60.0" [facility] mL/min./1.73 square meter eGFR IF >60 ">60.0" [facility] mL/min./1.73 square meter BILIRUBIN,DIRECT <0.2 MG/DL 0.0-0.3 [facility] ID Date Data Source [id number] 05/03/2020 03:33:00 PM EDT [facility] Name Value Range Interpretation Code Description Data Supporting Source(s) Document(s ) HCG STAT <5.0 "<5.0" [place] MIU/ML [facility] Human Chorionic Gonado tropin Approximate Gestational Age Approximate HCG Range 3 - 4 weeks 5.4 - 708 5 - 6 weeks 217 - 55419 7 - 8 weeks 4059 - 989027 9 - 10 weeks 02397 - 629452 12 - 14 weeks 58446 - [address]1979 15 - 16 weeks [address]04 - [address]87 17 - 18 weeks 1740 - 66765 5-10 mIU/mL range can occur in normal non- subject s. Resultsin this range should be correlated with the patient's clinicalcondition. ID Date Data Source [id number] 05/03/2020 03:15:00 PM EDT [facility] Name Value Range Interpretation Description Data Sup porting Code Source(s) Document(s ) WHITE BLOOD 6.6 4.0-11.5 [place] CELL COUNT K/CMM [facility] RBC 3.80 4.20-5.4 Below low normal [place] M/CM[address] HEMOGLOBIN 11.6 12.0-16. Below low normal [place] g/dL 0 Hospital HEMATOCRIT 35.9 % 37.0-47. Below low normal [address] MCV 94.5 FL 81.0-99. [address] MCH 30.5 PG 27.0-31. [address] MCHC 32.3 33.0-37. Below low normal [place] G/DL [address] [place] [address] RDW 14.7 % 11.5-14. Above high normal [address] PLT 392 140-440 [place] K/CMM [facility] MPV 10.5 FL 7.4-10.4 Above high normal [facility] NEUT% 53 % [facility] IMM GRAN% 0 % [facility] LYMPH% 31 % [facility] MONO% 13 % [facility] EOS% 2 % [facility] BASO% 1 % [facility] NEUT ABS 3.5 1.7-8.6 [place] X10E3/uL [facility] IMM GRAN ABS 0.0 0.0-0.1 [place] x10E3/uL Hospital LYMPH ABS 2.1 0.8-5.9 [place] X10E3/uL [facility] MONO ABS 0.8 0.0-1.0 [place] X10E3/uL Hospital EOS ABS 0.1 0.0-0.7 [place] X10E3/uL Hospital BASO ABS 0.1 0.0-0.2 [place] X10E3/uL Hospital ID Date Data Source [id number] 04/25/2020 10:58:51 AM EDT [facility] l EXAM: CTA CHEST WITH CONTRAST (CTPA)Hist [...] Supporting Document(s ) ID Date Data Source [id number] 04/25/2020 09:39:11 AM EDT [facility]: DUPLEX DOPPLER BILATERAL LOWER [...] Supporting Document(s ) ID Date Data Source [id number] 04/24/2020 11:33:00 PM EDT [facility] Name Value Range Interpretation Description Data Sup porting Code Source(s) Document(s ) GLUCOSE 97 MG/DL 70-110 [facility] BUN 16 MG/DL 6-22 [facility] CREATININE 0.67 0.50-1.2 [place] MG/DL 0 Hospital SODIUM 136 135-145 [place] MMOL/L Hospital POTASSIUM 4.0 3.5-5.1 [place] mmol/L Hospital CHLORIDE 102 98-106 [place] MMOL/L Hospital CO2 24 20-29 [place] MMOL/L Hospital ANION GAP 10 7-16 [place] MMOL/L Hospital CALCIUM 8.9 8.7-10.7 [place] mg/dL [facility] TOT PROT 6.7 G/DL 6.1-8.0 [facility] ALBUMIN 4.2 G/DL 3.5-4.8 [facility] GLOBULIN 2.5 G/DL 1.3-4.5 [facility] BILIRUBIN,TOTA <0.2 0.3-1.2 Below low normal [place] L mg/dL [facility] ALK PHOS 63 U/L 50-136 [facility] SGOT (AST) 16 U/L 8-42 [facility] SGPT (ALT) 11 U/L 30-65 Below low normal [facility] eGFR >60 ">60.0" [facility] mL/min./1.73 square meter eGFR IF >60 ">60.0" [facility] mL/min./1.73 square meter BILIRUBIN,DIRECT <0.2 MG/DL 0.0-0.3 [facility] al ID Date Data Source [id number] 04/24/2020 11:33:00 PM EDT [facility] l Name Value Range Interpretation Description Data Sup porting Code Source(s) Document(s ) TROPONIN I <0.3 "<0.3" [place] ng/ml Hospital ID Date Data Source [id number] 04/24/2020 11:33:00 PM EDT [facility] l Name Value Range Interpretation Code Description Data Supporting Source(s) Document(s ) HCG STAT <5.0 "<5.0" [place] MIU/ML [facility] Human Chorionic Gonado tropin Approximate Gestational Age Approximate HCG Range 3 - 4 weeks 5.4 - 708 5 - 6 weeks 217 - 20095 7 - 8 weeks 4059 - [id number] 9 - 10 weeks 68251 - [id number] 12 - 14 weeks 19133 - 29312 15 - 16 weeks 12727 - 01252 17 - 18 weeks 9578 - 54950 5-10 mIU/mL range can occur in normal non- subject s. Resultsin this range should be correlated with the patient's clinicalcondition. ID Date Data Source [id number] 04/24/2020 10:37:00 PM EDT [facility] Name Value Range Interpretation Code Description Data Janee rce(s) Supporting Document(s ) . * [facility] INR Range: 2.0 - 3.0 STD Dose: P rophylaxis and treatment of venous thrombosis, pulmonary embo lism or prevention of systemic embolism. INR Range: 2.5 - 3.5 High Dose: High Risk patients with mechanical heart valves. INR 1.01 0.90-1.10 [facility] . * [facility] . PT 10.7 SEC 9.6-11.8 [facility] This test is used to monitor Oral Anticoagulant Therapy ID Date Data Source [id number] 04/24/2020 10:37:00 PM EDT [facility] Name Value Range Interpretation Code Description Data Janee rce(s) Supporting Document(s ) APTT 24.0 SEC 23.3-32.5 [facility] This test is used to monitor H eparin Therapy ID Date Data Source [id number] 04/24/2020 10:37:00 PM EDT [facility] Name Value Range Interpretation Description Data Sup porting Code Source(s) Document(s ) D-DIMER 0.75 "<0.50" Above high normal [place] ([facility]DVT) [facility] According to the assay cad designer's pu blished package insert, anormal (<0.50 mg/L FEU) D-dimer result in conjunction with a non-highclinical probability assessment, excludes deep vein thrombosis (DVT)and p ulmonary embolism (PE) with high sensitivity. D-dimer values increase with age and thi s can make VTE exclusion ofan older population difficult. To address this, vera ruiz [employer], based on best available evidence [...] 0.80 mg/L FEU. ID Date Data Source [id number] 04/24/2020 10:20:00 PM EDT [facility] Name Value Range Interpretation Description Data Sup porting Code Source(s) Document(s ) WHITE BLOOD 8.1 4.0-11.5 [place] CELL COUNT K/[facility] RBC 3.40 4.20-5.4 Below low normal [address] HEMOGLOBIN 10.6 12.0-16. Below low normal [place] g/dL [address] [place] [address] HEMATOCRIT 32.5 % 37.0-47. Below low normal [address] MCV 95.6 FL 81.0-99. [address] MCH 31.2 PG 27.0-31. Above high normal [address] MCHC 32.6 33.0-37. Below low normal [place] G/DL [address] [place] [address] RDW 14.8 % 11.5-14. Above high normal [address] PLT 377 140-440 [facility] MPV 11.0 FL 7.4-10.4 Above high normal [facility] NEUT% 52 % [facility] IMM GRAN% 0 % [facility] LYMPH% 31 % [facility] MONO% 14 % [facility] EOS% 2 % [facility] BASO% 1 % [facility] NEUT ABS 4.1 1.7-8.6 [place] X10E3/uL Hospital IMM GRAN ABS 0.0 0.0-0.1 [place] x10E3/ Hospital LYMPH ABS 2.5 0.8-5.9 [place] X10E3/uL Hospital MONO ABS 1.1 0.0-1.0 Above high normal [place] X10E3/ Hospital EOS ABS 0.2 0.0-0.7 [place] X10E3/ Hospital BASO ABS 0.1 0.0-0.2 [place] X10E3/ Hospital Procedure
[2020-07-22] MEDS ORDERED: PROPOFOL 20 ML ONE ×3 (15:33)
[2020-07-22] MEDS ORDERED: MIDAZOLAM HCL 2 MG/2 ML SINGLE DOSE VIAL ONE (15:55)
[2020-07-22 16:47] VITALS: TEMP 98.1
--- NOTE | 2020-07-22 17:31 | OP ---
Operative Note - Note: Operative Date: 07/22/20 Pre-Operative Diagnosis: Right renal stone Operation: Right ESWL Findings: 6 mm mid pole Right renal stone Post-Operative Diagnosis: Same as Pre-op Surgeon: Antolin Elizabeth Anesthesia: Regional Estimated Blood Loss (mls): 0 Operative Report Dictated: Yes
[2020-07-22 18:00] VITALS: BP 97/67; PULSE 65
--- NOTE | 2020-07-23 00:18 | OP ---
DATE OF OPERATION: 07/22/2020 PREOPERATIVE DIAGNOSIS: Right renal stone. POSTOPERATIVE DIAGNOSIS: Right renal stone. PROCEDURE: Right extracorporeal shockwave lithotripsy. ATTENDING: Merary Elizabeth M.D. ANESTHESIA: Fractional. DESCRIPTION OF PROCEDURE: Patient was brought in the operating room, placed in a supine position on the operating room table. Ultrasonography and fluoroscopy were performed. A 6-mm right mid pole stone was identified. At this point, anesthesia and preoperative antibiotics were administered. Shockwave lithotripsy was then performed. 2500 impulses at 17 joules of power were administered to the stone with excellent fragmentation of the stone noted under realtime ultrasonography and fluoroscopy. No complications were noted. The patient tolerated the procedure very well. MERARY HECTOR M.D. /[id number]
== END 2020-07-22 17:55 | disposition home or self-care (01) ==
LOC: JASU-SURG 04:39
PROVIDERS: ATTEND Urology
PROC: 0TF3XZZ Fragmentation in Right Kidney Pelvis, External Approach (ICD-10-PCS; principal; 2020-07-22 15:00)
DX: N20.0 Calculus of kidney (principal)
CPT/HCPCS: 84703

== ENCOUNTER 2020-10-24 09:30 | Emergency (ER) | payer OTHER ==
[2020-10-24 09:38] VITALS: BP 91/67; PULSE 83; BMI 21.7
[2020-10-24] MEDS ORDERED: DICYCLOMINE HCL 20 MG TABLET PO ONE (10:01)
[2020-10-24] MEDS ORDERED: FAMOTIDINE 20 MG/50 ML IVPB 20 MG/50 ML MG IVPB ONE ×2 (10:01→10:21)
[2020-10-24] MEDS ORDERED: MAG HYDROX/AL HYDROX/SIMETH 30 ML UNIT-DOSE CUP PO ONE (10:03)
[2020-10-24] MEDS ORDERED: SODIUM CHLORIDE 1,000 ML IV STA (10:03)
[2020-10-24] MEDS ORDERED: MAG HYDROX/AL HYDROX/SIMETH 30 ML UNIT-DOSE CUP ONE (10:20)
[2020-10-24] MEDS ORDERED: DICYCLOMINE HCL 10 MG CAPSULE ONE (10:20)
[2020-10-24] MEDS ORDERED: FLUCONAZOLE 100 MG TABLET (UD) ONE (10:30)
[2020-10-24 11:32] LABS: BASO % 1.5 % (0-2.0); EOS % 3.2 % (0-4.5); HEMOGLOBIN 11.4 GM/dL (10.7-15.3); LYMPH % 32.7 % (8-40); MCH 31.2 pg (25.7-33.7); MCHC 33.5 g/dl (32.0-36.0); MEAN PLT VOLUME 9.5 fl (7.5-11.1); MONO % 15.6 % (3.8-10.2); PLATELET COUNT 327 K/MM3 (134-434); RBC 3.65 M/mm3 (3.60-5.2); RDW 14.7 % (11.6-15.6)
[2020-10-24 11:46] LABS: POTASSIUM 4.9 mmol/L (3.5-5.1)
[2020-10-24 11:48] LABS: ALBUMIN 3.5 g/dl (3.4-5.0); CALCIUM 8.8 mg/dL (8.5-10.1)
[2020-10-24 11:49] LABS: BLOOD UREA NITROGEN 9.1 mg/dL (7-18)
[2020-10-24 11:51] LABS: CREATININE 0.6 mg/dL (0.55-1.3)
[2020-10-24 11:53] LABS: BILIRUBIN,TOTAL 0.6 mg/dL (0.2-1); TOT PROT 6.9 g/dl (6.4-8.2)
[2020-10-24 14:15] LABS: URINE APPEARANCE CLEAR; URINE BILIRUBIN NEGATIVE (NEGATIVE); URINE COLOR YELLOW; URINE GLUCOSE (UA) NEGATIVE (NEGATIVE); URINE KETONE NEGATIVE (NEGATIVE); URINE LEUK ESTERASE NEGATIVE (NEGATIVE); URINE NITRITE NEGATIVE (NEGATIVE); URINE PROTEIN NEGATIVE (NEGATIVE); URINE UROBILINOGEN 0.2 mg/dL (0.2-1.0)
[2020-10-24 14:18] LABS: HCG,QUALITATIVE URINE Negative
== END 2020-10-24 15:24 | disposition home or self-care (01) ==
LOC: JER 09:30
PROC: 3E033GC Introduction of Other Therapeutic Substance into Peripheral Vein, Percutaneous Approach (ICD-10-PCS; principal; 2020-10-24)
PROC: 3E0337Z Introduction of Electrolytic and Water Balance Substance into Peripheral Vein, Percutaneous Approach (ICD-10-PCS; 2020-10-24)
DX: N13.2 Hydronephrosis with renal and ureteral calculous obstruction (principal); K59.00 Constipation, unspecified; R10.13 Epigastric pain
CPT/HCPCS: 36415; 74019-TC-FY; 74176-TC; 76705-TC; 80053; 81003; 83690; 84703; 85025; 87086; 99285-25

== ENCOUNTER 2020-11-26 04:35 | Day surgery (SDC) | payer OTHER ==
[2020-11-22 09:27] VITALS: BMI 22.6
[2020-11-26 11:04] VITALS: TEMP 97.8
[2020-11-26 11:43] VITALS: BP 112/74; PULSE 65
== END 2020-11-26 12:15 | disposition home or self-care (01) ==
LOC: JASU-ENDO 04:35
PROVIDERS: ATTEND Internal Medicine Gastroenterology
PROC: 0DJD8ZZ Inspection of Lower Intestinal Tract, Via Natural or Artificial Opening Endoscopic (ICD-10-PCS; principal; 2020-11-26 10:00)
DX: Q43.8 Other specified congenital malformations of intestine (principal); K64.8 Other hemorrhoids
CPT/HCPCS: 81025

== ENCOUNTER 2020-12-18 18:01 | Emergency (ER) | payer OTHER ==
[2020-12-18 18:13] VITALS: BP 93/64; PULSE 80; BMI 22.6
[2020-12-18 19:23] LABS: HCG,QUALITATIVE URINE Negative
[2020-12-18 19:24] LABS: EPI CELLS >36 /uL (0-25.1); HYALINE CASTS 2 /uL (0-3.1); PH,URINE 5.5 (5.0-8.0); URINE APPEARANCE CLOUDY; URINE BACTERIA 575 /uL (0-1359); URINE BILIRUBIN NEGATIVE (NEGATIVE); URINE COLOR YELLOW; URINE GLUCOSE (UA) NEGATIVE (NEGATIVE); URINE KETONE NEGATIVE (NEGATIVE); URINE LEUK ESTERASE NEGATIVE (NEGATIVE); URINE NITRITE NEGATIVE (NEGATIVE); URINE PROTEIN NEGATIVE (NEGATIVE); URINE RBC 12 /uL (0-23.9); URINE UROBILINOGEN 0.2 mg/dL (0.2-1.0); URINE WBC 14 /uL (0-25.8)
[2020-12-18 19:28] LABS: BASO % 1.4 % (0-2.0); CHLORIDE 104 mmol/L (98-107); EOS % 2.4 % (0-4.5); HEMATOCRIT 32.3 % (32.4-45.2); HEMOGLOBIN 10.7 GM/dL (10.7-15.3); LYMPH % 34.8 % (8-40); MCH 30.8 pg (25.7-33.7); MEAN CELL VOLUME 93.2 fl (80-96); MEAN PLT VOLUME 9.6 fl (7.5-11.1); MONO % 14.2 % (3.8-10.2); NEUT % 47.2 % (42.8-82.8); PLATELET COUNT 388 K/MM3 (134-434); POTASSIUM 4.5 mmol/L (3.5-5.1); RBC 3.46 M/mm3 (3.60-5.2); SODIUM 136 mmol/L (136-145); WHITE BLOOD COUNT 6.8 K/mm3 (4.0-10.0)
[2020-12-18 19:33] LABS: ALBUMIN 3.5 g/dl (3.4-5.0); BLOOD UREA NITROGEN 13.8 mg/dL (7-18); CALCIUM 8.7 mg/dL (8.5-10.1)
[2020-12-18 19:34] LABS: ANION GAP 3 MMOL/L (8-16); CO2 28 mmol/L (21-32); GLUCOSE,RANDOM 94 mg/dL (74-106)
[2020-12-18 19:36] LABS: CREATININE 0.6 mg/dL (0.55-1.3); SGOT/AST 14 U/L (15-37); SGPT/ALT 24 U/L (13-61)
[2020-12-18 19:38] LABS: BILIRUBIN,TOTAL 0.2 mg/dL (0.2-1)
[2020-12-18 19:39] LABS: ALK PHOS 72 U/L (45-117)
== END 2020-12-18 20:45 | disposition home or self-care (01) ==
LOC: JER 18:01
DX: R07.9 Chest pain, unspecified (principal)
CPT/HCPCS: 36415; 71046-TC-FY; 80053; 81003; 82550; 84484; 84703; 85025; 93005; 93010; 99285-25

== ENCOUNTER 2021-01-01 17:56 | Emergency (ER) | payer OTHER ==
[2021-01-01 18:08] VITALS: BP 97/63; PULSE 87; TEMP 98.2; BMI 22.6
[2021-01-01 20:26] LABS: EPI CELLS 14 /uL (0-25.1); HYALINE CASTS 1 /uL (0-3.1); URINE APPEARANCE CLEAR; URINE BACTERIA 706 /uL (0-1359); URINE BILIRUBIN NEGATIVE (NEGATIVE); URINE COLOR YELLOW; URINE GLUCOSE (UA) NEGATIVE (NEGATIVE); URINE KETONE NEGATIVE (NEGATIVE); URINE LEUK ESTERASE NEGATIVE (NEGATIVE); URINE NITRITE NEGATIVE (NEGATIVE); URINE PROTEIN NEGATIVE (NEGATIVE); URINE RBC 20 /uL (0-23.9); URINE UROBILINOGEN 0.2 mg/dL (0.2-1.0); URINE WBC 6 /uL (0-25.8)
[2021-01-01 20:27] LABS: HCG,QUALITATIVE URINE Negative
[2021-01-01] MEDS ORDERED: IBUPROFEN 400 MG TABLET (FP) PO ONE ×2 (20:33→20:52)
[2021-01-01 20:49] LABS: BASO % 1.1 % (0-2.0); EOS % 1.9 % (0-4.5); HEMOGLOBIN 10.7 GM/dL (10.7-15.3); LYMPH % 30.6 % (8-40); MCH 30.8 pg (25.7-33.7); MCHC 33.3 g/dl (32.0-36.0); MEAN CELL VOLUME 92.4 fl (80-96); MEAN PLT VOLUME 9.8 fl (7.5-11.1); MONO % 13.5 % (3.8-10.2); NEUT % 52.9 % (42.8-82.8); PLATELET COUNT 353 K/MM3 (134-434); RBC 3.46 M/mm3 (3.60-5.2); RDW 15.3 % (11.6-15.6); WHITE BLOOD COUNT 8.9 K/mm3 (4.0-10.0)
[2021-01-01 21:04] LABS: POTASSIUM 4.8 mmol/L (3.5-5.1)
[2021-01-01 21:06] LABS: ALBUMIN 3.6 g/dl (3.4-5.0); CALCIUM 8.9 mg/dL (8.5-10.1)
[2021-01-01 21:10] LABS: CREATININE 0.6 mg/dL (0.55-1.3)
[2021-01-01 21:11] LABS: BILIRUBIN,TOTAL 0.2 mg/dL (0.2-1); TOT PROT 7.2 g/dl (6.4-8.2)
== END 2021-01-01 22:46 | disposition home or self-care (01) ==
LOC: JER 17:56
DX: N13.30 Unspecified hydronephrosis (principal); D25.9 Leiomyoma of uterus, unspecified; R10.9 Unspecified abdominal pain
CPT/HCPCS: 36415; 74176-TC; 80053; 81003; 84703; 85025; 87086; 99285-25

== ENCOUNTER 2021-03-31 05:40 | Emergency (ER) | payer OTHER ==
[2021-03-31 06:06] VITALS: BP 100/68; PULSE 68; TEMP 97.3; BMI 22.6
[2021-03-31] MEDS ORDERED: SODIUM CHLORIDE 1,000 ML IV STA (07:19)
[2021-03-31] MEDS ORDERED: METOCLOPRAMIDE HCL INJECTION 10 MG/2 ML VIAL IVPB ONE (07:19)
[2021-03-31] MEDS ORDERED: ACETAMINOPHEN 1000 MG/100 ML VIAL (NON FORMULARY) IVPB ONE (07:19)
[2021-03-31] MEDS ORDERED: METOCLOPRAMIDE HCL INJECTION 10 MG/2 ML VIAL ONE (08:11)
[2021-03-31] MEDS ORDERED: ACETAMINOPHEN INJECTION 100 ML IVPB ONE (08:12)
[2021-03-31 08:22] LABS: EOS % 1.9 % (0-4.5); HEMATOCRIT 32.7 % (32.4-45.2); LYMPH % 21.8 % (8-40); MCH 30.6 pg (25.7-33.7); MCHC 33.6 g/dl (32.0-36.0); MEAN PLT VOLUME 8.4 fl (7.5-11.1); MONO % 12.2 % (3.8-10.2); NEUT % 63.1 % (42.8-82.8); PLATELET COUNT 324 10^3/uL (134-434); RDW 16.4 % (11.6-15.6); WHITE BLOOD COUNT 6.5 K/mm3 (4.0-10.0)
[2021-03-31 08:28] LABS: INR 1.07 (0.83-1.09); PROTHROMBIN TIME (PATIENT) 12.9 SEC (9.7-13.0)
[2021-03-31 08:33] LABS: PH,URINE 5.5 (5.0-8.0); URINE APPEARANCE CLEAR; URINE BILIRUBIN NEGATIVE (NEGATIVE); URINE COLOR YELLOW; URINE GLUCOSE (UA) NEGATIVE (NEGATIVE); URINE KETONE NEGATIVE (NEGATIVE); URINE LEUK ESTERASE NEGATIVE (NEGATIVE); URINE NITRITE NEGATIVE (NEGATIVE); URINE PROTEIN NEGATIVE (NEGATIVE); URINE UROBILINOGEN 0.2 mg/dL (0.2-1.0)
[2021-03-31 08:36] LABS: HCG,QUALITATIVE URINE Negative
[2021-03-31 08:42] LABS: CHLORIDE 106 mmol/L (98-107); SODIUM 140 mmol/L (136-145)
[2021-03-31 08:44] LABS: CALCIUM 8.6 mg/dL (8.5-10.1)
[2021-03-31 08:45] LABS: ALBUMIN 3.4 g/dl (3.4-5.0); ANION GAP 6 MMOL/L (8-16); BLOOD UREA NITROGEN 11.5 mg/dL (7-18); CO2 29 mmol/L (21-32); GLUCOSE,RANDOM 93 mg/dL (74-106)
[2021-03-31 08:48] LABS: CREATININE 0.6 mg/dL (0.55-1.3); SGOT/AST 12 U/L (15-37)
[2021-03-31 08:50] LABS: BILIRUBIN,TOTAL 0.4 mg/dL (0.2-1); TOT PROT 6.6 g/dl (6.4-8.2)
[2021-03-31 08:51] LABS: ALK PHOS 71 U/L (45-117)
[2021-03-31 08:55] LABS: SGPT/ALT 17 U/L (13-61)
== END 2021-03-31 11:15 | disposition home or self-care (01) ==
LOC: JER 05:40
PROC: 3E033NZ Introduction of Analgesics, Hypnotics, Sedatives into Peripheral Vein, Percutaneous Approach (ICD-10-PCS; principal; 2021-03-31)
PROC: 3E033GC Introduction of Other Therapeutic Substance into Peripheral Vein, Percutaneous Approach (ICD-10-PCS; 2021-03-31)
PROC: 3E0337Z Introduction of Electrolytic and Water Balance Substance into Peripheral Vein, Percutaneous Approach (ICD-10-PCS; 2021-03-31)
DX: R51.9 Headache, unspecified (principal)
CPT/HCPCS: 36415; 80053; 81003; 82550; 84484; 84703; 85025; 85610; 87086; 93005; 93010; 96361; 96374; 96375; 99285-25; C9803; J0131; U0003; U0005

== ENCOUNTER 2021-07-24 17:50 | Emergency (ER) | payer OTHER ==
[2021-07-24] MEDS ORDERED: SODIUM CHLORIDE 1,000 ML IV STA (18:42)
[2021-07-24 19:21] VITALS: BP 103/64; PULSE 81; TEMP 97.9; BMI 22.2
[2021-07-24] MEDS ORDERED: ACETAMINOPHEN 325 MG TABLET (FP) PO ONE (19:41)
[2021-07-24 20:07] LABS: HEMATOCRIT 34.5 % (32.4-45.2); HEMOGLOBIN 11.3 GM/dL (10.7-15.3); MCHC 32.9 g/dl (32.0-36.0); MEAN PLT VOLUME 8.1 fl (7.5-11.1); PLATELET COUNT 424 10^3/uL (134-434); RBC 3.79 M/mm3 (3.60-5.2); RDW 15.2 % (11.6-15.6); WHITE BLOOD COUNT 14.8 K/mm3 (4.0-10.0)
[2021-07-24 20:11] LABS: EPI CELLS 6 /uL (0-25.1); HCG,QUALITATIVE URINE Negative; HYALINE CASTS 1 /uL (0-3.1); PH,URINE 5.5 (5.0-8.0); URINE APPEARANCE TURBID; URINE BACTERIA 2458 /uL (0-1359); URINE BILIRUBIN NEGATIVE (NEGATIVE); URINE COLOR DK YELLOW; URINE GLUCOSE (UA) NEGATIVE (NEGATIVE); URINE KETONE NEGATIVE (NEGATIVE); URINE LEUK ESTERASE 3+ (NEGATIVE); URINE NITRITE POSITIVE (NEGATIVE); URINE PROTEIN 2+ (NEGATIVE); URINE RBC 8536 /uL (0-23.9); URINE WBC 5411 /uL (0-25.8)
[2021-07-24] MEDS ORDERED: ACETAMINOPHEN 325 MG TABLET (FP) ONE (20:11)
[2021-07-24 20:23] LABS: ALBUMIN 3.8 g/dl (3.4-5.0); CALCIUM 9.4 mg/dL (8.5-10.1)
[2021-07-24 20:27] LABS: CREATININE 0.7 mg/dL (0.55-1.3)
[2021-07-24 20:28] LABS: BILIRUBIN,TOTAL 0.2 mg/dL (0.2-1); TOT PROT 7.7 g/dl (6.4-8.2)
== END 2021-07-24 22:35 | disposition home or self-care (01) ==
LOC: JERFT 17:50
PROC: 3E0337Z Introduction of Electrolytic and Water Balance Substance into Peripheral Vein, Percutaneous Approach (ICD-10-PCS; principal; 2021-07-24)
DX: N10 Acute pyelonephritis (principal)
CPT/HCPCS: 36415; 74176-TC; 80053; 81003; 84703; 85027; 87086; 87186; 99285-25

== ENCOUNTER 2021-09-23 08:34 | Emergency (ER) | payer OTHER ==
[2021-09-23 09:03] VITALS: BP 102/66; PULSE 75; TEMP 98.6; BMI 22.4
== END 2021-09-23 11:41 | disposition home or self-care (01) ==
LOC: JER 08:34
DX: R07.0 Pain in throat (principal)
CPT/HCPCS: 87651; 87804; 87807; 99283-25; C9803; U0003; U0005

== ENCOUNTER 2022-02-01 15:51 | Emergency (ER) | payer OTHER ==
[2022-02-01 15:55] VITALS: TEMP 97; BMI 23.3
[2022-02-01] MEDS ORDERED: SODIUM CHLORIDE 1,000 ML IV STA (16:24)
[2022-02-01] MEDS ORDERED: MAG HYDROX/AL HYDROX/SIMETH 30 ML UNIT-DOSE CUP PO ONE (16:28)
[2022-02-01] MEDS ORDERED: FAMOTIDINE 20 MG/50 ML IVPB 20 MG/50 ML MG IVPB ONE (16:28)
[2022-02-01] MEDS ORDERED: ONDANSETRON 4 MG/2 ML VIAL IVPUSH ONE (16:28)
[2022-02-01] MEDS ORDERED: ACETAMINOPHEN 1000 MG/100 ML BAG IVPB ONE (16:29)
[2022-02-01] MEDS ORDERED: ACETAMINOPHEN INJECTION 100 ML IVPB ONE (17:22)
[2022-02-01] MEDS ORDERED: FAMOTIDINE 10 MG/ML VIAL IVPB ONE ×2 (17:22→17:23)
[2022-02-01] MEDS ORDERED: ONDANSETRON 4 MG/2 ML VIAL ONE (17:22)
[2022-02-01] MEDS ORDERED: MAG HYDROX/AL HYDROX/SIMETH 30 ML UNIT-DOSE CUP ONE (17:22)
[2022-02-01 17:27] LABS: BASO % 1.3 % (0-2.0); EOS % 3.6 % (0-4.5); HEMATOCRIT 33.4 % (32.4-45.2); HEMOGLOBIN 11.3 GM/dL (10.7-15.3); LYMPH % 35.9 % (8-40); MCH 30.5 pg (25.7-33.7); MCHC 33.7 g/dl (32.0-36.0); MEAN CELL VOLUME 90.5 fl (80-96); MEAN PLT VOLUME 8.3 fl (7.5-11.1); MONO % 11.7 % (3.8-10.2); NEUT % 47.5 % (42.8-82.8); PLATELET COUNT 425 10^3/uL (134-434); RDW 14.8 % (11.6-15.6)
[2022-02-01 17:42] LABS: CALCIUM 8.9 mg/dL (8.5-10.1)
[2022-02-01 17:43] LABS: ALBUMIN 3.8 g/dl (3.4-5.0); BLOOD UREA NITROGEN 16.5 mg/dL (7-18)
[2022-02-01 17:46] LABS: CREATININE 0.6 mg/dL (0.55-1.3)
[2022-02-01 17:47] LABS: TOT PROT 7.2 g/dl (6.4-8.2)
[2022-02-01 17:48] LABS: BILIRUBIN,TOTAL 0.1 mg/dL (0.2-1)
[2022-02-01 17:53] LABS: EPI CELLS 5 /uL (0-25.1); HCG,QUALITATIVE URINE Negative; HYALINE CASTS 1 /uL (0-3.1); URINE APPEARANCE CLEAR; URINE BACTERIA 49 /uL (0-1359); URINE BILIRUBIN NEGATIVE (NEGATIVE); URINE COLOR YELLOW; URINE GLUCOSE (UA) NEGATIVE (NEGATIVE); URINE KETONE NEGATIVE (NEGATIVE); URINE LEUK ESTERASE NEGATIVE (NEGATIVE); URINE NITRITE NEGATIVE (NEGATIVE); URINE PROTEIN NEGATIVE (NEGATIVE); URINE RBC 17 /uL (0-23.9); URINE UROBILINOGEN 0.2 mg/dL (0.2-1.0); URINE WBC 2 /uL (0-25.8)
[2022-02-01 21:16] VITALS: BP 110/71; PULSE 71
== END 2022-02-01 20:40 | disposition home or self-care (01) ==
LOC: JER 15:51
PROC: 3E033GC Introduction of Other Therapeutic Substance into Peripheral Vein, Percutaneous Approach (ICD-10-PCS; principal; 2022-02-01)
DX: M94.0 Chondrocostal junction syndrome [Tietze] (principal); K21.9 Gastro-esophageal reflux disease without esophagitis
CPT/HCPCS: 36415; 71046-TC-FY; 80053; 81003; 84484; 84703; 85025; 93005; 93010; 99285-25

== ENCOUNTER 2022-02-27 21:06 | Emergency (ER) | payer OTHER ==
[2022-02-27 21:14] VITALS: BP 99/66; PULSE 88; TEMP 97.9; BMI 22.4
== END 2022-02-27 23:55 | disposition home or self-care (01) ==
LOC: JER 21:06
DX: J11.1 Influenza due to unidentified influenza virus with other respiratory manifestations (principal)
CPT/HCPCS: 71046-TC-FY; 99283-25

== ENCOUNTER 2022-08-24 12:00 | Emergency (ER) | payer OTHER ==
[2022-08-24 13:01] VITALS: BP 97/67; PULSE 79; RESP 18; TEMP 97.1; BMI 23.6
[2022-08-24] MEDS ORDERED: ACETAMINOPHEN 500 MG TABLET (FP) PO ONE (14:13)
[2022-08-24 15:21] LABS: THROAT:GRP A STREP NOT DETECTED (NOTDETECTED)
== END 2022-08-24 15:40 | disposition home or self-care (01) ==
LOC: JER 12:00
DX: U07.1 COVID-19 (principal)
CPT/HCPCS: 0241U-QW; 71046-TC-FY; 87651; 99284-25

== ENCOUNTER 2022-10-06 14:13 | Emergency (ER) | payer OTHER ==
[2022-10-06 14:26] VITALS: TEMP 98.1; BMI 22.6
[2022-10-06 18:07] LABS: BASO % 1.8 % (0-2.0); EOS % 3.8 % (0-4.5); HEMOGLOBIN 10.8 GM/dL (10.7-15.3); LYMPH % 39.4 % (8-40); MCH 30.3 pg (25.7-33.7); MCHC 32.7 g/dl (32.0-36.0); MEAN CELL VOLUME 92.6 fl (80-96); MEAN PLT VOLUME 8.7 fl (7.5-11.1); MONO % 12.8 % (3.8-10.2); NEUT % 42.2 % (42.8-82.8); PLATELET COUNT 381 10^3/uL (134-434); RBC 3.56 M/mm3 (3.60-5.2); RDW 15.2 % (11.6-15.6); WHITE BLOOD COUNT 6.4 K/mm3 (4.0-10.0)
[2022-10-06 18:11] LABS: EPI CELLS 22 /uL (0-25.1); HYALINE CASTS 0 /uL (0-3.1); PH,URINE 5.5 (5.0-8.0); URINE APPEARANCE CLEAR; URINE BACTERIA 431 /uL (0-1359); URINE BILIRUBIN NEGATIVE (NEGATIVE); URINE COLOR YELLOW; URINE GLUCOSE (UA) NEGATIVE (NEGATIVE); URINE KETONE NEGATIVE (NEGATIVE); URINE LEUK ESTERASE NEGATIVE (NEGATIVE); URINE NITRITE NEGATIVE (NEGATIVE); URINE PROTEIN NEGATIVE (NEGATIVE); URINE RBC 19 /uL (0-23.9); URINE UROBILINOGEN 0.2 mg/dL (0.2-1.0); URINE WBC 7 /uL (0-25.8)
[2022-10-06 18:33] LABS: HCG,QUALITATIVE URINE Negative
[2022-10-06 19:55] LABS: ALBUMIN 3.5 g/dl (3.4-5.0); BLOOD UREA NITROGEN 11.1 mg/dL (7-18); CALCIUM 8.8 mg/dL (8.5-10.1)
[2022-10-06 19:58] LABS: CREATININE 0.6 mg/dL (0.55-1.3)
[2022-10-06 20:00] LABS: BILIRUBIN,TOTAL 0.3 mg/dL (0.2-1); TOT PROT 6.9 g/dl (6.4-8.2)
[2022-10-06 20:40] VITALS: BP 105/62; PULSE 80; RESP 16
== END 2022-10-06 20:40 | disposition home or self-care (01) ==
LOC: JER 14:13
DX: N30.00 Acute cystitis without hematuria (principal); N13.30 Unspecified hydronephrosis
CPT/HCPCS: 36415; 71046-TC-FY; 74176-TC; 80053; 81003; 83690; 84484; 84703; 85025; 87086; 93005; 93010; 99285-25

== ENCOUNTER 2023-03-02 16:08 | Emergency (ER) | payer OTHER ==
[2023-03-02 16:23] VITALS: BP 93/63; PULSE 79; RESP 18; TEMP 98.2; BMI 21.7
== END 2023-03-02 19:00 | disposition home or self-care (01) ==
LOC: JERFT 16:08 → JER 16:08 → JERFT 19:00
DX: S06.0X0A Concussion without loss of consciousness, initial encounter (principal); G44.309 Post-traumatic headache, unspecified, not intractable; R42 Dizziness and giddiness; R11.0 Nausea; X58.XXXA Exposure to other specified factors, initial encounter
CPT/HCPCS: 70450-TC; 99284-25

== ENCOUNTER 2024-01-03 18:13 | Emergency (ER) | payer OTHER ==
[2024-01-03 18:42] VITALS: BP 99/59; PULSE 88; RESP 18; TEMP 98.7; BMI 20.1
[2024-01-03] MEDS ORDERED: ACETAMINOPHEN 500 MG TABLET (FP) ONE (21:03)
[2024-01-03] MEDS ORDERED: IBUPROFEN 600 MG TABLET (FP) PO ONE (21:03)
[2024-01-03] MEDS: ACETAMINOPHEN 500 MG TABLET (FP) PO ONE (21:13)
[2024-01-03] MEDS: IBUPROFEN 600 MG TABLET (FP) PO ONE (21:13)
[2024-01-03] MEDS: IBUPROFEN 400 MG TABLET (FP) PO ONE (21:21)
== END 2024-01-03 23:08 | disposition home or self-care (01) ==
LOC: JERFT 18:13
DX: M25.512 Pain in left shoulder (principal); M79.622 Pain in left upper arm
CPT/HCPCS: 73030-TC-LT-FY; 99283-25

== ENCOUNTER → 2024-01-31 | Day surgery (SDC) | payer OTHER | END | disposition home or self-care (01) | LOC: JRADUS-SUR 13:23 → JMAMMO 13:23 | PROVIDERS: ATTEND Registered Nurse | PROC: 0H9T3ZX Drainage of Right Breast, Percutaneous Approach, Diagnostic (ICD-10-PCS; principal; 2024-01-31) | DX: N60.01 Solitary cyst of right breast (principal) | CPT/HCPCS: 19000; 19001; 76942-TC; 87899; 88173; 88305-TC ==

== ENCOUNTER 2024-05-17 22:45 | Emergency (ER) | payer OTHER ==
[2024-05-17 22:51] VITALS: BP 96/69; PULSE 89; RESP 17; TEMP 97.8; BMI 21.7
[2024-05-18] MEDS ORDERED: ACETAMINOPHEN 325 MG TABLET (FP) ONE
[2024-05-18] MEDS: ACETAMINOPHEN 325 MG TABLET (FP) PO ONE (00:04)
== END 2024-05-18 01:45 | disposition home or self-care (01) ==
LOC: JER 22:45
PROC: 2W3SX1Z Immobilization of Right Foot using Splint (ICD-10-PCS; principal; 2024-05-17)
DX: S99.911A Unspecified injury of right ankle, initial encounter (principal); S80.212A Abrasion, left knee, initial encounter; S90.812A Abrasion, left foot, initial encounter; M79.622 Pain in left upper arm; W10.8XXA Fall (on) (from) other stairs and steps, initial encounter
CPT/HCPCS: 73060-TC-LT-FY; 73610-TC-RT-FY; 73630-TC-RT-FY; 99284-25

== ENCOUNTER 2024-06-12 15:33 | Emergency (ER) | payer OTHER ==
[2024-06-12 15:54] VITALS: BP 95/61; PULSE 81; RESP 16; TEMP 97.9; BMI 22.6
== END 2024-06-12 20:15 | disposition home or self-care (01) ==
LOC: JERFT 15:33
DX: M79.604 Pain in right leg (principal); R20.0 Anesthesia of skin
CPT/HCPCS: 93971-TC; 99284-25